=== PATIENT | female | born 1955 | race Caucasian/White ===

== ENCOUNTER 2017-09-23 15:45 | Inpatient (IN) | payer MEDICARE, MEDICAID ==
[2017-09-23 16:36] LABS: #Eosinphils 0.3 thou/uL (0.0-0.7); #Lymphocytes 2.2 thou/uL (1.20-3.40); #Monocytes 0.7 thou/uL (0.11-0.59); #Neutrophils 4.3 thou/uL (1.40-6.50); %Basophils 0.6 % (0.0-1.0); %Eosinophils 4.1 % (0.0-10.0); %Lymphocytes 28.8 % (21.0-51.0); %Monocytes 9.8 % (0.0-10.0); %Neutrophils 56.7 % (42.0-75.0); Hemoglobin 14.4 g/dL (12.0-16.0); Mean Corpuscular HGB CONC 33.7 g/dL (32.0-36.0); Mean Corpuscular Hemoglobin 30.1 pg (27.0-31.0); Mean Corpuscular Volume 89.5 fl (81.0-99.0); Mean Platelet Volume 6.4 fL (7.4-10.4); Platelet Count 399 thou/uL (130-400); RBC Distribution Width 12.1 % (11.5-14.5); Red Blood Cell (RBC) Count 4.78 mill/uL (4.20-5.40); White Blood Cell (WBC) Count 7.6 thou/uL (4.8-10.8)
[2017-09-23 17:05] LABS: Bilirubin Negative (Negative); Blood, Urine Large (Negative); Glucose, Urine (Dipstick) Negative (Negative); Leukocyte Moderate (Negative); Nitrite Positive (Negative); Protein, Urine (Dipstick) 30 mg/dL (Neg-Trace); Specific Gravity, Urine 1.015 (1.005-1.030); Urobilinogen 0.2 mg/dL (0.2-1.0)
[2017-09-23 17:06] LABS: ALT (SGPT) 10 U/L (8-55); AST (SGOT) 13 U/L (5-34); Albumin 3.9 g/dL (3.4-4.8); Alkaline Phosphatase 93 U/L (40-150); Anion Gap 12 mmol/L (10-20); BUN (Urea Nitrogen) 22 mg/dL (9.8-20.1); Bilirubin, Total 0.3 mg/dL (0.2-1.2); Calc. Creatinine Clearance 0 mL/min (70-130); Calcium 9.3 mg/dL (7.8-10.44); Carbon Dioxide 23 mmol/L (23-31); Chloride 109 mmol/L (98-107); Estimated GFR-MDRD 50; Lipase 63 U/L (8-78); Potassium 3.5 mmol/L (3.5-5.1); Protein, Total 6.9 g/dL (6.0-8.3); Sodium 140 mmol/L (136-145)
[2017-09-23 17:07] LABS: Clarity Cloudy (Clear)
[2017-09-23 17:14] LABS: Glucose 59 mg/dL (80-115)
[2017-09-23 17:15] LABS: Bacteria/HPF 4+ HPF (None Seen); Hyaline Casts/LPF NONE SEEN LPF (0-3 Hyaline); RBC/HPF GREATER THAN 50-TNTC HPF (0-3); Squamous Epithelial 0-3 HPF (0-3)
[2017-09-23] MEDS ORDERED: Morphine 10 MG/ML VIAL ONE (17:36)
[2017-09-23] MEDS ORDERED: Dextrose 50% Abboject 50 ML SYRINGE ONE (17:36)
--- NOTE | 2017-09-23 18:18 | CT ---
CT ABDOMEN AND PELVIS WITHOUT CONTRAST: 09/23/17 Multiple axial tomograms obtained through the abdomen and pelvis with IV contrast. Oral contrast was not administered. INDICATIONS: Abdominal pain. Hematuria. FINDINGS: Lung bases are clear. the liver, spleen, and pancreas unremarkable. The stomach is distended with ingested material. Duodenum unremarkable. There is a small adenoma involving the medial limb of the left adrenal gland. This measures approxima tely 2.0 cm and is stable when compared to CT of abdomen dated 03/16/16. Review of the kidneys reveals a large staghorn type calculus involving the right renal pelvis with th e staghorn calculus extending into the right lower pole calyces and collecting structures. There is i nflammatory haziness surrounding the proximal right ureter. There is no evidence of ureteral calculus . The left kidney is small, although does show enhancement indicating function. There is no left hydron ephrosis. There is radiopaque material in the dependent portion of the urinary bladder which would indicate rec ently passed stones or primary bladder calculus this appears to layer which may represent numerous ti ny stones or gravel within the urinary bladder. Small bowel loops are unremarkable. Colon is unremarkable. Appendix unremarkable. The uterus and adnexa appear unremarkable. IMPRESSION: 1. Staghorn type calculus in the right renal pelvis and extending into the right lower pole raciel ecting structures. There is inflammatory haziness surrounding the right renal pelvis and proximal rig ht ureter. 2. Tiny stones and/or gravel which are seen in the dependent portion of the urinary bladder. 3. There is suggestion of mild bladder wall thickening. This was also described on the prior exa m. The prior study from 2016 also showed a tiny calculus in the bladder. 4. There is a left adrenal adenoma which is stable. POS: [facility]
[2017-09-23] MEDS ORDERED: ISOVUE-370 76%-LOCM 1 ML ONE (18:31)
[2017-09-23] MEDS ORDERED: cefTRIAXone\\ROCEPHIN 2 GM in Sodium Chloride 0.9% 100 ML IVPB SCH (18:45)
[2017-09-23] MEDS ORDERED: Acetaminophen 325 MG TAB PO PRN ×2 (21:16→22:13)
[2017-09-23] MEDS ORDERED: Sodium Chloride 0.9% 1,000 ML IV SCH (21:16)
[2017-09-23] MEDS ORDERED: Ondansetron ODT 4 MG TAB SL PRN (21:16)
[2017-09-23] MEDS ORDERED: Ondansetron HCl/PF 4 MG/2 ML Vial IVP PRN (21:16)
[2017-09-23] MEDS ORDERED: Morphine 4 MG/ML VIAL IV PRN (21:19)
[2017-09-23] MEDS ORDERED: Bisacodyl 5 MG TAB PO PRN (22:13)
[2017-09-23 22:43] LABS: Hemoglobin 13.6 g/dL (12.0-16.0)
--- NOTE | 2017-09-23 23:06 | HP ---
PRIMARY CARE PROVIDER: Hoang Gayle M.D. CHIEF COMPLAINT: Hematuria. HISTORY OF PRESENT ILLNESS: Ms. Moreira is a pleasant 61-year-old lady who was seen at [facility] on 09/23/2017. She reports that one week ago, she developed right lower quadrant abdominal pain. She describes it a s on and off initially, but constant over the last couple of days, 10/10 at its worst, sharp, nonradi ating, no known aggravating factors, but improved with morphine in the emergency room. She also reports that she had blood in her stools over the last week, but that has resolved. She als o reports that she had blood in her urine. She also reports pressures over her urinary bladder, which was dull and constant. She reports that h er urine started clearing up of blood earlier today morning. She reports generalized weakness. She denies any fevers or chills. She denies any nausea, vomiting or diarrhea. Abdominal pain has improv ed at this time after receiving morphine. REVIEW OF SYSTEMS: All other systems reviewed and found to be negative. PAST MEDICAL HISTORY: Multiple sclerosis, hypertension, Clostridium difficile, recurrent urinary tra ct infections and nephrolithiasis. PAST SURGICAL HISTORY: Urostomy with ileal conduit and cholecystectomy. PSYCHIATRIC HISTORY: Depression. FAMILY HISTORY: Significant for diabetes and multiple sclerosis. ALLERGIES: LEVOFLOXACIN and PENICILLIN. SOCIAL HISTORY: The patient denies tobacco use, alcohol use or recreational drug use. She lives [facility]. CURRENT MEDICATIONS: Copaxone 20 mg subcutaneously daily, tramadol 50 mg every 6 hours as needed, Xa nax 0.25 mg 3 times a day as needed, probiotic 1 capsule daily, Myrbetriq 25 mg daily, cholestyramine 4.5 grams every 3 days, fluoxetine 40 mg daily, Xanax 0.25 mg at bedtime, 3,4-diaminopyridine 1 caps ule 3 times a day, and aspirin 81 mg daily. PHYSICAL EXAMINATION: GENERAL: On examination, Ms. Moreira is awake and alert, not in acute distress. VITAL SIGNS: Blood pressure is 141/84, pulse is 77, she is breathing at rate of 19 and saturating 95 % on room air. She is afebrile. EYES: No scleral icterus. No conjunctival pallor. ENT: Dry mucosal membranes, no oropharyngeal erythema or exudates. NECK: Supple, nontender, trachea is midline. RESPIRATORY: Accessory muscles of breathing are not active. Chest wall movements are symmetric bila terally. Lungs clear to auscultation, without wheeze, rhonchi or crepitations. CARDIOVASCULAR: S1 and S2 are heard, regular. Peripheral pulses palpable. No carotid bruit, no per icardial rub. ABDOMEN: Soft, mild right CVA tenderness, no guarding or rigidity, bowel sounds heard, no hepatomega ly, no splenomegaly. She has an ileal conduit, that is draining clear urine. NEUROLOGIC: She has right-sided weakness. Deep tendon reflexes are 2+. SKIN: No rashes or subcutaneous nodules. LYMPHATIC: No cervical lymphadenopathy. PSYCHIATRIC: Normal mood, normal affect, patient is oriented to person, place, and time. LABORATORY DATA AND IMAGING: Ms. Moreira's labs and investigations were reviewed. I reviewed her e lectrocardiogram, which shows normal sinus rhythm, no ST changes to suggest an acute coronary syndrom e. I also reviewed CT scan of abdomen and pelvis, which shows staghorn calculus in the right renal p nuno. She also has left adrenal adenoma, which is stable according to radiologist. She has a kathie l white count, normal hemoglobin, normal platelet count, normal sodium, normal potassium, normal crea tinine, normal liver profile, normal lipase and urinalysis that is positive for blood, nitrite and le ukocyte esterase. ASSESSMENT AND PLAN: Ms. Moreira is a pleasant 61-year-old lady who was seen at [facility] on 09/23/2017. Her problem list includes: 1. Hematuria: Most likely secondary to complicated urinary tract infection in the form of pyeloneph ritis along with staghorn calculus. 2. Urinary tract infection. She has received a dose of ceftriaxone in the emergency room, which I w ill continue for now. Having said that, she had urinary tract infections in the past. In 08/2016, s he had a urinary tract infection with Escherichia coli, which was pansensitive as well as ESBL Klebsi gagan pneumonia, which was zavala resistant including to meropenem. We will await urine cultures and con sult Infectious Diseases if necessary. 3. Staghorn calculus: Urology Service is being consulted by emergency room physician for help with further management. 4. Hematochezia: The patient reports blood in the stool, which has resolved now. We will check sto ol for occult blood. We will check serial H&H. If hemoglobin drops, we will consult Gastroenterolog y Service. 5. Multiple sclerosis: Continue home medications. Many thanks for allowing me to participate in your patient's care. Please feel free to contact me wi th any questions or concerns. LEVEL OF RISK: High. LEVEL OF COMPLEXITY: High.
[2017-09-23 23:21] VITALS: BMI 24.9
[2017-09-24] MEDS ORDERED: traMADol HCl 50 MG TAB PO PRN (01:26)
[2017-09-24] MEDS ORDERED: ALPRAZolam 0.25 MG TAB PO SCH (01:45)
[2017-09-24] MEDS: Sodium Chloride 0.9% 1,000 ML IV SCH ×2 (01:50→08:14)
[2017-09-24 05:34] LABS: #Basophils 0.1 thou/uL (0.0-0.2); #Eosinphils 0.4 thou/uL (0.0-0.7); #Lymphocytes 2.4 thou/uL (1.20-3.40); #Monocytes 0.9 thou/uL (0.11-0.59); #Neutrophils 5.4 thou/uL (1.40-6.50); %Basophils 0.6 % (0.0-1.0); %Eosinophils 4.5 % (0.0-10.0); %Lymphocytes 25.7 % (21.0-51.0); %Monocytes 10.2 % (0.0-10.0); %Neutrophils 58.9 % (42.0-75.0); Hemoglobin 12.3 g/dL (12.0-16.0); Mean Corpuscular HGB CONC 34.6 g/dL (32.0-36.0); Mean Corpuscular Hemoglobin 31.2 pg (27.0-31.0); Mean Corpuscular Volume 90.1 fl (81.0-99.0); Mean Platelet Volume 6.8 fL (7.4-10.4); Platelet Count 315 thou/uL (130-400); RBC Distribution Width 12.1 % (11.5-14.5); Red Blood Cell (RBC) Count 3.96 mill/uL (4.20-5.40); White Blood Cell (WBC) Count 9.2 thou/uL (4.8-10.8)
[2017-09-24 05:42] LABS: Anion Gap 10 mmol/L (10-20); BUN (Urea Nitrogen) 18 mg/dL (9.8-20.1); Calc. Creatinine Clearance 67 mL/min (70-130); Calcium 8.2 mg/dL (7.8-10.44); Carbon Dioxide 20 mmol/L (23-31); Chloride 114 mmol/L (98-107); Estimated GFR-MDRD 60; Glucose 95 mg/dL (80-115); Potassium 3.3 mmol/L (3.5-5.1); Sodium 141 mmol/L (136-145)
[2017-09-24] MEDS: FLUoxetine HCl 20 MG CAP PO SCH (07:53)
[2017-09-24] MEDS: Aspirin 81 mg Enteric Coated Tablet PO SCH (07:55)
[2017-09-24] MEDS: Saccharomyces boulardii 250 MG CAP PO SCH (07:55)
[2017-09-24] MEDS: Cetirizine HCl 10 MG TAB PO SCH (08:14)
[2017-09-24] MEDS ORDERED: Enoxaparin Sodium 40 MG/0.4 ML SYRINGE SC SCH (09:00)
[2017-09-24] MEDS ORDERED: Cholestyramine/Aspartame 4 gm Packet PO SCH (09:00)
--- NOTE | 2017-09-24 11:01 | PDOC.PN ---
- Subjective Encounter Start Date: 09/24/17 Encounter Start Time: 10:59 Subjective: no fever, hematura cleared - Objective MAR Reviewed: Yes Vital Signs & Weight: Vital Signs (12 hours) Temp Pulse Resp BP Pulse Ox 09/24/17 07:23 98.2 F 90 18 09/24/17 06:58 98.2 F 90 18 120/78 95 09/24/17 04:00 97.9 F 86 20 116/70 95 09/24/17 00:00 99.1 F 81 20 111/69 94 L Weight Weight 149 lb 14.629 oz Result Diagrams: 09/24/17 04:42 09/24/17 04:42 Phys Exam - Physical Examination Neck: no JVD Respiratory: clear to auscultation bilateral Cardiovascular: RRR, no significant murmur Gastrointestinal: soft, positive bowel sounds Musculoskeletal: no edema R hemiplegia Dx/Plan (1) Hematuria, gross Status: Acute (2) UTI (urinary tract infection) Status: Acute Comment: with urostomy+ (3) HTN (hypertension) Code(s): I10 - ESSENTIAL (PRIMARY) HYPERTENSION Status: Chronic Qualifiers: Hypertension type: essential hypertension Qualified Code(s): I10 - Essential (primary) hypertension (4) Hemiplegia Code(s): G81.90 - HEMIPLEGIA, UNSPECIFIED AFFECTING UNSPECIFIED SIDE Status: Chronic Qualifiers: Hemiplegia type: flaccid Cerebrovascular disease type: other Hemiplegia laterality: right dominant side Comment: multiple scherosis (5) History of urostomy Code(s): Z98.89 - OTHER SPECIFIED POSTPROCEDURAL STATES * DO NOT USE * Status : Chronic (6) Multiple sclerosis Code(s): G35 - MULTIPLE SCLEROSIS Status: Chronic (7) Nephrolithiasis Status: Chronic - Plan C&S pending -: cont iv antibx -: need 2 overnites for culture ID and sensitivities in complicated UTI * .
--- NOTE | 2017-09-24 13:31 | RAD ---
KUB: Date: 09/24/17 HISTORY: Right renal calculus. FINDINGS/IMPRESSION: There is a right-sided staghorn calculus. The bowel gas pattern is unremarkable. POS: [facility]
[2017-09-24] MEDS: AMINOPYRIDINE PO SCH (13:40)
--- NOTE | 2017-09-24 17:17 | CON ---
DATE OF CONSULTATION: 09/24/2017 HISTORY OF PRESENT ILLNESS: A 61-year-old white female who I was asked to see today by the [facility] team. I have seen her years ago. She has a long history of MS and she developed a neurogenic feng dder related to it and she developed a high pressure neurogenic bladder and renal insufficiency. She was seen by a reconstructive urologist in [place] probably 5-7 years ago and had an ileal vesicostom y procedure done in order to allow some continence of urine and also to lower her bladder pressures t o protect her upper tracts. She was seeing the urologist there until I guess they retired and moved and she has not seen urologist recently. She knows she has had a stone in her right kidney and I hav e looked back through her records of those in 2016, she did have a small stone in the right renal pel vis. Now, she has a large partial staghorn that goes from the renal pelvis into the lower pole. She has not been having pain in her flank related to this and it does not appear that is causing any obs truction. She has had frequent urinary tract infections/urinary colonization. She says she normally is not symptomatic from these in terms of fevers, chills or discomfort, but she will have some vagin al drainage and she will get treated for these and unfortunately, she started develop problems with v abraham highly resistant urinary tract bacteria and frequent yeast infections. She has seen Dr. Omkar vaughan this in the past. I believe he has been reconsulted at this time. She has come into the hospital this time because she was having some blood that she saw her urine, blood that she saw in her stools and also some bloody discharge from her vagina. Her white count was normal. She has been afebrile w ith stable vital signs while she has been here. Her hemoglobin is 14.4, when she got in 12.3 now. H er creatinine is 1.1 when she came, 0.9 now. Urinalysis which was probably taken from her bag shows greater than 50 red cells, greater than 50 white cells and 4+ bacteria. Microbiology has been set up and is pending. She did have a CAT scan done which as mentioned shows the right partial staghorn st one. She has some atrophy of the left kidney. This is not new. It was seen on her CAT scan a coupl e of years ago. She also has some small calculi in the dependent portion of her bladder. PAST MEDICAL SURGICAL HISTORY: Includes ileal vesicostomy and cholecystectomy. Her medical history includes her multiple sclerosis in which she is now on a wheelchair for that and she has mentioned in the past, renal insufficiency, although her creatinine currently is normal. She does have some hist ory of anxiety and depressive disorders. ALLERGIES: She has allergies to PENICILLIN and to QUINOLONES. ROUTINE MEDICATIONS: All listed, but also have included Myrbetriq. PHYSICAL EXAMINATION: ABDOMEN: She does not have flank tenderness. Her abdomen is soft, nontender. Vesicostomy site is d ressed with a drainage bag and looking through it, does not look abnormal. Did not remove the bag at this time, however. GENITOURINARY: Vaginal exam, there is a little bit of vaginal drainage, which is some slight discolo ration, it is nothing that appears to be actively bleeding and I do feel obvious mass vaginally. IMPRESSION: 1. Right partial staghorn stone. 2. Left renal atrophy. 3. 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 4. Unfortunately, the development of resistant urinary tract pathogens related to frequent use of an tibiotics. 5. Recurrent yeast infections related to use of antibiotics. I talked with her about the size of th e stone and the fact that she probably does need to have this treated. I think it is probably too bi g for ureteroscopy or extracorporeal shockwave lithotripsy is probably something that would be requir ed for and have to review this with Radiology to see if they can easily get a nephrostomy tube in her . We will get a KUB on her today and maybe we can get a little better idea how big the stone is. We will follow along with you. I think that cutting back on a treatment for asymptomatic infections wo uld be tamayo in a patient with ileal vesicostomy as they will always be colonized with bacteria and he r urinalysis will always appear abnormal. I will follow along with you.
[2017-09-24] MEDS: ALPRAZolam 0.25 MG TAB PO PRN (17:59)
[2017-09-24] MEDS: cefTRIAXone\\ROCEPHIN 1 GM in Sodium Chloride 0.9% 100 ML IVPB SCH (21:59)
[2017-09-25] MEDS: Sodium Chloride 0.9% 1,000 ML IV SCH ×2 (01:44→20:10)
[2017-09-25] MEDS: ALPRAZolam 0.25 MG TAB PO PRN ×2 (01:45→23:10)
[2017-09-25] MEDS: AMINOPYRIDINE PO SCH ×2 (10:01→16:40)
[2017-09-25] MEDS: Saccharomyces boulardii 250 MG CAP PO SCH (10:02)
[2017-09-25] MEDS: Aspirin 81 mg Enteric Coated Tablet PO SCH (10:02)
[2017-09-25] MEDS: FLUoxetine HCl 20 MG CAP PO SCH (10:02)
[2017-09-25] MEDS: Cetirizine HCl 10 MG TAB PO SCH (10:03)
[2017-09-25] MEDS: GLATIRAMER ACETATE 20 MG SC SCH (10:09)
--- NOTE | 2017-09-25 10:46 | PDOC.PN ---
- Subjective Encounter Start Date: 09/25/17 Encounter Start Time: 09:15 -: old records requested/rev Patient seen and examined. No new complaints. No overnight events - Objective MAR Reviewed: Yes Vital Signs & Weight: Vital Signs (12 hours) Temp Pulse Resp BP Pulse Ox 09/25/17 07:14 98.1 F 86 18 135/84 95 09/25/17 04:29 98.7 F 84 20 96 I&O: 09/24/17 09/25/17 09/26/17 06:59 06:59 06:59 Intake Total 2340 Output Total 1200 Balance 1140 Result Diagrams: 09/24/17 04:42 09/24/17 04:42 Phys Exam - Physical Examination Constitutional: NAD HEENT: PERRLA, moist MMs, sclera anicteric Neck: no JVD, supple Respiratory: no wheezing, no rales, no rhonchi Cardiovascular: RRR, no significant murmur, no rub Gastrointestinal: soft, non-tender, no distention, positive bowel sounds urostomy Musculoskeletal: no edema, pulses present right side hemiplegia Psychiatric: normal affect, A&O x 3 Skin: no rash, normal turgor Dx/Plan (1) Hematuria, gross Status: Acute (2) Sepsis Code(s): A41.9 - SEPSIS, UNSPECIFIED ORGANISM Status: Acute Qualifiers: Sepsis type: sepsis due to unspecified organism Qualified Code(s): A41.9 - Sepsis, unspecified organism (3) Staghorn renal calculus Code(s): N20.0 - CALCULUS OF KIDNEY Status: Acute (4) UTI (urinary tract infection) Status: Acute Comment: with urostomy+ (5) HTN (hypertension) Code(s): I10 - ESSENTIAL (PRIMARY) HYPERTENSION Status: Chronic Qualifiers: Hypertension type: essential hypertension Qualified Code(s): I10 - Essential (primary) hypertension (6) Hemiplegia Code(s): G81.90 - HEMIPLEGIA, UNSPECIFIED AFFECTING UNSPECIFIED SIDE Status: Chronic Qualifiers: Hemiplegia type: flaccid Cerebrovascular disease type: other Hemiplegia laterality: right dominant side Comment: multiple scherosis (7) History of urostomy Code(s): Z98.89 - OTHER SPECIFIED POSTPROCEDURAL STATES * DO NOT USE * Status : Chronic (8) Multiple sclerosis Code(s): G35 - MULTIPLE SCLEROSIS Status: Chronic (9) Nephrolithiasis Status: Chronic - Plan cont current plan of care, continue antibiotics * continue rocephin * urology following * medication reviewed as below * symptomatic treatment. Review of Systems - Review of Systems ENT: negative: Ear Pain, Ear Discharge, Nose Pain, Nose Discharge, Nose Congestion, Mouth Pain, Mouth Swelling, Throat Pain, Throat Swelling, Other Respiratory: negative: Cough, Dry, Shortness of Breath, Hemoptysis, SOB with Excertion, Pleuritic Pain, Sputum, Wheezing Cardiovascular: negative: chest pain, palpitations, orthopnea, paroxysmal nocturnal dyspnea, edema, light headedness, other Gastrointestinal: negative: Nausea, Vomiting, Abdominal Pain, Diarrhea, Constipation, Melena, Hematochezia, Other Genitourinary: negative: Dysuria, Frequency, Incontinence, Hematuria, Retention , Other Musculoskeletal: negative: Neck Pain, Shoulder Pain, Arm Pain, Back Pain, Hand Pain, Leg Pain, Foot Pain, Other Skin: negative: Rash, Lesions, Francisco, Bruising, Other - Medications/Allergies Allergies/Adverse Reactions: Allergies Allergy/AdvReac Type Severity Reaction Status Date / Time levofloxacin [From Levaquin] Allergy Unknown Verified 08/28/15 22:07 Penicillins Allergy Verified 08/28/15 22:07 Medications: Current Medications Acetaminophen (Tylenol) 650 mg PO Q4H PRN PRN Reason: Headache/Fever or Pain Alprazolam (Xanax) 0.25 mg PO TID PRN PRN Reason: Anxiety Last Admin: 09/25/17 01:45 Dose: 0.25 mg Aspirin (Ecotrin) 81 mg PO DAILY [facility] Last Admin: 09/25/17 10:02 Dose: Not Given Bisacodyl (Dulcolax) 10 mg PO DAILYPRN PRN PRN Reason: Constipation Cetirizine HCl (Zyrtec) 10 mg PO DAILY [facility] Last Admin: 09/25/17 10:03 Dose: Not Given Cholestyramine Resin (Questran Light) 2 gm PO Q3DAYS [facility] Last Admin: 09/24/17 07:54 Dose: Not Given Fluoxetine HCl (Prozac) 40 mg PO DAILY [facility] Last Admin: 09/25/17 10:02 Dose: 40 mg Ceftriaxone Sodium 1 gm/ (Sodium Chloride) 100 mls @ 200 mls/hr IVPB Q24HR [facility] Last Admin: 09/24/17 21:59 Dose: 100 mls Sodium Chloride (Normal Saline 0.9%) 1,000 mls @ 70 mls/hr IV .[id number] [facility] Last Admin: 09/25/17 01:44 Dose: 1,000 mls Mirabegron (Myrbetriq Er) 25 mg PO DAILY [facility] Last Admin: 09/25/17 10:03 Dose: Not Given (4-Aminopyridine 1 (Cap) 10 Mg) 1 each PO 0900,1400 [facility] Last Admin: 09/25/17 10:01 Dose: 1 each (Glatiramer Acetate [Copaxone] 20 Mg) Hm Med 0 each SC DAILY [facility] Last Admin: 09/25/17 10:09 Dose: 1 each Saccharomyces Boulardii (Florastor) 250 mg PO DAILY [facility] Last Admin: 09/25/17 10:02 Dose: 250 mg Sodium Chloride (Flush - Normal Saline) 10 ml IVF Q12HR [facility] Last Admin: 09/25/17 10:05 Dose: Not Given Sodium Chloride (Flush - Normal Saline) 10 ml IVF PRN PRN PRN Reason: Saline Flush Tramadol HCl (Ultram) 50 mg PO Q6HR PRN PRN Reason: Pain Last Admin: 09/24/17 17:59 Dose: 50 mg
[2017-09-25 11:44] LABS: INR-International Normal Ratio 1.1; Prothrombin Time 14.1 SEC (12.0-14.7)
[2017-09-25] MEDS: cefTRIAXone\\ROCEPHIN 1 GM in Sodium Chloride 0.9% 100 ML IVPB SCH (20:09)
[2017-09-26] MEDS: AMINOPYRIDINE PO SCH (08:02)
[2017-09-26] MEDS: FLUoxetine HCl 20 MG CAP PO SCH (08:03)
[2017-09-26] MEDS: Saccharomyces boulardii 250 MG CAP PO SCH (08:03)
[2017-09-26] MEDS: Cetirizine HCl 10 MG TAB PO SCH (08:04)
[2017-09-26] MEDS: Sodium Chloride 0.9% 1,000 ML IV SCH (11:19)
[2017-09-26] MEDS: GLATIRAMER ACETATE 20 MG SC SCH (11:21)
[2017-09-26 11:28] VITALS: BP 124/78; TEMP 97.9
--- NOTE | 2017-09-26 12:03 | PDOC.PN ---
- Subjective Encounter Start Date: 09/26/17 Encounter Start Time: 12:02 Ms. Moreira was seen today in follow-up of nephrolithiasis. she does not have any abdominal pain or flank pain today. - Objective MAR Reviewed: Yes Vital Signs & Weight: Vital Signs (12 hours) Temp Pulse Resp BP BP Pulse Ox 09/26/17 11:00 97.9 F 83 16 124/78 96 09/26/17 08:00 98.2 F 82 18 09/26/17 07:22 98.2 F 82 18 125/73 95 09/26/17 04:00 98.5 F 84 18 131/73 96 I&O: 09/25/17 09/26/17 09/27/17 06:59 06:59 06:59 Intake Total 2340 1430 Output Total 1200 4350 Balance 1140 -2920 Result Diagrams: 09/24/17 04:42 09/24/17 04:42 Phys Exam - Physical Examination HEENT: PERRLA Respiratory: no wheezing, no rales, no rhonchi, clear to auscultation bilateral Cardiovascular: RRR, no significant murmur, no rub Gastrointestinal: soft, non-tender, no distention, positive bowel sounds Musculoskeletal: no edema Dx/Plan (1) Asymptomatic bacteriuria Code(s): R82.71 - BACTERIURIA Status: Acute (2) Hematuria, gross Status: Acute (3) Staghorn renal calculus Code(s): N20.0 - CALCULUS OF KIDNEY Status: Acute (4) HTN (hypertension) Code(s): I10 - ESSENTIAL (PRIMARY) HYPERTENSION Status: Chronic Qualifiers: Hypertension type: essential hypertension Qualified Code(s): I10 - Essential (primary) hypertension (5) Multiple sclerosis Code(s): G35 - MULTIPLE SCLEROSIS Status: Chronic - Plan * Staghorn Calculus- Urology input appreciated * She is stable for discharge home today and outpatient follow-up for ureteral STENT.
--- NOTE | 2017-09-26 12:32 | DIS ---
DATE OF ADMISSION: 09/23/2017 DATE OF DISCHARGE: 09/26/2017 PRIMARY CARE PHYSICIAN: Hoang Gayle M.D. DISCHARGE DISPOSITION: Home. PRIMARY DISCHARGE DIAGNOSES: 1. Hematuria secondary to staghorn nephrolithiasis. 2. Hypertension. 3. History of multiple sclerosis. 4. History of recurrent urinary tract infections due to urinary retention from neurogenic bladder fr om multiple sclerosis. DISCHARGE MEDICATIONS: Include tramadol 50 mg q.6 as needed, Florastor 250 mg daily, Myrbetriq 25 mg extended release daily, Copaxone 20 mg subcu daily, Prozac 40 mg daily, Questran 1 packet every 3 da ys, Zyrtec 10 mg daily, aspirin 81 mg a day, alprazolam 0.25 mg t.i.d. as needed and aminopyridine 1 tablet twice a day. PROCEDURES DONE DURING ADMISSION: The patient had a CT scan of the abdomen and pelvis in which there was a staghorn type calculus in the right renal pelvis extending into the right lower pole of the co llecting structures. There was tiny stones and/or gravel seen in the dependent portion of the urinar y bladder. There was a left adrenal adenoma, which was stable. The patient also had an x-ray of the abdomen, which showed a right-sided staghorn calculus. CODE STATUS: Full Code. ALLERGIES: LEVOFLOXACIN and PENICILLINS. CONSULTANTS DURING HOSPITALIZATION: Include Dr. Napoles with Urology. HOSPITAL COURSE: Ms. Moreira is a pleasant 61-year-old female who was admitted to the hospital afte r experiencing hematuria and some flank pain. She was admitted and found to have a staghorn calculus in the right renal pelvis. She was seen by Urology. The treatment of which was discussed. It did not appear that the stone was causing any obstruction and in fact her creatinine actually improved wi th some mild hydration from 1.1 to 0.94 during the hospital stay; however, it was recommended that bob honeycutt undergo a ureteral stent. However, because she had been on aspirin, this would need to be delayed and she will be discharged home and then brought back in the outpatient setting to have the ureteral stent placed. She was also found to have a urinary tract infection, which was thought to be more asy mptomatic bacteriuria and chronic colonization then due to a true invasive infection. For this reaso n, antibiotics will be discontinued. She has no fever, no elevated white count and at the time of di scharge, no symptoms attributable to urinary tract infection. She will therefore be discharged home and to have close outpatient followup.
== END 2017-09-26 14:55 | disposition home or self-care (01) | DRG 694 ==
LOC: ERS 15:45 → T4-B 20:49 → INTOOBSV 20:49 → OBSVTOIN 09-24 10:51
PROVIDERS: ADMIT Family Medicine; ATTEND Family Medicine
DX: N20.0 Calculus of kidney (principal); K92.1 Melena; G81.91 Hemiplegia, unspecified affecting right dominant side; R31.0 Gross hematuria; D35.00 Benign neoplasm of unspecified adrenal gland; I10 Essential (primary) hypertension; N26.1 Atrophy of kidney (terminal); G35 Multiple sclerosis; F32.9 Major depressive disorder, single episode, unspecified; Z88.0 Allergy status to penicillin; Z88.1 Allergy status to other antibiotic agents; Z90.49 Acquired absence of other specified parts of digestive tract
CPT/HCPCS: 36415; 36416; 74018; 74177; 80048; 80053; 81003; 81015; 82274; 83690; 85025; 85610; 85730; 87077; 87086; 87186; 93005; 94760; 96361; 96365; 96375; A4216; J0696; J2270; J7050

== ENCOUNTER 2017-10-03 19:10 | Inpatient (IN) | payer MEDICARE, MEDICAID ==
[2017-10-03 20:01] LABS: Hemoglobin 14.3 g/dL (12.0-16.0); Mean Corpuscular HGB CONC 33.6 g/dL (32.0-36.0); Mean Corpuscular Hemoglobin 30.4 pg (27.0-31.0); Mean Corpuscular Volume 90.4 fl (81.0-99.0); Mean Platelet Volume 6.8 fL (7.4-10.4); Platelet Count 320 thou/uL (130-400); RBC Distribution Width 12.4 % (11.5-14.5); Red Blood Cell (RBC) Count 4.72 mill/uL (4.20-5.40); White Blood Cell (WBC) Count 25.1 thou/uL (4.8-10.8)
[2017-10-03 20:12] LABS: Amphetamine Not Detected (NotDetected); Barbiturates Screen Not Detected (NotDetected); Benzodiazepine Screen Detected (NotDetected); Cocaine Metabolite Screen Not Detected (NotDetected); Medtox Control Line Valid? VALID (VALID); Medtox Reader # READER 4; Methadone Not Detected (NotDetected); Methamphetamine Not Detected (NotDetected); Opiate Screen Not Detected (NotDetected); Oxycodone Screen Not Detected (NotDetected); Phencyclidine (PCP) Not Detected (NotDetected); THC/Cannabinoid Screen Not Detected (NotDetected); Tricyclic Screen Not Detected (NotDetected)
[2017-10-03 20:19] LABS: ALT (SGPT) 38 U/L (8-55); AST (SGOT) 43 U/L (5-34); Acetaminophen Less than 6.0 mcg/mL (10.0-30.0); Albumin 3.8 g/dL (3.4-4.8); Alcohol Less than 10 mg/dL (Less than 10); Alkaline Phosphatase 87 U/L (40-150); Anion Gap 15 mmol/L (10-20); BUN (Urea Nitrogen) 22 mg/dL (9.8-20.1); Bilirubin, Total 0.6 mg/dL (0.2-1.2); Calc. Creatinine Clearance 0 mL/min (70-130); Carbon Dioxide 21 mmol/L (23-31); Chloride 107 mmol/L (98-107); Estimated GFR-MDRD 47; Globulin 2.8 g/dL (2.4-3.5); Glucose 137 mg/dL (80-115); Potassium 3.3 mmol/L (3.5-5.1); Protein, Total 6.6 g/dL (6.0-8.3); Salicylate Less than 8.0 mg/dL (15.0-30.0); Sodium 140 mmol/L (136-145)
[2017-10-03 20:24] LABS: CKMB 0.4 ng/mL (0-6.6); Troponin I Less than 0.010 ng/mL (< 0.028)
[2017-10-03 20:32] LABS: Band 23 % (5-11); Lymphocytes 4 % (21-51); MDiff Complete? YES; Monocytes 1 % (0-10); Neutrophil 72 % (42-75); PLT Morphology Comment Appears Adequate
[2017-10-03] MEDS ORDERED: Gentamicin Sulfate 80 MG in Premix Bag 1 BAG IVPB SCH (21:45)
[2017-10-03] MEDS ORDERED: Guaifenesin DM 100-10/5 ML UDCUP PO PRN (21:53)
[2017-10-03] MEDS ORDERED: Acetaminophen 325 MG TAB PO PRN (21:53)
[2017-10-03] MEDS ORDERED: traMADol HCl 50 MG TAB PO PRN (21:53)
[2017-10-03] MEDS ORDERED: Mag-Al 1200 mg/1200 mg/30 ML UDCUP PO PRN (21:53)
[2017-10-04] MEDS: Cefepime 2 GM in Sodium Chloride 0.9% 100 ML IVPB SCH ×2 (00:01→12:01)
[2017-10-04] MEDS: Sodium Chloride 0.9% 1,000 ML IV SCH ×3 (00:02→19:07)
[2017-10-04] MEDS: ALPRAZolam 0.25 MG TAB PO PRN ×3 (00:02→22:00)
[2017-10-04 00:19] VITALS: BMI 27.8
[2017-10-04 01:53] LABS: Lactic Acid 0.9 mmol/L (0.5-2.2)
[2017-10-04 04:45] LABS: #Lymphocytes 1.7 thou/uL (1.20-3.40); #Monocytes 1.2 thou/uL (0.11-0.59); #Neutrophils 11.5 thou/uL (1.40-6.50); %Basophils 0.1 % (0.0-1.0); %Eosinophils 0.3 % (0.0-10.0); %Lymphocytes 11.8 % (21.0-51.0); %Monocytes 8.4 % (0.0-10.0); %Neutrophils 79.4 % (42.0-75.0); Hemoglobin 11.5 g/dL (12.0-16.0); Mean Corpuscular Hemoglobin 30.4 pg (27.0-31.0); Mean Corpuscular Volume 89.5 fl (81.0-99.0); Mean Platelet Volume 6.8 fL (7.4-10.4); Platelet Count 241 thou/uL (130-400); RBC Distribution Width 12.3 % (11.5-14.5); Red Blood Cell (RBC) Count 3.79 mill/uL (4.20-5.40); White Blood Cell (WBC) Count 14.5 thou/uL (4.8-10.8)
[2017-10-04 04:56] LABS: Anion Gap 10 mmol/L (10-20); BUN (Urea Nitrogen) 24 mg/dL (9.8-20.1); Calc. Creatinine Clearance 67 mL/min (70-130); Calcium 8.1 mg/dL (7.8-10.44); Carbon Dioxide 23 mmol/L (23-31); Chloride 109 mmol/L (98-107); Estimated GFR-MDRD 58; Glucose 87 mg/dL (80-115); Potassium 3.2 mmol/L (3.5-5.1); Sodium 139 mmol/L (136-145)
--- NOTE | 2017-10-04 05:33 | HP ---
REASON FOR ADMISSION: Sepsis, urinary tract infection, history of staghorn calculus on the right. HISTORY OF PRESENTING ILLNESS: Please note, I have seen and examined patient on 10/03/2017. The patient had come for placement of percutaneous nephrostomy tube by Interventional Radiology yesterday. This could not be done due to anatomic positioning per Interventional Radiology report. Then patient went home and started sweating. She felt very hot. She normally moves her left upper extremity freely and wiggles her left toe due to multiple sclerosis, but she was unable to do these and she got worried. The patient finally managed to call EMS and was brought here. The patient also mentions that she usually has blood-tinged urine, but today it was very high colored. On arrival in ER, the patient was found to have had white count of 25 with a 23% bands. PAST MEDICAL AND SURGICAL HISTORY: History of multiple sclerosis with severe disability and she is essentially able to move only left upper extremity freely. Anxiety disorder, chronic right staghorn calculus with recurrent UTIs, cholecystectomy, ileostomy, tonsillectomy. The patient has history of multiple sclerosis from last 20 years and follows up with Dr. Raiza Escobedo for the same. CURRENT MEDICATIONS: The patient is on Copaxone 20 mg subcu daily, Ultram p.r.n. for pain, alprazolam 0.25 mg 3 times daily p.r.n. for anxiety, probiotic daily, Myrbetriq 25 mg daily, fluoxetine 40 mg daily, 4-diaminopyrimidin 1 capsule 3 times daily. Has been off aspirin for the procedure yesterday. ALLERGIES: LEVAQUIN and PENICILLIN. PERSONAL HISTORY: Does not abuse alcohol or drugs. No history of smoking. She lives by herself. Has a provider who comes 2 times a day. The provider comes in the morning and helps her into a electric wheelchair and she comes back in the evening to put her back into bed. The patient is able to manage herself with using her left upper extremity freely for dining and using remote for the TV and to call people. FAMILY HISTORY: Has a sister who is completely paralyzed with multiple sclerosis and lives in [place]. Mother at the age of 89 years of old age. Father when she was 12 years old, does not know the exact cause, he also had diabetes. Code status is DNR. This was discussed with patient. Power of consumer attorney is her caregiver and a close friend, Ms. Anderson. The patient has no children. REVIEW OF SYSTEMS: The following complete review of systems was negative, unless otherwise mentioned in the HPI or below: Constitutional: Weight loss or gain, ability to conduct usual activities. Skin: Rash, itching. Eyes: Double vision, pain. ENT/Mouth: Nose bleeding, neck stiffness, pain, tenderness. Cardiovascular: Palpitations, dyspnea on exertion, orthopnea. Respiratory: Shortness of breath, wheezing, cough, hemoptysis, fever or night sweats. Gastrointestinal: Poor appetite, abdominal pain, heartburn, nausea, vomiting, constipation, or diarrhea. Genitourinary: Urgency, frequency, dysuria, nocturia. Musculoskeletal: Pain, swelling. Neurologic/Psychiatric: Anxiety, depression. Allergy/Immunologic: Skin rash, bleeding tendency. PHYSICAL EXAMINATION: GENERAL: The patient is a 61-year-old female, who is currently not in any acute distress. VITAL SIGNS: Blood pressure 120/74, pulse 100 per minute, respiratory rate 22 per minute, temperature 98.4 degrees Fahrenheit, saturating 94% on room air. NECK: Supple, no elevated JVD. HEENT: Eyes: Extraocular muscles intact. Pupils are reacting to light. Oral cavity: Mucous membranes are dry. No exudates or congestion. CARDIOVASCULAR SYSTEM: S1, S2 heard. Regular rhythm. RESPIRATORY SYSTEM: Air entry 1+ bilateral. No rales or rhonchi. ABDOMEN: Soft, bowel sounds heard. The patient has an ileostomy bag. No rigidity or guarding. EXTREMITIES: Mild peripheral edema. No calf tenderness. VASCULAR SYSTEM: Peripheral pulses 1+ bilateral. No ischemic ulcerations or gangrene. CENTRAL NERVOUS SYSTEM: The patient is able to move only left upper extremity freely. All other three extremities are paralyzed due to multiple sclerosis. She also has foot drop on both sides. PSYCHIATRIC SYSTEM: The patient's mood is euthymic. No hallucinations or delusions. LABORATORY AND X-RAY FINDINGS: White count of 25, H&H 14 and 42, platelet count 320 with 72% neutrophils and 23% bands. Potassium 3.3, serum bicarbonate 21, BUN 22, creatinine 1.1, glucose 137, lactic acid 3.4, AST 43. Cardiac enzymes x1 is negative. Albumin is 3.8. EKG done shows sinus tachycardia at 103 beats per minute. There is questionable Q-wave seen in V2, V3 and poor R- wave progression. CLINICAL IMPRESSION AND PLAN: The patient will be admitted to medical floor for sepsis with urinary tract infection. She also has staghorn calculus on the right. The initial plan per patient was to have a nephrostomy tube placed by Interventional Radiology and further procedures on next Monday by Dr. Napoles for the staghorn calculus. She will be on normal saline at 100 mL per hour. Based on prior cultures and sensitivity, the patient will be placed on cefepime and Bactrim. A repeat blood and urine cultures have been sent from ER. We will continue her Prozac, Myrbetriq, Florastor and Ultram as before. We will also continue her MS medication including Copaxone and diaminopyrimidin. Dr. Sosa, her urologist, will also be consulted during her stay here. We will also consult Dr. Espitia for Infectious Disease. The patient's code status is DNR. This was discussed with patient. CHANDRAKANT
[2017-10-04] MEDS: AMINOPYRIDINE PO SCH ×2 (08:38→17:00)
[2017-10-04] MEDS: Potassium Chloride 20 MEQ TAB PO SCH ×2 (08:39→17:00)
[2017-10-04] MEDS: FLUoxetine HCl 20 MG CAP PO SCH (08:40)
[2017-10-04] MEDS: Saccharomyces boulardii 250 MG CAP PO SCH (08:40)
[2017-10-04] MEDS: Famotidine 20 MG TAB PO SCH ×4 (08:43→21:59)
[2017-10-04] MEDS: Docusate 100 MG CAP PO SCH ×2 (08:45→20:22)
[2017-10-04] MEDS ORDERED: Sulfameth/Trimethoprim DS 800-160mg TAB PO SCH (09:00)
--- NOTE | 2017-10-04 10:48 | ULT ---
BILATERAL LOWER EXTREMITY VENOUS DOPPLER ULTRASOUND: HISTORY: Right leg edema. TECHNIQUE: Hernandez-scale ultrasound with color-flow and spectral Doppler imaging of the deep venous systems of the lower extremities is performed bilaterally. FINDINGS: There is good flow, compression, and augmentation noted in the common femoral, femoral, deep femoral, popliteal, posterior tibial, and greater saphenous veins on either side. IMPRESSION: No evidence of deep venous thrombosis in either lower extremity. POS: LAUREL
--- NOTE | 2017-10-04 12:54 | PDOC.PN ---
- Subjective Encounter Start Date: 10/04/17 Encounter Start Time: 12:57 Patient seen and examined following admission for sepsis likely 2/2 UTI. Also has a staghorn calculus. Has no complaints. - Objective Resuscitation Status: Resuscitation Status DNR:Do Not Resuscitate MAR Reviewed: Yes Vital Signs & Weight: Vital Signs (12 hours) Temp Pulse Resp BP Pulse Ox 10/04/17 11:16 98.9 F 80 18 100/67 94 L 10/04/17 08:00 98.5 F 88 18 98 10/04/17 07:28 98.5 F 88 18 87/53 L 98 10/04/17 05:21 98.1 F 88 18 86/47 L 96 Weight Weight 157 lb 6.4 oz I&O: 10/03/17 10/04/17 10/05/17 06:59 06:59 06:59 Intake Total 1230 Output Total 200 Balance 1030 Result Diagrams: 10/04/17 04:09 10/04/17 04:09 Phys Exam - Physical Examination Constitutional: NAD HEENT: moist MMs, sclera anicteric, oral pharynx no lesions Neck: supple, full ROM Respiratory: no wheezing, no rales, no rhonchi, clear to auscultation bilateral Cardiovascular: RRR, no significant murmur, no rub Gastrointestinal: soft, non-tender, no distention, positive bowel sounds Musculoskeletal: no edema, pulses present Psychiatric: normal affect, A&O x 3 Skin: no rash, normal turgor Dx/Plan (1) Sepsis Code(s): A41.9 - SEPSIS, UNSPECIFIED ORGANISM Status: Acute Qualifiers: Sepsis type: sepsis due to unspecified organism Qualified Code(s): A41.9 - Sepsis, unspecified organism (2) Hypokalemia Code(s): E87.6 - HYPOKALEMIA Status: Acute (3) Staghorn renal calculus Code(s): N20.0 - CALCULUS OF KIDNEY Status: Chronic (4) HTN (hypertension) Code(s): I10 - ESSENTIAL (PRIMARY) HYPERTENSION Status: Chronic Qualifiers: Hypertension type: essential hypertension Qualified Code(s): I10 - Essential (primary) hypertension (5) Hemiplegia Code(s): G81.90 - HEMIPLEGIA, UNSPECIFIED AFFECTING UNSPECIFIED SIDE Status: Chronic Qualifiers: Hemiplegia type: flaccid Cerebrovascular disease type: other Hemiplegia laterality: right dominant side Comment: 2/2 multiple sclerosis (6) History of urostomy Code(s): Z98.89 - OTHER SPECIFIED POSTPROCEDURAL STATES * DO NOT USE * Status : Chronic (7) Multiple sclerosis Code(s): G35 - MULTIPLE SCLEROSIS Status: Chronic - Plan cont current plan of care, continue antibiotics, out of bed/ambulate Continue antibiotics Continue IVF f/u cultures Urology and ID consulted. Review of Systems - Medications/Allergies Allergies/Adverse Reactions: Allergies Allergy/AdvReac Type Severity Reaction Status Date / Time levofloxacin [From Levaquin] Allergy Unknown Verified 10/04/17 00:05 Penicillins Allergy Verified 10/04/17 00:05 Medications: Current Medications Acetaminophen (Tylenol) 650 mg PO Q4H PRN PRN Reason: Headache/Fever or Pain Al Hydroxide/Mg Hydroxide (Maalox) 30 ml PO Q6H PRN PRN Reason: Heartburn or Indigestion Alprazolam (Xanax) 0.25 mg PO TID PRN PRN Reason: Anxiety Last Admin: 10/04/17 00:02 Dose: 0.25 mg Docusate Sodium (Colace) 100 mg PO BID [facility] Last Admin: 10/04/17 08:45 Dose: Not Given Famotidine (Pepcid) 20 mg PO BID [facility] Last Admin: 10/04/17 08:43 Dose: 20 mg Fluoxetine HCl (Prozac) 40 mg PO DAILY [facility] Last Admin: 10/04/17 08:40 Dose: 40 mg Guaifenesin/Dextromethorphan (Robitussin Dm) 15 ml PO Q4H PRN PRN Reason: Cough Cefepime HCl 2 gm/ Sodium (Chloride) 100 mls @ 200 mls/hr IVPB 1100,2300 [facility] Last Admin: 10/04/17 12:01 Dose: 100 mls Sodium Chloride (Normal Saline 0.9%) 1,000 mls @ 100 mls/hr IV .Q10H [facility] Last Admin: 10/04/17 08:45 Dose: 1,000 mls Mirabegron (Myrbetriq Er) 25 mg PO DAILY [facility] Last Admin: 10/04/17 08:44 Dose: 25 mg 4-Aminopyridine 0 each PO BID-AC [facility] Last Admin: 10/04/17 08:38 Dose: 1 each Glatiramer Acetate [ (Copaxone] 20 Mg) 0 each SC DAILY [facility] Last Admin: 10/04/17 08:43 Dose: 1 each Potassium Chloride (K-Dur) 40 meq PO BID-WM [facility] Stop: 10/05/17 08:01 Last Admin: 10/04/17 08:39 Dose: 40 meq Saccharomyces Boulardii (Florastor) 250 mg PO DAILY [facility] Last Admin: 10/04/17 08:40 Dose: 250 mg Sodium Chloride (Flush - Normal Saline) 10 ml IVF Q12HR [facility] Last Admin: 10/04/17 08:46 Dose: 10 ml Sodium Chloride (Flush - Normal Saline) 10 ml IVF PRN PRN PRN Reason: Saline Flush Tramadol HCl (Ultram) 50 mg PO Q6H PRN PRN Reason: Pain 4-6 Trimethoprim/Sulfamethoxazole (Bactrim Ds) 1 tab PO BID [facility] Last Admin: 10/04/17 08:39 Dose: 1 tab
--- NOTE | 2017-10-04 15:01 | CON ---
DATE OF CONSULTATION: 10/04/2017 HISTORY OF PRESENT ILLNESS: This is a 61-year-old white female seen today at the [facility]. She has a fairly large right partial staghorn stone in the lower pole of the renal pelvis. I saw her a week or so ago when she was admitted and had a CAT scan that showed this. We had her se t up for a right nephrostomy tube which was to have been done yesterday. She came in for that proced ure and Dr. Garcia, the interventional radiologist, was unable to access the kidney through the part o f the collecting system which would give us easy access to the stone, so the plan after talking to olga morgan was for her to go home, come back on Monday of this next week and under an anesthetic, we will do a cystoscopic exam, place a right open-ended catheter upper ureter so that we can inject some contrast and distend the renal collecting system and hopefully allow him to get a good access in for percutan eous nephrostomy tube placement prior to having percutaneous laser nephrolithotripsy or ultrasonic ne phrolithotripsy. Yesterday after she went home, she felt feverish and chilled and was not feeling he rself at all and was concerned about an infection. She had received cefepime IV piggyback prior to t he procedure. She called an ambulance. She has MS and had no way to get herself and an ambulance br ought her to the emergency center. At the emergency center, she was found to have an elevated white blood cell count of 25,000. Her vital signs in the ER, vital signs, blood pressure 120/75, pulse is around 100, respiratory rate 22, 98.4 and high temperature in the recovery room is 99.1. Since being admitted to the hospital, she has been afebrile with a pulse in the 80s, decent O2 saturation. Bloo d pressure is little bit low, but this may be where she lives. She is basically at bed rest most of the time from her MS or in a wheelchair from her MS. She had cultures of blood done. She was starte d on cefepime and oral Bactrim. She contacted Dr. Francis, who was inspector final assembly conveyor line and covering for me l ast night. She had the patient admitted through the hospitalist service. She is still on cefepime a nd Bactrim. I did make her n.p.o. this morning when Dr. Francis called me about her and the [facility] ght was that she may need a stent, but she is feeling much better, does not have a fever. Her white count has already come down to 14.5. Her creatinine is normal. PAST MEDICAL HISTORY: Her medical history is somewhat complicated. She has had longstanding MS and is nonambulatory because of this. 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 She has been maintained with this. She does not see urologist back in [place] at this ti me. She has been having the urinary tract infections fairly frequently. Her medical history also in volves cholecystectomy and tonsillectomy. ALLERGIES: She has allergies to LEVAQUIN and PENICILLIN. MEDICATIONS: She has a long list of medicines which are well recorded, but she is also on Myrbetriq. I talked with Nedra today indicating that it does not appear that she needs a stent, so allow her to eat and take her regular medicines. I would expect that in the next day to 2 days, she should be able to go home. We will see if any cul tures grow anything and this may actually be helpful in terms of whether she requires a different typ e of antibiotic prior to the nephrostomy tube placement next week. She did ask what would be the ris ks of just not treating the stone. I told her that I think she would continue to have infections and that it is possible in the long run that the stone could cause damage or destruction of this kidney or could result in a significant life-threatening infection. At some point, this is a possibility. They have put a consult in for Dr. Espitia and I asked her to talk with Dr. Espitia about what his though ts were not treating the stone and whether she thought that was a consideration or not, so she will d iscuss that with him and I will follow with you while she is in the hospital.
--- NOTE | 2017-10-04 20:24 | CON ---
DATE OF CONSULTATION: 10/04/2017 REASON FOR CONSULTATION: Nephrolithiasis with pyelonephritis. HISTORY OF PRESENT ILLNESS: A 61-year-old known to me from prior visit who has a history of multiple sclerosis with a right hemiparesis and an ileal conduit following complications related to neurogenic bladder. She has had issues with kidney stones in the past associated with invasive UTI. She was seen by Dr. Napoles on 09/24/2017 and was noted to have a large partial staghorn calculus from the renal pelvis into the lower pole of the kidney. He then developed some microscopic hematuria, but no fever. Dr. Napoles then recommended first a diversion of the urinary flow, possibly through a nephrostomy tube. Radiologist was not successful in the attempt. The plan was to discharge the patient and then have her return for an elective cystoscopy to insert a catheter in the right ureter and distend the renal collecting system and then facilitate the placement of a percutaneous catheter by radiologist. Unfortunately, the patient developed symptomatic UTI with fever, tachycardia, and leukocytosis, and she was admitted for management. Apparently, Dr. Napoles has considered intervention and she is thinking about this possibility. Currently, she denies any headaches. She has the same neurological deficits with mostly right hemiparesis or hemiplegia. No headaches. No change in visual symptoms, sore throat, odynophagia, dysphagia. No cough, sputum production, or dyspnea. No abdominal pain. PAST MEDICAL HISTORY: Multiple sclerosis with neurogenic bladder; right hemiparesis; history of Clostridium difficile colitis; ileal conduit; cholecystectomy; nephrolithiasis, recurrent with obstruction. ALLERGIES: LEVAQUIN, it is mostly a reaction that she had in the lower extremities, but this is a presumption and it was not necessarily a hypersensitivity reaction. In my notes from 2016, I stated that the LEVAQUIN allergy was not a true hypersensitivity reaction and she has been able to tolerate quinolones before. FAMILY HISTORY: Diabetes and multiple sclerosis. CURRENT MEDICATIONS: Tylenol, Maalox, Xanax, cefepime, Colace, Lovenox, Pepcid , Prozac, Myrbetriq, glatiramer, potassium, Florastor, tramadol, Bactrim. PHYSICAL EXAMINATION: VITAL SIGNS: T-max 98.8, blood pressure 100/67, pulse 80, respirations 18, O2 sat (05:42). SKIN: The patient has the right ileal conduit in the abdomen. Peripheral IV access. No lymphadenopathy. HEENT: Ocular movements conjugate. NECK: Supple. LUNGS: Symmetric air entry. ABDOMEN: Soft without tenderness or distention. Pulses 1+ in dorsalis pedis. No joint inflammatory activity. Right hemiplegia. She is able to move the left side fairly well. NEUROLOGIC: Cognitive function appears to be intact. LABORATORY DATA: The white cell count is down from 25,000 to 14,000, hemoglobin 11, platelets 241, 79% neutrophils, 23% bands on admission. Sodium 140, creatinine 1.16 and 0.98. Troponin normal. Lactic acid 3.4 and 0.9. AST 43, ALT 38. Microbiology with pending urine culture. There is a culture from few days ago, which showed Citrobacter, Klebsiella, Proteus, and Enterococcus; all the 3 gram-negatives with a very broad susceptibility profile including the quinolones. Resistance was to Zosyn and to cefoxitin, ceftazidime, and ceftriaxone. There is an abdomen and pelvis CT from 09/23/2017 with large staghorn-type calculus in right renal pelvis extending to the right lower pole, inflammatory haziness around the proximal right ureter, some radiopaque material in the urinary bladder noticeable. ASSESSMENT: Multiple sclerosis with recurring nephrolithiasis, this time with a staghorn calculus and clinical findings consistent with invasive urinary tract infection. The patient was not able to have the percutaneous nephrostomy placed by Radiology and looks like Dr. Napoles is going to attempt cystoscopy with insufflation of the right pelvis to try to make it more accessible to the radiological intervention. At this point, we will switch her to levofloxacin since I do not think she truly had an allergic reaction to quinolones. Eventual transition to oral antimicrobial therapy for discharge planning. MTDD
[2017-10-05] MEDS: Sodium Chloride 0.9% 1,000 ML IV SCH (04:02)
[2017-10-05 05:15] LABS: #Eosinphils 0.2 thou/uL (0.0-0.7); #Lymphocytes 1.5 thou/uL (1.20-3.40); #Monocytes 0.8 thou/uL (0.11-0.59); #Neutrophils 6.1 thou/uL (1.40-6.50); %Basophils 0.4 % (0.0-1.0); %Eosinophils 1.9 % (0.0-10.0); %Lymphocytes 17.8 % (21.0-51.0); %Monocytes 9.6 % (0.0-10.0); %Neutrophils 70.3 % (42.0-75.0); Hemoglobin 11.8 g/dL (12.0-16.0); Mean Corpuscular HGB CONC 33.4 g/dL (32.0-36.0); Mean Corpuscular Volume 89.8 fl (81.0-99.0); Mean Platelet Volume 7.2 fL (7.4-10.4); Platelet Count 231 thou/uL (130-400); RBC Distribution Width 12.1 % (11.5-14.5); Red Blood Cell (RBC) Count 3.95 mill/uL (4.20-5.40); White Blood Cell (WBC) Count 8.6 thou/uL (4.8-10.8)
[2017-10-05 05:27] LABS: Anion Gap 10 mmol/L (10-20); BUN (Urea Nitrogen) 14 mg/dL (9.8-20.1); Calc. Creatinine Clearance 78 mL/min (70-130); Calcium 8.3 mg/dL (7.8-10.44); Carbon Dioxide 23 mmol/L (23-31); Chloride 109 mmol/L (98-107); Estimated GFR-MDRD 69; Glucose 78 mg/dL (80-115); Potassium 4.1 mmol/L (3.5-5.1); Sodium 138 mmol/L (136-145)
[2017-10-05] MEDS: Saccharomyces boulardii 250 MG CAP PO SCH (09:36)
[2017-10-05] MEDS: Potassium Chloride 20 MEQ TAB PO SCH (09:36)
[2017-10-05] MEDS: FLUoxetine HCl 20 MG CAP PO SCH (09:36)
[2017-10-05] MEDS: AMINOPYRIDINE PO SCH ×2 (09:37→14:17)
[2017-10-05] MEDS: Docusate 100 MG CAP PO SCH (09:39)
[2017-10-05] MEDS: Famotidine 20 MG TAB PO SCH (09:40)
[2017-10-05] MEDS: Enoxaparin Sodium 40 MG/0.4 ML SYRINGE SC SCH ×2 (09:40→09:50)
[2017-10-05 11:02] VITALS: BP 126/80; TEMP 98.7
--- NOTE | 2017-10-05 11:48 | PDOC.PN ---
- Subjective Encounter Start Date: 10/05/17 Encounter Start Time: 11:49 Patient seen and examined. Admitted for Sepsis 2/2 Staghorn Calculus. No complaints today. Feels much better. No acute events overnight. - Objective Resuscitation Status: Resuscitation Status DNR:Do Not Resuscitate Vital Signs & Weight: Vital Signs (12 hours) Temp Pulse Resp BP Pulse Ox 10/05/17 10:56 98.7 F 84 20 126/80 94 L 10/05/17 08:00 98.3 F 95 14 91 L 10/05/17 07:29 98.3 F 95 14 135/76 91 L Weight Weight 157 lb 6.4 oz I&O: 10/04/17 10/05/17 10/06/17 06:59 06:59 06:59 Intake Total 1230 1196 Output Total 200 2125 Balance 1030 -929 Result Diagrams: 10/05/17 04:07 10/05/17 04:07 Phys Exam - Physical Examination Constitutional: NAD HEENT: moist MMs, sclera anicteric Neck: supple, full ROM Respiratory: no wheezing, no rales, no rhonchi, clear to auscultation bilateral Cardiovascular: RRR, no significant murmur, no rub Gastrointestinal: soft Musculoskeletal: no edema, pulses present Neurological: non-focal Psychiatric: normal affect, A&O x 3 Skin: no rash, normal turgor Dx/Plan (1) HTN (hypertension) Code(s): I10 - ESSENTIAL (PRIMARY) HYPERTENSION Status: Chronic Qualifiers: Hypertension type: essential hypertension Qualified Code(s): I10 - Essential (primary) hypertension (2) Sepsis Code(s): A41.9 - SEPSIS, UNSPECIFIED ORGANISM Status: Resolved Qualifiers: Sepsis type: sepsis due to unspecified organism Qualified Code(s): A41.9 - Sepsis, unspecified organism (3) Hypokalemia Code(s): E87.6 - HYPOKALEMIA Status: Resolved (4) Staghorn renal calculus Code(s): N20.0 - CALCULUS OF KIDNEY Status: Chronic (5) Hemiplegia Code(s): G81.90 - HEMIPLEGIA, UNSPECIFIED AFFECTING UNSPECIFIED SIDE Status: Chronic Qualifiers: Hemiplegia type: flaccid Cerebrovascular disease type: other Hemiplegia laterality: right dominant side Comment: 2/2 multiple sclerosis (6) Multiple sclerosis Code(s): G35 - MULTIPLE SCLEROSIS Status: Chronic - Plan cont current plan of care, continue antibiotics, DVT proph w/lovenox Doing better on antibiotics- continue Cipro Likely discharge tomorrow Will follow up with Urology on Monday for cystoscopy with insufflation R pelvis. Review of Systems - Medications/Allergies Allergies/Adverse Reactions: Allergies Allergy/AdvReac Type Severity Reaction Status Date / Time levofloxacin [From Levaquin] Allergy Unknown Verified 10/04/17 00:05 Penicillins Allergy Verified 10/04/17 00:05 Medications: Current Medications Acetaminophen (Tylenol) 650 mg PO Q4H PRN PRN Reason: Headache/Fever or Pain Al Hydroxide/Mg Hydroxide (Maalox) 30 ml PO Q6H PRN PRN Reason: Heartburn or Indigestion Alprazolam (Xanax) 0.25 mg PO TID PRN PRN Reason: Anxiety Last Admin: 10/04/17 22:00 Dose: 0.25 mg Docusate Sodium (Colace) 100 mg PO BID [facility] Last Admin: 10/05/17 09:39 Dose: Not Given Enoxaparin Sodium (Lovenox) 40 mg SC 0900 [facility] Last Admin: 10/05/17 09:50 Dose: Not Given Famotidine (Pepcid) 20 mg PO BID [facility] Last Admin: 10/05/17 09:40 Dose: 20 mg Fluoxetine HCl (Prozac) 40 mg PO DAILY [facility] Last Admin: 10/05/17 09:36 Dose: 40 mg Guaifenesin/Dextromethorphan (Robitussin Dm) 15 ml PO Q4H PRN PRN Reason: Cough Sodium Chloride (Normal Saline 0.9%) 1,000 mls @ 100 mls/hr IV .Q10H [facility] Last Admin: 10/05/17 04:02 Dose: 1,000 mls Ciprofloxacin/Dextrose 400 mg/ (Device) 200 mls @ 200 mls/hr IVPB 08,1999 [facility] Last Admin: 10/05/17 09:39 Dose: 200 mls Mirabegron (Myrbetriq Er) 25 mg PO DAILY [facility] Last Admin: 10/05/17 09:35 Dose: 25 mg 4-Aminopyridine 0 each PO BID-AC [facility] Last Admin: 10/05/17 09:37 Dose: 1 each Glatiramer Acetate [ (Copaxone] 20 Mg) 0 each SC DAILY [facility] Last Admin: 10/05/17 09:41 Dose: 1 each Saccharomyces Boulardii (Florastor) 250 mg PO DAILY [facility] Last Admin: 10/05/17 09:36 Dose: 250 mg Sodium Chloride (Flush - Normal Saline) 10 ml IVF Q12HR [facility] Last Admin: 10/05/17 09:42 Dose: 10 ml Sodium Chloride (Flush - Normal Saline) 10 ml IVF PRN PRN PRN Reason: Saline Flush Tramadol HCl (Ultram) 50 mg PO Q6H PRN PRN Reason: Pain 4-6 Last Admin: 10/04/17 22:00 Dose: 50 mg
--- NOTE | 2017-10-05 13:18 | PRG ---
DATE OF SERVICE: 10/04/2017 SUBJECTIVE: Ms. Moreira is feeling better. She is still concerned about having any procedures done because of fear of exacerbation of her multiple sclerosis. PHYSICAL EXAMINATION: VITAL SIGNS: Normal. T-max 99.1. GENERAL: No change in neurological status, awake, alert, oriented. LUNGS: Clear. HEART: S1, S2, regular rate. ABDOMEN: Soft. LABORATORY DATA: White cell count 14.5, hemoglobin 11, platelets 241, 79% neutrophils. Creatinine 0 .98. The urine culture from 09/23/2017 with 4 different organisms retrieved as noted previously. Th e current urine culture thus far negative. Two sets of blood cultures thus far negative. DISCUSSION: Multiple sclerosis with recurrent nephrolithiasis staghorn calculus another invasive UTI . At this time, with 4 different organisms with seemingly good response to therapy. Our plan is swi tch her to a quinolone likely ciprofloxacin since I do not believe she true had a hypersensitive reac tion in the past. This will facilitate discharge planning. I think Dr. Napoles is going to try proce dure to allow the placement of percutaneous drainage by Radiology. I have explained to patient that the infections have been associated with exacerbation of multiple sclerosis, but not surgical procedu res and I would encourage her to proceed with the planned intervention.
--- NOTE | 2017-10-05 16:40 | DIS ---
DATE OF ADMISSION: 10/03/2017 DATE OF DISCHARGE: 10/05/2017 DISCHARGE DIAGNOSES: Urinary tract infection, staghorn calculus of the kidney, hypertension, hypokal emia, hemiplegia, and multiple sclerosis. HISTORY OF PRESENT ILLNESS/HOSPITAL COURSE: Ms. Nedra Moreira is a 61-year-old female with a past medical history of multiple sclerosis with severe disability and recurrent UTIs with chronic right st aghorn calculus, ileostomy, tonsillectomy, who has had multiple sclerosis for 20 years and follows up with for this condition. She presented to the hospital for urinary tract infection and se psis. She had been seen earlier for placement of percutaneous nephrostomy tube by IR today before pr esentation, but this could not be done due to anatomic positioning per IR report. When the patient w ent home, she said she felt diaphoretic and febrile and fatigued. Eventually, she called EMS and was brought to the emergency room. At the ER, she was found to have hematuria with leukocytosis of 25,0 00 and 23% bands. She was also tachycardic and tachypneic. Physical examination was, otherwise, unremarkable. Diagnosis of sepsis with urinary tract infection was made. Imaging showed her staghorn calculus on the right. She was reviewed by Infectious Disease , Dr. Espitia, and Urology. She was started on antibiotics and she responded to treatment. She is tra nsitioned to p.o. ciprofloxacin and is to follow up with urologist on Monday for cystoscopy with insu fflation of the right pelvis. She was afebrile and seemed back to her baseline at the time of discha rge. DISCHARGE MEDICATIONS: She will resume on her home medications, only addition was ciprofloxacin to b e taken twice a day. For full discharge medication list, refer to discharge packet. PHYSICAL EXAMINATION: VITAL SIGNS: Temperature 98.7, pulse rate 84, respiratory rate 20, oxygen sat uration 94% on room air, blood pressure 126/80. For full physical examination, refer to today's prog ress note. CONSULTATIONS: Infectious Disease and Urology. CONDITION AT DISCHARGE: Stable and improved. PROCEDURES: None. DIET: Heart healthy. CARE GOALS: Follow up with Urology on Monday for procedure. ACTIVITY: To resume as tolerated. Discharge time 65 minutes including chart review and documentation.
== END 2017-10-05 15:52 | disposition home or self-care (01) | DRG 872 ==
LOC: ERS 19:10 → T4-B 21:11
PROVIDERS: ADMIT Internal Medicine; ATTEND Internal Medicine
DX: A41.9 Sepsis, unspecified organism (principal); N12 Tubulo-interstitial nephritis, not specified as acute or chronic; G81.91 Hemiplegia, unspecified affecting right dominant side; G35 Multiple sclerosis; F41.9 Anxiety disorder, unspecified; Z79.899 Other long term (current) drug therapy; Z79.891 Long term (current) use of opiate analgesic; F32.9 Major depressive disorder, single episode, unspecified; E87.6 Hypokalemia; I10 Essential (primary) hypertension; N20.0 Calculus of kidney; Z88.1 Allergy status to other antibiotic agents; Z88.0 Allergy status to penicillin
CPT/HCPCS: 36415; 50430; 50434; 80048; 80053; 80306; 80307; 82553; 83605; 84484; 85025; 87040; 87077; 87086; 87186; 93005; 93970; 96360; 96361; A4216; J0692; J0744; J1580; J1650; J1956; J2250; J3010; J7050; Q0162

== ENCOUNTER → 2017-10-03 | Day surgery (SDC) | payer MEDICARE, MEDICAID ==
[2017-10-02 14:18] VITALS: BMI 26.5
[~2017-10-03] MED LIST: Cefepime 2 GM/10 ML 2 GM in Sodium Chloride 0.9% 100 ML IVPB SCH; Fentanyl 100 MCG/2 ML VIAL ONE; Iopamidol 300 61% 30 ML VIAL ONE; Midazolam HCl 2 mg/2 ml Vial ONE; Ondansetron ODT 4 MG TAB ONE
[2017-10-03 09:45] VITALS: TEMP 98.4
--- NOTE | 2017-10-03 14:55 | SPC ---
ANTEGRADE RIGHT PYELOGRAM AND ATTEMPTED RIGHT NEPHROSTOMY TUBE PLACEMENT: 10/03/2017 HISTORY: Staghorn right renal calculus. Placement of a nephrostomy tube/nephroureteral catheter on the right was requested prior to PCNL, in the operating room, in approximately six days. TOTAL FLUOROSCOPY TIME: 7.7 minutes TOTAL DOSE: 22,889 mGy per cm2 TECHNIQUE: The procedure, including the risks and the complications, was explained to the patient, and informed consent was obtained. IV antibiotics were administered, as requested by Dr. Napoles. The patient was placed on the angiography table in the prone position. An area overlying the staghor n right renal calculus was marked, and the area was meticulously prepped and draped in the usual ster ile fashion. Conscious sedation was performed with the intravenous administration of fentanyl and Ve rsed. The skin and subcutaneous tissues were infiltrated with buffered 1% Lidocaine for local anesthesia at the intended puncture site. Utilizing fluoroscopic guidance, a 22 gauge Chiba needle was advanced t o the level of the renal calculus. Contrast was injected. Contrast readily flows down the right ure ter and partially distends the renal calyces without evidence of hydronephrosis. A few mildly promin ent inferior pole calyces are present. Due to the overlying right 12th rib, the more inferior posterior calyces were unable to be adequately accessed for percutaneous nephrolithotomy. Additional posterior calyces were unable to be adequatel y opacified to obtain access. Findings were discussed with Dr. Napoles at this time. Given anatomica l considerations and difficulty in accessing a posterior calyx for an adequate access site, the proce dure was terminated, and the patient will return in approximately six days for placement of a retrogr rima right ureteral catheter, in an attempt to distend the posterior calyces of the right renal collec ting system, to obtain more optimum access for PCNL. The patient was transported to the radiology nurses' holding. The patient did have a few episodes of nausea, which did eventually resolve after the administration of Zofran. The patient's vital signs remained stable post procedure. The patient also remained afebrile with a small amount of blood ting ed urine. After monitoring the patient, the patient was discharged in stable condition, to follow up in six days. IMPRESSION: 1. Staghorn right renal calculus without significant hydronephrosis. 2. Inability to obtain adequate access prior to percutaneous nephrolithotomy due to anatomical issue s and inability to adequately distend the posterior calyces. POS: LAUREL
--- NOTE | 2017-10-04 09:50 | SPC ---
ANTEGRADE RIGHT PYELOGRAM AND ATTEMPTED RIGHT NEPHROSTOMY TUBE PLACEMENT: 10/03/2017 HISTORY: Staghorn right renal calculus. Placement of a nephrostomy tube/nephroureteral catheter on the right was requested prior to PCNL, in the operating room, in approximately six days. TOTAL FLUOROSCOPY TIME: 7.7 minutes TOTAL DOSE: 22,889 mGy per cm2 TECHNIQUE: The procedure, including the risks and the complications, was explained to the patient, and informed consent was obtained. IV antibiotics were administered, as requested by Dr. Napoles. The patient was placed on the angiography table in the prone position. An area overlying the staghor n right renal calculus was marked, and the area was meticulously prepped and draped in the usual ster ile fashion. Conscious sedation was performed with the intravenous administration of fentanyl and Ve rsed. The skin and subcutaneous tissues were infiltrated with buffered 1% Lidocaine for local anesthesia at the intended puncture site. Utilizing fluoroscopic guidance, a 22 gauge Chiba needle was advanced t o the level of the renal calculus. Contrast was injected. Contrast readily flows down the right ure ter and partially distends the renal calyces without evidence of hydronephrosis. A few mildly promin ent inferior pole calyces are present. Due to an overlying right 12th rib, the more inferior posterior calyces were unable to be adequately accessed for percutaneous nephrolithotomy. Additional posterior calyces were unable to be adequately opacified to obtain access. Findings were discussed with Dr. Napoles at this time. Given anatomical considerations and difficulty in accessing a posterior calyx for an adequate access site, the proced ure was terminated, and the patient will return in approximately six days for placement of a retrogra de right ureteral catheter, in an attempt to distend the posterior calyces of the right renal collect ing system, to obtain more optimum access for PCNL. The patient was transported to the radiology nurses' holding. The patient did have a few episodes of nausea, which did eventually resolve after the administration of Zofran. The patient's vital signs remained stable post procedure. The patient also remained afebrile with a small amount of blood ting ed urine. After monitoring the patient, the patient was discharged in stable condition, to follow up in six days. IMPRESSION: 1. Staghorn right renal calculus without significant hydronephrosis. 2. Inability to obtain adequate access prior to percutaneous nephrolithotomy due to anatomical issue s and inability to adequately distend the posterior calyces.
== END ==
LOC: SPEC 06:34
PROVIDERS: ATTEND Urology
PROC: 0TC03ZZ Extirpation of Matter from Right Kidney, Percutaneous Approach (ICD-10-PCS; principal; 2017-10-03)
DX: N20.0 Calculus of kidney (principal); Z79.82 Long term (current) use of aspirin; Z79.899 Other long term (current) drug therapy; Z88.0 Allergy status to penicillin; Z88.1 Allergy status to other antibiotic agents
CPT/HCPCS: 50430; 50434; J0692; J2250; J3010; J7050; Q0162

== ENCOUNTER 2017-10-09 07:10 | Day surgery (SDC) | payer MEDICARE, MEDICAID ==
[2017-10-06 10:00] VITALS: BMI 26.5
[2017-10-09] MEDS ORDERED: Fentanyl 100 MCG/2 ML VIAL ONE (07:17)
[2017-10-09] MEDS ORDERED: Midazolam HCl 2 mg/2 ml Vial ONE ×2 (07:17→07:49)
[2017-10-09] MEDS ORDERED: Iothalamate Meglumine 60% 50 ML VIAL FS ONE (07:17)
[2017-10-09] MEDS ORDERED: Vancomycin HCl 1 GM in Premix Bag 1 BAG IVPB SCH (07:30)
[2017-10-09] MEDS ORDERED: Iopamidol 370 76% 100 ML VIAL ONE (09:42)
[2017-10-09] MEDS ORDERED: Iopamidol 370 76% 50 ML VIAL FS ONE (09:57)
[2017-10-09] MEDS ORDERED: Iopamidol 0 ML ONE ×2 (10:04)
[2017-10-09] MEDS ORDERED: Ondansetron HCl/PF 4 MG/2 ML Vial ONE (10:42)
[2017-10-09] MEDS ORDERED: Glycopyrrolate 0.2 MG/ML 5 ML SYRINGE ONE (10:42)
[2017-10-09] MEDS ORDERED: Metoclopramide HCl 10 MG/2 ML VIAL ONE (10:42)
[2017-10-09] MEDS ORDERED: Dexamethasone 20 MG/5 ML VIAL ONE (10:42)
[2017-10-09] MEDS ORDERED: Lidocaine 1% PF 5 ML VIAL ONE (10:42)
[2017-10-09] MEDS ORDERED: PHENYLEPHRINE-NS 100 MCG/ML 10 ML SYRINGE ONE (10:42)
[2017-10-09] MEDS ORDERED: PROPOFOL 200 MG/20 ML VIAL ONE (10:42)
--- NOTE | 2017-10-09 12:45 | RAD ---
ANTEGRADE PYELOGRAM AND RIGHT NEPHROURETERAL CATHETER PLACEMENT: Date: 10-09-17 History: Staghorn right renal calculus. Technique: Procedure including risks and complications were explained to the patient and informed consent was ob tained. Prior to this examination, retrograde right ureteral catheter was placed by Dr. Napoles to dis tend the renal collecting system. Patient was then transferred to the operating room for placement of a nephroureteral catheter. Anesthesia was performed by the anesthesiology department. Patient was pl aced in the prone position. Utilizing fluoroscopic guidance, an inferior pole right renal singh was accessed and contrast injecti on confirms placement within the collecting system. However, a guidewire was unable to be manipulated distal to the calculus within the posterior singh inferior pole of the right kidney after two separa te attempts. Dr. Wang then attempted and accessed the midportion renal collecting system and contrast injection co nfirmed placement in the collecting system. The needle was then exchanged over the guidewire for a 6 Welsh Accustick sheath with inner dilator. Contrast injection confirmed placement in the collecting system. The Accustick sheath was exchanged over a .038 J guidewire for a nephroureteral catheter. Dr. Wang positioned the nephroureteral catheter within the distal right ureter. Contrast injection again conf irms placement in the ureter. The catheter was capped and sutured in place utilizing 2.0 Ethilon suture material. Dry sterile dress ing was placed. The patient tolerated the procedure without immediate complication. IMPRESSION: 1. Technically successful right nephroureteral catheter placement by Dr. Wang. 2. Large Staghorn right renal calculus with mild dilatation of the superior pole calices. POS: LAUREL
== END 2017-10-09 13:56 | disposition home or self-care (01) ==
LOC: SDC 07:10 → EDSTATUS 09:55 → SDC 13:56
PROVIDERS: ATTEND Urology
PROC: 0T9030Z Drainage of Right Kidney with Drainage Device, Percutaneous Approach (ICD-10-PCS; principal; 2017-10-09)
PROC: BT1D1ZZ Fluoroscopy of Right Kidney, Ureter and Bladder using Low Osmolar Contrast (ICD-10-PCS; 2017-10-09)
DX: N20.0 Calculus of kidney (principal); G35 Multiple sclerosis; Z87.440 Personal history of urinary (tract) infections; Z79.899 Other long term (current) drug therapy; Z88.0 Allergy status to penicillin; Z88.1 Allergy status to other antibiotic agents
CPT/HCPCS: 50430; 50432; 76001; C1758; J0744; J1100; J2001; J2250; J2405; J2704; J2765; J3010; J3370; Q9961

== ENCOUNTER 2017-10-16 08:44 | Inpatient (IN) | payer MEDICARE, MEDICAID ==
[2017-10-18] MEDS ORDERED: Iopamidol 300 61% 100 ML VIAL FS ONE (10:05)
[2017-10-18] MEDS ORDERED: Fentanyl 250 MCG/5 ML VIAL ONE (12:48)
[2017-10-18] MEDS ORDERED: Midazolam HCl 2 mg/2 ml Vial ONE (12:53)
[2017-10-18] MEDS ORDERED: Cefepime 2 GM/10 ML 2 GM in Sodium Chloride 0.9% 100 ML IVPB SCH (13:00)
[2017-10-18] MEDS ORDERED: Vancomycin HCl 1 GM in Premix Bag 1 BAG IVPB SCH (13:00)
[2017-10-18 13:28] LABS: INR-International Normal Ratio 1.1; PTT 30.3 SEC (22.9-36.1); Prothrombin Time 14.5 SEC (12.0-14.7)
[2017-10-18] MEDS ORDERED: Ondansetron HCl/PF 4 MG/2 ML Vial ONE (13:57)
[2017-10-18] MEDS ORDERED: PROPOFOL 200 MG/20 ML VIAL ONE (13:57)
[2017-10-18] MEDS ORDERED: Glycopyrrolate 0.2 MG/ML 5 ML SYRINGE ONE (13:57)
[2017-10-18] MEDS ORDERED: Lidocaine 1% PF 5 ML VIAL ONE (13:57)
[2017-10-18] MEDS ORDERED: ePHEDrine/0.9% NaCl/PF SYRINGE 50 mg/10 ml ONE (13:57)
[2017-10-18] MEDS ORDERED: Iothalamate Meglumine 60% 50 ML VIAL FS ONE (14:21)
[2017-10-18] MEDS ORDERED: Promethazine HCl 25 MG/ML VIAL IM PRN (15:16)
[2017-10-18] MEDS ORDERED: Ondansetron HCl/PF 4 MG/2 ML Vial IVP PRN ×2 (15:16→22:27)
[2017-10-18] MEDS ORDERED: Promethazine HCl 25 MG/ML VIAL SLOW IVP PRN (15:16)
[2017-10-18] MEDS ORDERED: HYDROcodone/Acetaminophen 5/325 mg Tablet PO PRN (16:02)
[2017-10-18] MEDS ORDERED: traMADol HCl 50 MG TAB PO PRN (16:12)
--- NOTE | 2017-10-18 16:27 | RAD ---
UPRIGHT FRONTAL CHEST: Date: 10-18-17 Comparison: 08-01-16 History: Evaluate chest following nephrostomy tube placement. FINDINGS: No pneumothorax, pleural fluid, focal consolidation or alveolar edema. Heart and mediastinal contours demonstrate mild prominence of the cardiac silhouette. No acute findings are noted. IMPRESSION: No acute findings. POS: LAUREL
[2017-10-18 16:47] LABS: Hemoglobin 12.4 g/dL (12.0-16.0)
[2017-10-18] MEDS ORDERED: CHOLESTYRAMINE PO PRN (17:00)
[2017-10-18] MEDS ORDERED: [UNRECOGNIZED DRUG - OTHER] PO PRN (17:00)
[2017-10-18 17:03] LABS: Anion Gap 12 mmol/L (10-20); BUN (Urea Nitrogen) 12 mg/dL (9.8-20.1); Calc. Creatinine Clearance 70 mL/min (70-130); Calcium 8.9 mg/dL (7.8-10.44); Carbon Dioxide 23 mmol/L (23-31); Chloride 108 mmol/L (98-107); Estimated GFR-MDRD 63; Glucose 89 mg/dL (80-115); Sodium 139 mmol/L (136-145)
[2017-10-18] MEDS ORDERED: Fentanyl 100 MCG/2 ML VIAL ONE (17:03)
[2017-10-18 17:40] VITALS: BMI 27.4
[2017-10-18] MEDS ORDERED: Cefepime 1 GM in Sodium Chloride 0.9% 100 ML IVPB SCH (18:00)
[2017-10-18] MEDS: D5 1/2 NS w/20 mEq KCL 1,000 ML IV SCH (22:25)
[2017-10-18] MEDS ORDERED: Mag-Al 1200 mg/1200 mg/30 ML UDCUP PO PRN (22:27)
[2017-10-18] MEDS ORDERED: Calcium Carbonate 500 MG ChewTAB PO PRN (22:27)
[2017-10-18] MEDS ORDERED: Senokot 8.6 MG TAB PO PRN (22:27)
[2017-10-18] MEDS ORDERED: Diabetic Tussin 200 MG/10 ML UDCUP PO PRN (22:27)
[2017-10-18] MEDS ORDERED: cloNIDine 0.1 MG TAB PO PRN (22:27)
[2017-10-18] MEDS ORDERED: hydrOXYzine Pamoate 25 mg Capsule PO PRN (22:27)
[2017-10-18] MEDS ORDERED: Benzonatate 100 MG CAP PO PRN (22:27)
[2017-10-18] MEDS ORDERED: Bisacodyl 5 MG TAB PO PRN (22:27)
[2017-10-18] MEDS ORDERED: hydrALAZINE 20 MG/ML VIAL SLOW IVP PRN (22:27)
[2017-10-18] MEDS ORDERED: Famotidine 20 MG TAB PO PRN (22:27)
[2017-10-18] MEDS ORDERED: Nitroglycerin 0.4 MG TAB (25 Tab Bottle) SL PRN (22:27)
[2017-10-18] MEDS: Vancomycin HCl 1 GM in Premix Bag 1 BAG IVPB SCH (23:18)
[2017-10-18] MEDS: ALPRAZolam 0.25 MG TAB PO PRN (23:18)
[2017-10-18] MEDS: Acetaminophen 500 MG TAB PO PRN (23:18)
--- NOTE | 2017-10-19 01:26 | OP ---
DATE OF PROCEDURE: 10/18/2017 PREOPERATIVE DIAGNOSIS: Large right renal stone. POSTOPERATIVE DIAGNOSIS: Large right renal stone. PROCEDURE PERFORMED: Right percutaneous ultrasonic and pneumatic nephrolithotripsy. SURGEON: Taqueria Napoles M.D. ANESTHETIC: General. ESTIMATED BLOOD LOSS: 200 mL for this part of the case. DRAINS PLACED: She has a 20-Stateless Alford catheter Councill tipped as a nephrostomy tube in about 3 m L in it. She has a 16 Stateless Alford catheter in her bladder. She also has a guidewire soft 0.038 stephanie dewire that goes all the way down into her bladder and exit out of the nephrostomy tube. OPERATIVE INDICATION: This is a 61-year-old white female with recurrent UTIs, as a large partial sta ghorn of the right kidney and lower pole collecting system. She had a nephrostomy tube placed last w . She is coming now for percutaneous nephrolithotripsy. She received cefepime and vancomycin [employer]. She has been typed and crossed for 2 units. OPERATIVE TECHNIQUE: After Dr. Garcia had established the tract dilatation and placement of the sheat h. We did a rigid nephroscopy using rigid nephroscope and video camera. We were not able to get int o and passed the singh that he had come in through, so he dilated a little further and then were able to get into the renal pelvis with a stone that was identified. We then used the combination ultraso vandana and pneumatic device and broke the stone up into fragments and used a grasping forceps to remove these and then used the ultrasonic wand for the small fragments to disintegrate them and sucked them up. She was left only with one stone in the right lower pole singh which was at an angle that could not be accessed from the location that a nephrostomy tube was placed. No other stone fragments were seen. At this point, we went ahead and through one of our guidewires that Dr. Garcia had established, passed a 5-Stateless Pollack catheter over it down, so it curled into the bladder, removed that stiff g uidewire injected contrast to confirm it was in the bladder and then placed a 0.038 guidewire through that, so it curled in the bladder and removed the Pollack catheter over this, we placed a 20 Stateless Councill tipped as a nephrostomy. This was placed into the region, where renal pelvis was and then t he sheath was backed out from this and we injected about 30 mL of half diluted contrast that showed i t was in good position. No contrast going down the ureter, but there was no extravasation. We went and secured the nephrostomy tube at this site and placed about 3 mL in the balloon. We then removed the sheath, removed the extra stiff guidewire leaving just the green Glidewire and the nephrostomy wa s drained. Dressings were then placed and the patient was returned to a supine position, she had bee n in the prone position and then awakened and extubated, oral gastric tube was removed. Alford cathet er was left indwelling. I would like to comment that at the start of the case, the patient was broug ht into the OR, left in the supine position on the transport bed, she was given a general anesthetic and oral intubation. An oral gastric tube was placed and the Alford catheter was placed. She was the n turned to the prone position with axillary rolls, head and neck being secured in good position by A nesthesia. Her both arms tucked into her side and pads on all of her extremities. She then had the existing nephrostomy tube prepped and then she was draped, for Dr. Garcia to come in to do this proced ure. At the end of the case, the patient was awakened, extubated, and she was taken by stretcher to the recovery room.
[2017-10-19] MEDS: Cefepime 1 GM in Sodium Chloride 0.9% 100 ML IVPB SCH ×2 (02:31→15:06)
[2017-10-19] MEDS: D5 1/2 NS w/20 mEq KCL 1,000 ML IV SCH ×3 (03:26→21:16)
--- NOTE | 2017-10-19 04:16 | PDOC.PN ---
- Subjective Encounter Start Date: 10/19/17 Encounter Start Time: 04:15 Subjective: seen and examined. chart reviewd. -: admitted by urology for recurrent UTI,staghorn calculus -: s/o Lithotripsy R. w Nephrostomy tube placement - Objective MAR Reviewed: Yes Vital Signs & Weight: Vital Signs (12 hours) Temp Pulse Resp BP Pulse Ox 10/19/17 00:00 100.7 F H 105 H 17 118/78 97 10/18/17 21:38 99.3 F 10/18/17 20:45 100.1 F H 99 14 98 10/18/17 20:00 100.1 F H 99 14 129/82 98 10/18/17 17:42 98.0 F 86 18 125/83 Weight Weight 150 lb Result Diagrams: 10/18/17 16:32 10/18/17 16:32 Additional Labs: Microbiology 10/04/17 01:40 Urine best catheter Urine Culture - Final Enterococcus species Citrobacter youngae Gram Negative Ghulam#2 10/03/17 22:09 Venous blood - Left Hand Blood Culture - Final NO GROWTH IN 5 DAYS 10/03/17 21:58 Venous blood - Left Arm Blood Culture - Final NO GROWTH IN 5 DAYS 09/26/17 10:30 Stool Stool Occult Blood (AMISH) - Final 09/23/17 16:58 Urine Suprapubic catheter Urine Culture - Final Citrobacter youngae Klebsiella pneumoniae ssp pneu Proteus mirabilis Enterococcus species labs reviewed Phys Exam - Physical Examination Constitutional: NAD HEENT: PERRLA, moist MMs, sclera anicteric, oral pharynx no lesions Neck: no nodes, no JVD, supple, full ROM Respiratory: no wheezing, no rales, no rhonchi, clear to auscultation bilateral Cardiovascular: RRR, no significant murmur, no rub Gastrointestinal: soft, non-tender, no distention, positive bowel sounds Musculoskeletal: no edema, pulses present R nephrostomy tube present Neurological: non-focal, normal sensation, moves all 4 limbs Psychiatric: normal affect, A&O x 3 Skin: no rash Dx/Plan (1) UTI (urinary tract infection) Status: Acute Qualifiers: Urinary tract infection type: acute cystitis Hematuria presence: without hematuria Qualified Code(s): N30.00 - Acute cystitis without hematuria (2) HTN (hypertension) Code(s): I10 - ESSENTIAL (PRIMARY) HYPERTENSION Status: Chronic Qualifiers: Hypertension type: essential hypertension Qualified Code(s): I10 - Essential (primary) hypertension (3) Multiple sclerosis Code(s): G35 - MULTIPLE SCLEROSIS Status: Chronic (4) Staghorn renal calculus Code(s): N20.0 - CALCULUS OF KIDNEY Status: Chronic Comment: s/p Lithotripsy 10/16/17 - Plan best catheter, continue antibiotics, out of bed/ambulate, DVT proph w/SCDs cont empiric ABx. obtain new urine Cx and blood Cx -: cont home meds. reviewed -: cont supportive care -: am labs. -: Suggest ID consult for resistant,recurrent UTI. * . Review of Systems - Review of Systems Constitutional: fever, sweats, weakness, malaise. negative: chills, other Respiratory: negative: Cough, Dry, Shortness of Breath, Hemoptysis, SOB with Excertion, Pleuritic Pain, Sputum, Wheezing Cardiovascular: negative: chest pain, palpitations, orthopnea, paroxysmal nocturnal dyspnea, edema, light headedness, other Gastrointestinal: negative: Nausea, Vomiting, Abdominal Pain, Diarrhea, Constipation, Melena, Hematochezia, Other Genitourinary: negative: Dysuria, Frequency, Incontinence, Hematuria, Retention , Other Musculoskeletal: negative: Neck Pain, Shoulder Pain, Arm Pain, Back Pain, Hand Pain, Leg Pain, Foot Pain, Other Skin: negative: Rash, Lesions, Francisco, Bruising, Other Neurological: negative: Weakness, Numbness, Incoordination, Change in Speech, Confusion, Seizures, Other - Medications/Allergies Allergies/Adverse Reactions: Allergies Allergy/AdvReac Type Severity Reaction Status Date / Time levofloxacin [From Levaquin] Allergy Unknown Verified 10/18/17 17:41 Penicillins Allergy Verified 10/18/17 17:41 Medications: Current Medications Acetaminophen (Tylenol) 500 mg PO Q4H PRN PRN Reason: BULLOCK/Fever > 101F/mild pain(1-3) Last Admin: 10/18/17 23:18 Dose: 500 mg Hydrocodone Bitart/Acetaminophen (Buckner 5/325) 2 tab PO Q6H PRN PRN Reason: Severe Pain (7-10) Al Hydroxide/Mg Hydroxide (Maalox) 15 ml PO Q4H PRN PRN Reason: Heartburn or Indigestion Alprazolam (Xanax) 0.25 mg PO TID PRN PRN Reason: Anxiety Last Admin: 10/18/17 23:18 Dose: 0.25 mg Benzonatate (Tessalon) 100 mg PO Q4H PRN PRN Reason: Cough Bisacodyl (Dulcolax) 10 mg PO DAILYPRN PRN PRN Reason: Constipation Calcium Carbonate (Tums) 1,000 mg PO Q4H PRN PRN Reason: Heartburn or Indigestion Clonidine (Catapres) 0.1 mg PO Q4H PRN PRN Reason: Systolic BP > 160 Famotidine (Pepcid) 20 mg PO BIDPRN PRN PRN Reason: Heartburn or Indigestion Fluoxetine HCl (Prozac) 40 mg PO QAM FOR[facility], [facility]1983 Guaifenesin (Robitussin Sf) 200 mg PO Q4H PRN PRN Reason: Cough Hydralazine HCl (Apresoline) 10 mg SLOW IVP Q4H PRN PRN Reason: Systolic BP > 170 Hydroxyzine Pamoate (Vistaril) 25 mg PO Q6H PRN PRN Reason: Itching Potassium Chloride/Dextrose/Sod Cl (D5 1/2 Ns W/20 Meq Kcl) 1,000 mls @ 100 mls /hr IV .Q10H FOR[facility], 1928–1983 Last Admin: 10/19/17 03:26 Dose: 1,000 mls Vancomycin HCl 1 gm/ Device 200 mls @ 133.333 mls/hr IVPB 1200,2359 [facility], [facility]1983 Last Admin: 10/18/17 23:18 Dose: 200 mls Cefepime HCl 1 gm/ Sodium (Chloride) 100 mls @ 200 mls/hr IVPB 0200,1400 [facility], [facility]1983 Last Admin: 10/19/17 02:31 Dose: 100 mls Loratadine (Claritin) 10 mg PO DAILY PRN PRN Reason: ALLERGIES Mirabegron (Myrbetriq Er) 25 mg PO QAM [facility], [facility]1983 Morphine Sulfate (Morphine) 2 mg IVP Q2H PRN PRN Reason: Moderate Pain (4-6) Nitroglycerin (Nitrostat) 0.4 mg SL Q5MIN PRN PRN Reason: Chest Pain Ondansetron HCl (Zofran) 4 mg IVP Q6H PRN PRN Reason: Nausea/Vomiting 4-Aminopyridine 10 (Mg Cap) 1 each PO BID-AC [facility], [facility] Glatiramer Acetate [ Copaxone] 20 Mg/Ml Injection 1 each SC DAILY KELTON Saccharomyces Boulardii (Florastor) 250 mg PO DAILY K[place]TON Senna (Senokot) 2 tab PO HSPRN PRN PRN Reason: Constipation Sodium Chloride (Flush - Normal Saline) 10 ml IVF PRN PRN PRN Reason: Saline Flush Tramadol HCl (Ultram) 50 mg PO ASDIR PRN PRN Reason: Pain
[2017-10-19 05:32] LABS: #Eosinphils 0.1 thou/uL (0.0-0.7); #Lymphocytes 0.8 thou/uL (1.20-3.40); #Monocytes 0.9 thou/uL (0.11-0.59); #Neutrophils 8.4 thou/uL (1.40-6.50); %Basophils 0.4 % (0.0-1.0); %Eosinophils 0.5 % (0.0-10.0); %Lymphocytes 8.1 % (21.0-51.0); %Monocytes 8.4 % (0.0-10.0); %Neutrophils 82.6 % (42.0-75.0); Hemoglobin 11.5 g/dL (12.0-16.0); Mean Corpuscular HGB CONC 32.3 g/dL (32.0-36.0); Mean Corpuscular Hemoglobin 29.2 pg (27.0-31.0); Mean Corpuscular Volume 90.5 fL (78.0-98.0); Mean Platelet Volume 6.7 fL (7.4-10.4); Platelet Count 345 thou/uL (130-400); RBC Distribution Width 11.9 % (11.5-14.5); Red Blood Cell (RBC) Count 3.94 mill/uL (4.20-5.40); White Blood Cell (WBC) Count 10.1 thou/uL (4.8-10.8)
[2017-10-19 05:41] LABS: Anion Gap 13 mmol/L (10-20); BUN (Urea Nitrogen) 11 mg/dL (9.8-20.1); Calc. Creatinine Clearance 67 mL/min (70-130); Calcium 8.4 mg/dL (7.8-10.44); Carbon Dioxide 24 mmol/L (23-31); Chloride 106 mmol/L (98-107); Estimated GFR-MDRD 60; Glucose 117 mg/dL (80-115); Potassium 3.9 mmol/L (3.5-5.1); Sodium 139 mmol/L (136-145)
[2017-10-19] MEDS ORDERED: AMINOPYRIDINE PO SCH ×2 (07:30)
[2017-10-19] MEDS ORDERED: Loratadine 10 MG TAB PO PRN (09:00)
[2017-10-19] MEDS ORDERED: Glatiramer Acetate [Copaxone] 20 MG SC SCH (09:00)
[2017-10-19] MEDS: FLUoxetine HCl 20 MG CAP PO SCH (09:14)
[2017-10-19] MEDS: Acetaminophen 500 MG TAB PO PRN (09:17)
[2017-10-19] MEDS: Saccharomyces boulardii 250 MG CAP PO SCH (09:18)
[2017-10-19] MEDS: AMINOPYRIDINE PO SCH ×2 (09:36→17:20)
[2017-10-19] MEDS: GLATIRAMER ACETATE 20 MG/ML SCH (09:52)
--- NOTE | 2017-10-19 09:56 | SPC ---
RIGHT NEPHROSTOMY TRACT DILATATION. DATE: 10/18/17. HISTORY: Staghorn right renal calculus. TECHNIQUE: Endotracheal anesthesia was performed by the anesthesiology department. The patient was in a prone p osition on the operating room table. The right nephroureteral catheter and surrounding area were met iculously prepped and draped in the usual sterile fashion. The catheter was cut, and contrast was in jected again confirming placement of the distal tip of the catheter in the distal ureter just proxima l to the urinary bladder. The catheter was exchanged over a 0.035 inch Glidewire for an 8 Irish tis hailey dilator. Contrast was again injected to confirm placement within the proximal ureter. The shama ter was exchanged over a 0.035 inch Amplatz guidewire for a taper-ended catheter over which a 10 Fren ch sheath was placed. A second 0.035 inch Amplatz guidewire was placed. Each of the guidewires were placed with the tip at the level of the distal ureter. A 30 Irish nephrostomy tract dilatation balloon was then placed, and a tract was dilated. The nephr ostomy tract dilatation balloon was then removed, and a 26 Irish dilator with sheath was then placed . The dilator was removed. Dr. Napoles placed a nephroscope to evaluate the calculus. However, the calculus was difficult to visualize. As a result, the 26 Irish dilator was again replaced, and the sheath was slightly advanced. The dilator was removed, and again Dr. Napoles placed a nephroscope. T he calculus was visualized. Laser nephrolithotomy, as well as the remainder of the procedure, was pe rformed by Dr. Napoles. That portion of the study will be dictated separately. IMPRESSION: 1. Technically successful right nephrostomy tract dilatation with placement of a 26 Irish sheath. 2. Staghorn right renal calculus. POS: [facility]
[2017-10-19] MEDS: ALPRAZolam 0.25 MG TAB PO PRN ×2 (10:00→21:16)
[2017-10-19] MEDS: Vancomycin HCl 1 GM in Premix Bag 1 BAG IVPB SCH (13:25)
[2017-10-19 23:40] LABS: Vancomycin, Trough 21.7 ug/mL
[2017-10-20] MEDS: Cefepime 1 GM in Sodium Chloride 0.9% 100 ML IVPB SCH ×2 (02:31→14:22)
[2017-10-20] MEDS: Vancomycin HCl 1 GM in Premix Bag 1 BAG IVPB SCH (03:53)
[2017-10-20] MEDS: Vancomycin HCl 750 MG in Sodium Chloride 0.9% 250 ML 250 ML IVPB SCH ×2 (04:32→16:18)
[2017-10-20] MEDS: AMINOPYRIDINE PO SCH (06:37)
[2017-10-20] MEDS: ALPRAZolam 0.25 MG TAB PO PRN (10:16)
--- NOTE | 2017-10-20 11:48 | SPC ---
RIGHT NEPHROSTOGRAM: Date: 10/20/17 HISTORY: Ureteral stone with obstruction. FINDINGS: Small amount of Isovue contrast was carefully instilled through the indwelling percutaneous nephrosto my catheter. There was opacification of nondilated right renal collecting system with immediate opaci fication of the nondilated right ureter. Peristalsis carried the contrast into the urinary bladder. I nitially, wire passed to the bladder. At the request of Dr. Napoles, the wire was removed. The patient tolerated the procedure well and was returned in unchanged condition. Fluoro Time: 0.4 minutes. IMPRESSION: Patent right ureter without evidence of obstruction or leak. POS: [facility]
[2017-10-20] MEDS: FLUoxetine HCl 20 MG CAP PO SCH (13:04)
[2017-10-20] MEDS: GLATIRAMER ACETATE 20 MG/ML SCH (13:04)
[2017-10-20] MEDS: Saccharomyces boulardii 250 MG CAP PO SCH (13:05)
[2017-10-20 15:54] VITALS: BP 119/76; TEMP 99.4
[2017-10-20] MEDS: D5 1/2 NS w/20 mEq KCL 1,000 ML IV SCH (16:17)
== END 2017-10-20 16:10 | disposition home or self-care (01) | DRG 660 ==
LOC: EDSTATUS 10-18 11:26 → SURG A 10-18 12:29 → SJJU 10-18 17:48
PROVIDERS: ADMIT Urology; ATTEND Urology
PROC: 0TC03ZZ Extirpation of Matter from Right Kidney, Percutaneous Approach (ICD-10-PCS; principal; 2017-10-18)
PROC: 0T9330Z Drainage of Right Kidney Pelvis with Drainage Device, Percutaneous Approach (ICD-10-PCS; 2017-10-18)
DX: N20.0 Calculus of kidney (principal); N30.00 Acute cystitis without hematuria; N31.9 Neuromuscular dysfunction of bladder, unspecified; I10 Essential (primary) hypertension; F41.9 Anxiety disorder, unspecified; G35 Multiple sclerosis; Z88.0 Allergy status to penicillin; Z88.1 Allergy status to other antibiotic agents; Z79.899 Other long term (current) drug therapy
CPT/HCPCS: 36415; 50395; 50431; 71045; 74485; 80048; 80202; 82365; 85014; 85018; 85025; 85610; 85730; 86850; 86900; 86901; 87040; 87086; 88300; C1758; C1769; J0692; J2001; J2250; J2405; J2704; J3010; J3370; J7050; Q9961

== ENCOUNTER 2017-11-15 07:09 | Day surgery (SDC) | payer MEDICARE, MEDICAID ==
[2017-11-14 11:51] VITALS: BMI 26.5
[2017-11-15 08:28] LABS: Hemoglobin 13.2 g/dL (12.0-16.0); Mean Corpuscular HGB CONC 31.9 g/dL (32.0-36.0); Mean Corpuscular Hemoglobin 28.7 pg (27.0-31.0); Mean Corpuscular Volume 90.1 fL (78.0-98.0); Mean Platelet Volume 6.8 fL (7.4-10.4); Platelet Count 310 thou/uL (130-400); RBC Distribution Width 12.9 % (11.5-14.5); Red Blood Cell (RBC) Count 4.58 mill/uL (4.20-5.40); White Blood Cell (WBC) Count 6.3 thou/uL (4.8-10.8)
[2017-11-15] MEDS ORDERED: Cefepime 2 GM in Sodium Chloride 0.9% 100 ML IVPB SCH (08:30)
[2017-11-15 08:43] LABS: Anion Gap 15 mmol/L (10-20); BUN (Urea Nitrogen) 23 mg/dL (9.8-20.1); Calc. Creatinine Clearance 70 mL/min (70-130); Calcium 9.3 mg/dL (7.8-10.44); Carbon Dioxide 23 mmol/L (23-31); Chloride 107 mmol/L (98-107); Estimated GFR-MDRD 63; Glucose 88 mg/dL (80-115); Potassium 3.8 mmol/L (3.5-5.1); Sodium 141 mmol/L (136-145)
[2017-11-15 08:45] LABS: Platelet Count 310 thou/uL (130-400)
[2017-11-15 08:54] LABS: Prothrombin Time 13.4 SEC (12.0-14.7)
[2017-11-15 08:59] LABS: PTT 29.5 SEC (22.9-36.1)
[2017-11-15] MEDS ORDERED: Midazolam HCl 2 mg/2 ml Vial ONE (09:04)
[2017-11-15] MEDS ORDERED: Fentanyl 100 MCG/2 ML VIAL ONE ×2 (09:10→10:46)
[2017-11-15] MEDS ORDERED: Iothalamate Meglumine 60% 50 ML VIAL FS ONE (09:10)
--- NOTE | 2017-11-15 10:08 | RAD ---
KUB: History: Right renal calculus. Comparison: 09-24-17 FINDINGS: The bowel gas pattern is nonobstructed. Surgical chain type sutures are seen in the right midabdomen. Staghorn type calculus seen on the previous examination not definitely visualized on this study alth ough there some slight radiopaque density in the lower pole region which could represent some residua l stone. The left renal outline is clear. IMPRESSION: Questionable small amount of residual calculus overlying the lower pole of the right kidney. Otherwis e unremarkable exam. POS: [facility]
--- NOTE | 2017-11-15 12:58 | OP ---
DATE OF PROCEDURE: 11/15/2017 PREOPERATIVE DIAGNOSIS: Right renal stone. POSTOPERATIVE DIAGNOSIS: Right renal stone. PROCEDURE: Right ESWL. No stent. SURGEON: Taqueria Napoles M.D. ANESTHESIA: General. ESTIMATED BLOOD LOSS: Not recorded. FINDINGS: There was an 8 mm right lower pole stone that was treated with 2500 shocks at maximum kV l evel of 4 and did appear to fragment well. A stent was not placed. OPERATIVE TECHNIQUE: After obtaining written and verbal consent from the patient after receiving van comycin and cefepime and after documenting normal preoperative blood work and platelet function assay and being sure we could see the stone on her preoperative KUB, she was taken to the operating suite. She was placed in the supine position on the treatment table. PlexiPulses were placed on her lower extremities and turned on. She was given a general anesthetic, oral intubation. She was coupled wi th the lithotripter unit. The stone was placed in treatment focal point. Shockwave therapy was comm enced at a very low kV and a slow rate. After a couple 100 shocks, a 5 minute pause was given. The kV was then slowly increased to 4 and we used fluoroscopy intermittently to document stone fragmentat ion and reposition as necessary. It did appear the stone did fragment. Because it was a lower pole stone we did not place a stent. At the end of 2500 shocks she was awakened, extubated, and taken by stretcher to the recovery room.
[2017-11-15] MEDS ORDERED: Ondansetron HCl/PF 4 MG/2 ML Vial ONE (14:09)
[2017-11-15] MEDS ORDERED: Dexamethasone 20 MG/5 ML VIAL ONE (14:09)
[2017-11-15] MEDS ORDERED: PROPOFOL 200 MG/20 ML VIAL ONE (14:09)
[2017-11-15] MEDS ORDERED: PHENYLEPHRINE-NS 100 MCG/ML 10 ML SYRINGE ONE (14:09)
== END 2017-11-15 12:25 | disposition home or self-care (01) ==
LOC: SDC 07:09
PROVIDERS: ATTEND Urology
PROC: 0TF3XZZ Fragmentation in Right Kidney Pelvis, External Approach (ICD-10-PCS; principal; 2017-11-15)
DX: N20.0 Calculus of kidney (principal); F41.9 Anxiety disorder, unspecified; G35 Multiple sclerosis; N18.9 Chronic kidney disease, unspecified; Z88.0 Allergy status to penicillin; Z88.1 Allergy status to other antibiotic agents; Z79.899 Other long term (current) drug therapy
CPT/HCPCS: 74018; 80048; 85027; 85576; 85610; 85730; 96374; J0692; J1100; J2250; J2405; J2704; J3010; J3370; J7050; Q9961

== ENCOUNTER 2019-02-13 06:05 | Day surgery (SDC) | payer MEDICARE, MEDICAID ==
[2019-02-12 10:29] VITALS: BMI 28.3
[2019-02-13] MEDS ORDERED: Iothalamate Meglumine 60% 50 ML VIAL FS ONE (06:46)
[2019-02-13 07:00] LABS: #Basophils 0.1 thou/uL (0.0-0.2); #Eosinphils 0.5 thou/uL (0.0-0.7); #Monocytes 0.8 thou/uL (0.11-0.59); #Neutrophils 5.4 thou/uL (1.40-6.50); %Basophils 0.7 % (0.0-1.0); %Eosinophils 5.4 % (0.0-10.0); %Lymphocytes 22.6 % (21.0-51.0); %Neutrophils 62.4 % (42.0-75.0); Hemoglobin 14.4 g/dL (12.0-16.0); Mean Corpuscular HGB CONC 33.3 g/dL (32.0-36.0); Mean Corpuscular Hemoglobin 29.9 pg (27.0-31.0); Mean Corpuscular Volume 89.7 fL (78.0-98.0); Mean Platelet Volume 6.6 fL (7.4-10.4); Platelet Count 332 thou/uL (130-400); RBC Distribution Width 12.2 % (11.5-14.5); Red Blood Cell (RBC) Count 4.83 mill/uL (4.20-5.40); White Blood Cell (WBC) Count 8.7 thou/uL (4.8-10.8)
[2019-02-13 07:06] LABS: Platelet Count 341 thou/uL (130-400)
[2019-02-13] MEDS ORDERED: cefTRIAXone\\ROCEPHIN 2 GM VIAL ONE (07:06)
[2019-02-13] MEDS ORDERED: Sodium Chloride 0.9% 100 ML ONE (07:06)
[2019-02-13 07:16] LABS: EPI 111 SEC (67-199); Prothrombin Time 13.1 SEC (12.0-14.7)
[2019-02-13 07:17] LABS: PTT 28.5 SEC (22.9-36.1)
[2019-02-13] MEDS ORDERED: Midazolam HCl 2 mg/2 ml Vial ONE (07:32)
[2019-02-13] MEDS ORDERED: Fentanyl 100 MCG/2 ML VIAL ONE (07:32)
[2019-02-13 07:57] LABS: Anion Gap 13 mmol/L (10-20); BUN (Urea Nitrogen) 21 mg/dL (9.8-20.1); Calc. Creatinine Clearance 76 mL/min (70-130); Calcium 8.8 mg/dL (7.8-10.44); Carbon Dioxide 24 mmol/L (23-31); Chloride 107 mmol/L (98-107); Estimated GFR-MDRD 69; Glucose 85 mg/dL (80-115); Potassium 3.4 mmol/L (3.5-5.1); Sodium 141 mmol/L (136-145)
--- NOTE | 2019-02-13 10:14 | RAD ---
KUB: HISTORY: Renal calculus. COMPARISON: 01/08/2019 FINDINGS: Postop changes and surgical sutures in the right mid abdomen are again seen. There are changes of a p revious cholecystectomy years ago. Calcific densities in the projection of the right kidney are stable. Left-sided renal calculi are aga in noted. The bowel gas pattern is unremarkable. There are degenerative changes with dextroscoliosis of the lum bar spine. Pelvic phleboliths are again seen. IMPRESSION: Stable examination. POS: [facility]
--- NOTE | 2019-02-13 10:58 | OP ---
DATE OF PROCEDURE: 02/13/2019 PREOPERATIVE DIAGNOSIS: Right renal stones. POSTOPERATIVE DIAGNOSIS: Right renal stones. PROCEDURE PERFORMED: Right extracorporeal shock wave lithotripsy. ANESTHETIC: General. ESTIMATED BLOOD LOSS: Not recorded. FINDINGS: She had a number of small little stones in the renal pelvic region and in the upper pole region that were treated with a total of 2500 shocks at level of 4, they all appeared to fragment well. Stent was not placed. DESCRIPTION OF PROCEDURE: Obtained written and verbal consent from the patient and after documenting normal preoperative blood work, platelet function assay, and being sure we could see the stones in the KUB, she was taken to the operating suite. She was placed in a supine position on the treatment table. PlexiPulses were placed on the lower extremities and turned on. She was given a general anesthetic and oral obturator intubation. She was coupled to the lithotripsy unit and the stones were placed in treatment focal point. Shockwave therapy was commenced at a very low kV and at a rate of 60. After about a 200 to 300 shocks, she had a 5-minute pause and then, the rate was kept at 60 and the kV was placed up to 4. She was repositioned as necessary using fluoroscopy to guide us to treat all the stone fragments we could see. After 2500 shocks, the procedure was terminated. Stent was not placed. She had received 2 g of Rocephin at the start of the case. She was awakened, extubated, and taken by stretcher to recovery room. Job ID: [id number]
== END 2019-02-13 11:04 | disposition home or self-care (01) ==
LOC: SDC 06:05
PROVIDERS: ATTEND Urology
PROC: 0TF3XZZ Fragmentation in Right Kidney Pelvis, External Approach (ICD-10-PCS; principal; 2019-02-13)
DX: N20.0 Calculus of kidney (principal); Z79.899 Other long term (current) drug therapy; Z88.0 Allergy status to penicillin; Z88.1 Allergy status to other antibiotic agents
CPT/HCPCS: 36415; 74018; 80048; 85025; 85576; 85610; 85730; J0696; J2250; J3010; J3490

== ENCOUNTER 2019-02-18 18:35 | Emergency (ER) | payer MEDICARE, MEDICAID ==
[~2019-02-18 18:35] MED LIST changes: -Cefepime 2 GM/10 ML 2 GM in Sodium Chloride 0.9% 100 ML IVPB SCH; -Fentanyl 100 MCG/2 ML VIAL ONE; +ISOVUE-370 76%-LOCM 1 ML ONE; -Iopamidol 300 61% 30 ML VIAL ONE; -Midazolam HCl 2 mg/2 ml Vial ONE; -Ondansetron ODT 4 MG TAB ONE
[2019-02-18 20:02] LABS: #Eosinphils 0.1 thou/uL (0.0-0.7); #Lymphocytes 0.7 thou/uL (1.20-3.40); #Monocytes 0.6 thou/uL (0.11-0.59); #Neutrophils 10.8 thou/uL (1.40-6.50); %Eosinophils 0.6 % (0.0-10.0); %Monocytes 4.5 % (0.0-10.0); %Neutrophils 88.8 % (42.0-75.0); Hemoglobin 16.4 g/dL (12.0-16.0); Mean Corpuscular Hemoglobin 30.4 pg (27.0-31.0); Mean Corpuscular Volume 89.6 fL (78.0-98.0); Mean Platelet Volume 6.4 fL (7.4-10.4); Platelet Count 384 thou/uL (130-400); RBC Distribution Width 12.3 % (11.5-14.5); White Blood Cell (WBC) Count 12.2 thou/uL (4.8-10.8)
[2019-02-18] MEDS ORDERED: Promethazine HCl 25 MG/ML VIAL ONE (20:06)
[2019-02-18 20:17] LABS: ALT (SGPT) 16 U/L (8-55); AST (SGOT) 15 U/L (5-34); Albumin 4.5 g/dL (3.4-4.8); Alkaline Phosphatase 99 U/L (40-110); Anion Gap 18 mmol/L (10-20); BUN (Urea Nitrogen) 28 mg/dL (9.8-20.1); Bilirubin, Total 0.8 mg/dL (0.2-1.2); Calc. Creatinine Clearance 0 mL/min (70-130); Calcium 9.5 mg/dL (7.8-10.44); Carbon Dioxide 21 mmol/L (23-31); Chloride 105 mmol/L (98-107); Estimated GFR-MDRD 56; Globulin 3.1 g/dL (2.4-3.5); Glucose 104 mg/dL (80-115); Lipase 19 U/L (8-78); Protein, Total 7.6 g/dL (6.0-8.3); Sodium 140 mmol/L (136-145)
--- NOTE | 2019-02-18 20:57 | CT ---
CT ABDOMEN AND PELVIS WITH IV CONTRAST: History: Abdominal pain, vomiting. FINDINGS: Tiny nonspecific subpleural nodule at the right lung base. Small hiatal hernia. Gallbladder is surgic ally absent. Small low density lesion of the left adrenal gland is stable. Most of the Staghorn calcu loreto of the right kidney from previous exams has been removed. Minimal residual calcification within a nondilated singh at the inferior pole of the right kidney, estimated at 0.5 cm greatest diameter. Minimal residual calcific stones in the dependent portion of the urinary bladder lumen. Right lower quadrant ostomy remains in place. Post-operative changes of the colon and urinary bladder . Prominent degenerative changes lumbar spine. IMPRESSION: 1. No evidence of bowel obstruction. 2. Near complete removal of the Staghorn calculus right kidney. Minimal right renal calcifications an d urinary bladder calcifications remain. No evidence of urinary tract obstruction. 3. Post-operative changes and other chronic type findings are stable. POS: [facility]
[2019-02-18 21:59] LABS: Bilirubin Negative (Negative); Blood, Urine Large (Negative); Glucose, Urine (Dipstick) Negative (Negative); Leukocyte Large (Negative); Nitrite Negative (Negative); Protein, Urine (Dipstick) Negative (Neg-Trace); Urobilinogen 0.2 mg/dL (Less than 2)
[2019-02-18 22:21] LABS: Clarity Turbid (Clear)
[2019-02-18 22:22] LABS: WBC/HPF Greater than 50 HPF (0-3)
[2019-02-18 22:23] LABS: Bacteria/HPF 4+ HPF (None Seen)
[2019-02-18] MEDS ORDERED: cefTRIAXone\\ROCEPHIN 1 GM VIAL ONE (22:48)
== END 2019-02-19 00:09 | disposition home or self-care (01) ==
LOC: ERS 18:35
DX: N39.0 Urinary tract infection, site not specified (principal); E86.0 Dehydration; F41.9 Anxiety disorder, unspecified; F32.9 Major depressive disorder, single episode, unspecified; Z79.82 Long term (current) use of aspirin
CPT/HCPCS: 36415; 74177; 80053; 81003; 81015; 83690; 85025; 96365; 96366; 96367; J0696; J2550; Q9966

== ENCOUNTER 2019-10-06 18:19 | Emergency (ER) | payer MEDICARE, MEDICAID ==
[2019-10-06] MEDS ORDERED: Acetaminophen 500 MG TAB ONE (18:56)
[2019-10-06] MEDS ORDERED: Vancomycin 1 GM/200 ML BAG ONE (18:56)
[2019-10-06] MEDS ORDERED: cefTRIAXone\\ROCEPHIN 2 GM VIAL ONE (18:56)
[2019-10-06] MEDS ORDERED: Ondansetron PF 4 MG/2 ML Vial ONE (18:56)
[2019-10-06 19:08] LABS: #Lymphocytes 1.1 thou/uL (1.20-3.40); #Monocytes 1.3 thou/uL (0.11-0.59); #Neutrophils 11.6 thou/uL (1.40-6.50); %Basophils 0.3 % (0.0-1.0); %Eosinophils 0.2 % (0.0-10.0); %Lymphocytes 7.5 % (21.0-51.0); %Monocytes 8.9 % (0.0-10.0); Mean Corpuscular HGB CONC 34.8 g/dL (32.0-36.0); Mean Corpuscular Hemoglobin 31.4 pg (27.0-31.0); Mean Corpuscular Volume 90.3 fL (78.0-98.0); Mean Platelet Volume 7.3 fL (7.4-10.4); Platelet Count 336 thou/uL (130-400); RBC Distribution Width 12.1 % (11.5-14.5); White Blood Cell (WBC) Count 13.9 thou/uL (4.8-10.8)
--- NOTE | 2019-10-06 19:08 | RAD ---
RADIOGRAPH CHEST 1 VIEW: DATE: 10/06/2019 HISTORY: 63-year-old female with fever FINDINGS: There are no airspace densities, pulmonary edema, pneumothorax, or cardiomegaly. The lateral costophr enic angles are sharp. IMPRESSION: No acute cardiopulmonary findings.
[2019-10-06 19:28] LABS: ALT (SGPT) 15 U/L (8-55); AST (SGOT) 17 U/L (5-34); Alkaline Phosphatase 92 U/L (40-110); Anion Gap 14 mmol/L (10-20); BUN (Urea Nitrogen) 17 mg/dL (9.8-20.1); Bilirubin, Total 0.7 mg/dL (0.2-1.2); CK (CPK) 57 U/L (29-168); Calc. Creatinine Clearance 0 mL/min (70-130); Calcium 8.8 mg/dL (7.8-10.44); Carbon Dioxide 20 mmol/L (23-31); Chloride 106 mmol/L (98-107); Estimated GFR-MDRD 55; Glucose 113 mg/dL (80-115); Potassium 3.1 mmol/L (3.5-5.1); Sodium 137 mmol/L (136-145)
[2019-10-06 19:44] LABS: Bilirubin Negative (Negative); Blood, Urine Trace (Negative); Clarity Clear (Clear); Glucose, Urine (Dipstick) Normal (Negative); Leukocyte 250 Leu/uL (Negative); Nitrite 2+ (Negative); Protein, Urine (Dipstick) Negative (Neg-Trace); RBC/HPF 0-3 HPF (0-3); Squamous Epithelial 0-3 HPF (0-3); Urobilinogen Normal mg/dL (Less than 2)
[2019-10-06 19:51] LABS: Bacteria/HPF 3+ HPF (None Seen)
--- NOTE | 2019-10-12 11:01 | EKG ---
Test Reason : Blood Pressure : / mmHG Vent. Rate : 103 BPM Atrial Rate : 103 BPM P-R Int : 156 ms QRS Dur : 108 ms QT Int : 400 ms P-R-T Axes : 052 -24 066 degrees QTc Int : 524 ms Sinus tachycardia Possible Left atrial enlargement Septal infarct , age undetermined Lateral infarct , age undetermined Abnormal ECG Confirmed by ALEXANDRA SULTANA DO ([id number]), editorial writer PARESH DIGGS ([id number]) on 10/12/2019 11:01:29 AM Referred By: Confirmed By:ALEXANDRA SULTANA DO
== END 2019-10-06 21:18 | disposition home or self-care (01) ==
LOC: ERS 18:19
DX: N30.00 Acute cystitis without hematuria (principal); F41.9 Anxiety disorder, unspecified; F32.9 Major depressive disorder, single episode, unspecified; G35 Multiple sclerosis; Z79.82 Long term (current) use of aspirin; Z79.899 Other long term (current) drug therapy
CPT/HCPCS: 36415; 71045; 80053; 81003; 81015; 82550; 83605; 85025; 87040; 87077; 87086; 87186; 93005; 96361; 96365; 96366; 96367; 96375; J0696; J2405; J3370

== ENCOUNTER 2019-10-09 16:23 | Emergency (ER) | payer MEDICARE, OTHER ==
[2019-10-09] MEDS ORDERED: cefTRIAXone\\ROCEPHIN 2 GM VIAL ONE (17:22)
[2019-10-09 18:15] LABS: #Eosinphils 0.2 thou/uL (0.0-0.7); #Lymphocytes 1.7 thou/uL (1.20-3.40); #Monocytes 1.2 thou/uL (0.11-0.59); #Neutrophils 6.5 thou/uL (1.40-6.50); %Basophils 0.5 % (0.0-1.0); %Eosinophils 1.8 % (0.0-10.0); %Lymphocytes 17.5 % (21.0-51.0); %Monocytes 12.4 % (0.0-10.0); %Neutrophils 67.9 % (42.0-75.0); Hemoglobin 14.2 g/dL (12.0-16.0); Mean Corpuscular HGB CONC 33.4 g/dL (32.0-36.0); Mean Corpuscular Hemoglobin 30.6 pg (27.0-31.0); Mean Corpuscular Volume 91.6 fL (78.0-98.0); Mean Platelet Volume 7.1 fL (7.4-10.4); Platelet Count 302 thou/uL (130-400); Red Blood Cell (RBC) Count 4.65 mill/uL (4.20-5.40); White Blood Cell (WBC) Count 9.5 thou/uL (4.8-10.8)
[2019-10-09 18:49] LABS: ALT (SGPT) 24 U/L (8-55); AST (SGOT) 19 U/L (5-34); Albumin 3.8 g/dL (3.4-4.8); Alkaline Phosphatase 91 U/L (40-110); Anion Gap 16 mmol/L (10-20); BUN (Urea Nitrogen) 20 mg/dL (9.8-20.1); Bilirubin, Total 0.2 mg/dL (0.2-1.2); Calc. Creatinine Clearance 0 mL/min (70-130); Calcium 8.9 mg/dL (7.8-10.44); Carbon Dioxide 17 mmol/L (23-31); Chloride 109 mmol/L (98-107); Estimated GFR-MDRD 53; Globulin 2.5 g/dL (2.4-3.5); Glucose 90 mg/dL (80-115); Lipase 26 U/L (8-78); Potassium 3.2 mmol/L (3.5-5.1); Protein, Total 6.3 g/dL (6.0-8.3); Sodium 139 mmol/L (136-145)
== END 2019-10-09 19:50 | disposition home or self-care (01) ==
LOC: ERS 16:23
DX: R11.2 Nausea with vomiting, unspecified (principal); G35 Multiple sclerosis; F41.9 Anxiety disorder, unspecified; F32.9 Major depressive disorder, single episode, unspecified; Z79.899 Other long term (current) drug therapy; Z79.84 Long term (current) use of oral hypoglycemic drugs; Z79.82 Long term (current) use of aspirin
CPT/HCPCS: 36415; 80053; 83690; 84484; 85025; 93005; 96365; J0696

== ENCOUNTER 2020-01-20 17:43 | Inpatient (IN) | payer MEDICARE, MEDICAID, OTHER ==
[2020-01-20 18:26] LABS: #Basophils 0.1 thou/uL (0.0-0.2); #Lymphocytes 0.8 thou/uL (1.20-3.40); #Monocytes 1.2 thou/uL (0.11-0.59); #Neutrophils 9.7 thou/uL (1.40-6.50); %Basophils 0.5 % (0.0-1.0); %Eosinophils 0.4 % (0.0-10.0); %Monocytes 9.8 % (0.0-10.0); %Neutrophils 82.3 % (42.0-75.0); Hemoglobin 13.2 g/dL (12.0-16.0); Mean Corpuscular Hemoglobin 29.8 pg (27.0-31.0); Mean Corpuscular Volume 90.2 fL (78.0-98.0); Mean Platelet Volume 7.3 fL (7.4-10.4); Platelet Count 344 thou/uL (130-400); RBC Distribution Width 12.1 % (11.5-14.5); Red Blood Cell (RBC) Count 4.43 mill/uL (4.20-5.40); White Blood Cell (WBC) Count 11.8 thou/uL (4.8-10.8)
[2020-01-20] MEDS ORDERED: Vancomycin 1 GM/200 ML BAG ONE (18:27)
[2020-01-20 18:32] LABS: Bacteria/HPF 2+ HPF (None Seen); Bilirubin Negative (Negative); Blood, Urine 1+ (Negative); Clarity Turbid (Clear); Glucose, Urine (Dipstick) Normal (Negative); Ketone, Urine Negative (Negative); Leukocyte 500 Leu/uL (Negative); Nitrite 2+ (Negative); Protein, Urine (Dipstick) 20 mg/dL (Neg-Trace); Specific Gravity, Urine 1.009 (1.002-1.036); Urobilinogen Normal mg/dL (Less than 2); WBC/HPF Greater than 50 HPF (0-3)
[2020-01-20] MEDS ORDERED: ADMIXTURE FEE IVPB SCH (18:45)
[2020-01-20] MEDS ORDERED: CLINDAMYCIN IVPB SCH (18:45)
[2020-01-20] MEDS ORDERED: D5W IVPB SCH (18:45)
[2020-01-20 18:50] LABS: ALT (SGPT) 11 U/L (8-55); AST (SGOT) 11 U/L (5-34); Albumin 3.5 g/dL (3.4-4.8); Alkaline Phosphatase 84 U/L (40-110); Anion Gap 15 mmol/L (10-20); BUN (Urea Nitrogen) 17 mg/dL (9.8-20.1); Bilirubin, Total 0.7 mg/dL (0.2-1.2); Calc. Creatinine Clearance 0 mL/min (70-130); Calcium 8.8 mg/dL (7.8-10.44); Carbon Dioxide 22 mmol/L (23-31); Chloride 104 mmol/L (98-107); Estimated GFR-MDRD 58; Glucose 105 mg/dL (80-115); Potassium 3.3 mmol/L (3.5-5.1); Protein, Total 6.5 g/dL (6.0-8.3); Sodium 138 mmol/L (136-145)
[2020-01-20] MEDS ORDERED: Ondansetron ODT 4 MG TAB SL PRN (21:30)
[2020-01-20] MEDS ORDERED: Ondansetron PF 4 MG/2 ML Vial IVP PRN ×2 (21:30→22:14)
[2020-01-20] MEDS ORDERED: Sodium Chloride 0.9% 1,000 ML IV SCH (21:30)
[2020-01-20 21:49] VITALS: BMI 25.7
[2020-01-20] MEDS ORDERED: Labetalol HCl 100 MG/20 ML VIAL SLOW IVP PRN (22:14)
[2020-01-20] MEDS ORDERED: Ondansetron ODT 4 MG TAB PO PRN (22:14)
[2020-01-20] MEDS ORDERED: Electrolyte Replacement Protoc 1 EACH EACH FS PRN (22:33)
[2020-01-20] MEDS: Sodium Chloride 0.9% 1,000 ML IV SCH (22:40)
[2020-01-20] MEDS: cefTRIAXone\\ROCEPHIN 2 GM in Sodium Chloride 0.9% 100 ML IVPB SCH (22:41)
[2020-01-20] MEDS ORDERED: Potassium Chloride 20 MEQ TAB PO SCH (22:45)
[2020-01-21] MEDS ORDERED: Baclofen 10 MG TAB PO SCH (00:15)
--- NOTE | 2020-01-21 00:53 | HP ---
PRIMARY CARE PROVIDER: Nunu Stroud, nurse practitioner. CHIEF COMPLAINT: Fever, chills, and general malaise. HISTORY OF PRESENT ILLNESS: This is a 64-year-old female, who presents to [facility] Emergency Department with approximately 1- to 2-day history of fever up to 102.5 degrees Fahrenheit with associated chills and shaking. The patient admits to feeling dehydrated and unable to pick and shovel man objects at home due to the shaking and weakness. The patient's history is significant for advanced multiple sclerosis. Nonambulatory at baseline, requiring 2 care providers during the day as well as receiving home visits by her primary care provider. The patient is status post urostomy placement with frequent and recurrent urinary tract infections. The patient denies chronic or daily use of prophylactic antibiotics and states overall her chronic medication regimen has not changed. The patient had associated nausea and vomiting, but no diarrhea. The patient states she has undergone multiple procedures for lithotripsy due to multiple renal stones as well as large right staghorn calculus. The patient has been admitted to the hospital for numerous episodes of sepsis. No chest pain, shortness of breath, or abdominal pain. In the emergency room, the patient underwent general evaluation with urinalysis suspicious for infectious process. The patient received IV clindamycin and vancomycin in addition to intravenous normal saline due to concern for sepsis. PAST MEDICAL HISTORY: 1. Multiple sclerosis, nonambulatory at baseline. 2. Renal lithiasis with large right staghorn calculus. 3. Depression. 4. Recurrent urinary tract infections. PAST SURGICAL HISTORY: 1. Status post cholecystectomy. 2. Status post ileostomy. 3. Status post tonsillectomy. 4. Multiple urologic procedures with lithotripsy. CURRENT MEDICATIONS: 1. Copaxone 20 mg subcutaneously daily. 2. Tramadol 50 mg p.o. q.6 hours p.r.n. 3. Alprazolam 0.25 mg p.o. t.i.d. p.r.n. 4. Probiotics daily. 5. Myrbetriq 25 mg p.o. daily. 6. Cholestyramine q.3 days. 7. Metformin 40 mg p.o. daily. 8. Xanax 0.25 mg p.o. daily. 9. Aspirin 81 mg p.o. daily. ALLERGIES: LEVAQUIN AND PENICILLIN. FAMILY HISTORY: Sister with multiple sclerosis. Mother at the age of 89. SOCIAL HISTORY: Resides in [place], [place]. Requires 2 care providers daily. Uses electric wheelchair for mobilization. Does not drive. No alcohol, tobacco, or illicit drug use. REVIEW OF SYSTEMS: CONSTITUTIONAL: Negative for weight loss or gain, ability to conduct usual activities. SKIN: Negative for rash, itching. EYES: Negative for double vision, pain. ENT/MOUTH: Negative for nose bleeding, neck stiffness, pain, tenderness. CARDIOVASCULAR: Negative for palpitations, dyspnea on exertion, orthopnea. RESPIRATORY: Negative for shortness of breath, wheezing, cough, hemoptysis, fever or night sweats. GASTROINTESTINAL: Negative for poor appetite, abdominal pain, heartburn, nausea, vomiting, constipation, or diarrhea. GENITOURINARY: Negative for urgency, frequency, dysuria, nocturia. MUSCULOSKELETAL: Negative for pain, swelling. NEUROLOGIC/PSYCHIATRIC: Negative for anxiety, depression. ALLERGY/IMMUNOLOGIC: Negative for skin rash, bleeding tendency. Otherwise negative except as stated per HPI. PHYSICAL EXAMINATION: VITAL SIGNS: On admission, blood pressure 179/74, pulse 93, respiratory rate 22, temperature 100.2 degrees Fahrenheit, O2 saturation 95% on room air. GENERAL APPEARANCE: This is a 64-year-old female, alert and oriented x3, pleasant, smiling, in no acute distress. HEENT: Pupils are equal, round, reactive to light and accommodation. Extraocular muscles are intact. No scleral icterus. No conjunctival injection. Nares patent. OP is clear. Teeth in poor repair. NECK: Supple. No cervical adenopathy. No thyromegaly. No carotid bruits. No JVD appreciated. Cervical spine with full active and passive range of motion. No meningeal signs noted. CHEST: Lungs are clear to auscultation bilaterally. CARDIOVASCULAR: S1, S2 without noted murmur, rub, or gallop. ABDOMEN: Rounded, soft, nontender, and nondistended. Bowel sounds are positive in all 4 quadrants. Ileostomy bag in place. EXTREMITIES: Warm and dry with fair turgor. No clubbing, cyanosis, or asymmetric edema appreciated. Pulses palpable distally at the dorsalis pedis, posterior tibial, and popliteal arteries bilaterally. Capillary refill less than 2 seconds. NEUROLOGIC: Left upper extremity with spontaneous movement. Flaccid paralysis of the right upper and bilateral lower extremities. Generalized atrophy of bilateral lower extremities. PERTINENT LABORATORY AND X-RAY FINDINGS: Sodium 138, potassium 3.3, chloride 104, CO2 of 22, BUN 17, creatinine 0.97, estimated GFR 58, glucose 105. Lactic acid level 0.8. LFTs within normal limits. CBC showed white blood cell count of 11.8, hemoglobin 13, hematocrit 40, and platelet count 344 with 82% neutrophils. Urinalysis shows positive nitrite with leukocyte esterase, greater than 50 wbc's per high-power field. EKG dated 01/20/2020, by my interpretation shows sinus mechanism with heart rates in the 90s. Normal axis. No acute ST-T wave changes appreciated. ASSESSMENT AND PLAN: 1. Urinary tract infection. The patient will be admitted to the medical floor. We will continue IV antibiotic therapy with vancomycin 1 g IV q.12 hours with additional Rocephin 2 g IV daily. Urine and blood cultures pending. Continue intravenous normal saline at 125 mL/h. 2. Hypokalemia. Continue potassium chloride supplementation and repeat potassium level in the a.m. 3. Renal lithiasis. We will consult Urology Service in the a.m. for any further recommendations and consideration for evaluation of the right staghorn calculus. 4. Multiple sclerosis. Advance process with right upper and bilateral lower extremity paralysis. Continue home regimen. General fall risk precautions. Turning protocol. 5. Prophylaxis. SCDs while in bed. Pepcid 20 mg p.o. b.i.d. Case management consult for disposition planning. CODE STATUS: Do not attempt resuscitation. Confirmed with the patient's surrogate medical decision maker, Kecia Urbina. Job ID: [id number]
[2020-01-21] MEDS: ALPRAZolam 0.25 MG TAB PO PRN ×2 (00:56→21:02)
[2020-01-21] MEDS: Acetaminophen 500 MG TAB PO PRN ×2 (02:18→17:57)
[2020-01-21] MEDS: Vancomycin HCl 750 MG in Sodium Chloride 0.9% 250 ML 250 ML IVPB SCH ×3 (05:34→19:01)
[2020-01-21 06:00] LABS: #Eosinphils 0.2 thou/uL (0.0-0.7); #Monocytes 0.8 thou/uL (0.11-0.59); #Neutrophils 5.9 thou/uL (1.40-6.50); %Basophils 0.5 % (0.0-1.0); %Eosinophils 2.1 % (0.0-10.0); %Lymphocytes 12.2 % (21.0-51.0); %Monocytes 10.5 % (0.0-10.0); %Neutrophils 74.6 % (42.0-75.0); Hemoglobin 10.6 g/dL (12.0-16.0); Mean Corpuscular HGB CONC 31.9 g/dL (32.0-36.0); Mean Corpuscular Hemoglobin 29.5 pg (27.0-31.0); Mean Corpuscular Volume 92.3 fL (78.0-98.0); Platelet Count 285 thou/uL (130-400); RBC Distribution Width 11.9 % (11.5-14.5); Red Blood Cell (RBC) Count 3.59 mill/uL (4.20-5.40); White Blood Cell (WBC) Count 7.9 thou/uL (4.8-10.8)
[2020-01-21] MEDS ORDERED: Clindamycin/D5W 900 MG in Premix Bag 1 BAG IVPB SCH (06:00)
[2020-01-21] MEDS ORDERED: Vancomycin 1 GM in Premix Bag 1 BAG IVPB SCH (06:00)
[2020-01-21 06:21] LABS: Anion Gap 10 mmol/L (10-20); BUN (Urea Nitrogen) 15 mg/dL (9.8-20.1); Calc. Creatinine Clearance 67 mL/min (70-130); Calcium 7.5 mg/dL (7.8-10.44); Carbon Dioxide 22 mmol/L (23-31); Chloride 112 mmol/L (98-107); Estimated GFR-MDRD 65; Glucose 83 mg/dL (80-115); Potassium 3.6 mmol/L (3.5-5.1); Sodium 140 mmol/L (136-145)
[2020-01-21] MEDS: Baclofen 10 MG TAB PO SCH ×3 (08:43→21:02)
[2020-01-21] MEDS: Famotidine 20 MG TAB PO SCH ×3 (08:43→21:02)
[2020-01-21] MEDS ORDERED: Vancomycin HCl 1 GM in Sodium Chloride 0.9% 250 ML 250 ML IVPB SCH (09:00)
[2020-01-21] MEDS ORDERED: traMADol HCl 50 MG TAB PO PRN (09:53)
[2020-01-21] MEDS ORDERED: AMINOPYRIDINE PO SCH (09:53)
--- NOTE | 2020-01-21 09:56 | CT ---
CT ABDOMEN AND PELVIS PERFORMED WITHOUT CONTRAST ENHANCEMENT: History: UTI, history of kidney stones. Comparison: 02-18-19 FINDINGS: There are small bilateral pleural effusions present. Right slightly larger than left. There are some atelectatic changes in the lung bases. The liver, spleen, and pancreas regions appear unremarkable given limitations of a noncontrast study. Gallbladder has been removed. Right adrenal gland is normal in appearance. A left adrenal low attenuation mass is most compatible w ith an adenoma is stable measuring approximately 1.6 cm. Cortical scarring involving the left kidney is seen. There are several lower pole right renal calculi in the 6 mm range and right sided hydroneph rosis related to what appear to be two calculi at the right ureteropelvic junction. Both of these megan sure in the 6 mm range. Ureter below this level is nondilated. There is no significant periaortic or mesenteric adenopathy. Fat stranding in the right pararenal fat is seen. CT OF PELVIS PERFORMED WITHOUT CONTRAST ENHANCEMENT: A moderate amount of stool is seen within the colon. No adenopathy or mass. The right sided ostomy is again demonstrated. There is dilatation to the bowel just at this level, similar to the previous exa m. Suggestion of some slight bladder wall thickening considering the degree of distention. Review of osseous structures shows no concerning lytic or blastic bony changes. Lungs are diffusely d emineralized. IMPRESSION: 1. Right sided renal calculi with moderate right sided hydronephrosis and hydroureter related to two 6 mm calculi at the right ureteral pelvic junction. 2. Cortical scarring involving the left kidney. Other incidental findings as noted above. POS: [facility]
--- NOTE | 2020-01-21 10:05 | PDOC.HOSPP ---
- Subjective Encounter Date: 01/21/20 Encounter Time: 10:03 Subjective: Ms. Moreira was seen today in follow-up of UTI and generalized weakness. She says is back to her baseline, and wants to go home. She believes she was just a little dehydrated. - Objective Vital Signs & Weight: Vital Signs (12 hours) Temp Pulse Resp BP Pulse Ox 01/21/20 07:04 98.9 F 90 17 120/75 95 01/21/20 04:00 99.7 F H 90 20 108/67 92 L 01/21/20 00:00 99.0 F 81 20 115/74 95 Weight Weight 145 lb Result Diagrams: 01/21/20 05:32 01/21/20 05:32 Hospitalist ROS - Medication Medications: Active Medications Generic Name Dose Route Start Last Admin Trade Name Freq PRN Reason Stop Dose Admin Acetaminophen 1,000 mg 01/20/20 22:14 01/21/20 02:18 Acetaminophen 500 Mg Tab PO 1,000 mg Q6H PRN Administration Mild Pain (1-3) Alprazolam 0.25 mg 01/21/20 00:45 01/21/20 00:56 Alprazolam 0.25 Mg Tab PO 0.25 mg TID PRN Administration Anxiety Sodium Chloride 1,000 mls @ 125 mls/hr 01/20/20 22:15 01/20/20 22:40 Normal Saline 0.9% IV 1,000 mls .Q8H KELTON Administration Ceftriaxone Sodium 2 gm/ 100 mls @ 200 mls/hr 01/20/20 23:00 01/20/20 22:41 Sodium Chloride IVPB 100 mls Q24HR KELTON Administration Vancomycin HCl 750 mg/ Sodium 250 mls @ 250 mls/hr 01/21/20 06:00 01/21/20 05:34 Chloride IVPB 250 mls 0600,1800 KELTON Administration - Exam Eye: PERRL, anicteric sclera Heart: RRR, no murmur, no gallops, no rubs, normal peripheral pulses Respiratory: CTAB, no wheezes, no rales, no ronchi, normal chest expansion, no tachypnea Gastrointestinal: soft, non-tender, non-distended, normal bowel sounds, no palpable masses, no hepatomegaly Extremities: 1+ LE edema Hosp A/P (1) UTI (urinary tract infection) Status: Acute Qualifiers: (2) HTN (hypertension) Code(s): I10 - ESSENTIAL (PRIMARY) HYPERTENSION Status: Chronic Qualifiers: (3) History of urostomy Code(s): Z98.89 - OTHER SPECIFIED POSTPROCEDURAL STATES * DO NOT USE * Status: Chronic (4) Multiple sclerosis Code(s): G35 - MULTIPLE SCLEROSIS Status: Chronic (5) Nephrolithiasis Status: Chronic - Plan * UTI- continue Rocephin IV * Await urine culture results * Dehydration- symptomatically improved * MS_ stable * Awaiting CT scan of the abdomen, and Urology evaluation
[2020-01-21] MEDS: AMINOPYRIDINE PO SCH ×2 (13:12→21:03)
[2020-01-21] MEDS: Sodium Chloride 0.9% 1,000 ML IV SCH ×3 (13:13→23:29)
--- NOTE | 2020-01-21 19:26 | CON ---
DATE OF CONSULTATION: 01/21/2020 HISTORY OF PRESENT ILLNESS: This is a 64-year-old white female, who I know fairly well. I think care of her for a number of years. She has had neurogenic bladder from multiple sclerosis and she was getting recurrent infections and problems related to stone formation. She ended up having the ileovesicostomy done in [place] a few years back. She had a fairly large stone in her right kidney requiring a percutaneous nephrostomy that was back in 2018 and 2019. She had an ESWL. She was admitted at this time with urinary tract infection, was found also to have right ureteral stones. She has not had a recent urine culture. It looks like the last one she had was on the 06 of January that was mixed skin cristiane, low counts. She had blood cultures done yesterday. I would have thought she had a urine culture done, but she does not appear that she did. She had a urinalysis from yesterday that showed 2+ bacteria, greater than 50 white cells, 11 to 10 red cells. Her creatinine was normal at 0.87. Her white count was slightly elevated at 11.8, it is 7.9 today. When she came in, she had a fever, I think over 102.0. She has had 99.7, 99.1 today, and she is not hypotensive. She actually feels a lot better. I reviewed her CAT scan, which shows right-sided renal calculi with some right-sided hydro. She got, looks like, two stones in the right ureter 6 mm in size. Abdomen is currently soft and nontender without flank tenderness. PAST MEDICAL HISTORY: She has MS and a lot of complications related to it. She is not ambulatory. She uses a wheelchair. She had a history of renal calculi on the right. She has some scarring of the left kidney. She has a history of depression, history of recurrent infections of the urine. PAST SURGICAL HISTORY: Includes ESWL, right percutaneous nephrostomy, tonsillectomy, ileovesicostomy, and cholecystectomy. CURRENT MEDICATIONS: Listed. Her current antibiotic is Rocephin and vancomycin. ALLERGIES: SHE HAS ALLERGIES TO LEVAQUIN AND PENICILLIN. LABORATORY DATA: Pending the results of the cultures. IMPRESSION: Urinary tract infection, appears to be doing well on current antibiotic regimen at least partially obstructing right ureteral stones. I do not think it is safer to go home with these. I think she needs a stent placed and she has already eaten today and she does not appear sick enough to risk of anesthetic, rapid sequence. We will go ahead and put her on for tomorrow unless she decompensates tonight. This has all been discussed with her. All questions have been answered. Job ID: [id number]
[2020-01-21] MEDS: cefTRIAXone\\ROCEPHIN 2 GM in Sodium Chloride 0.9% 100 ML IVPB SCH (23:29)
[2020-01-22 05:56] LABS: Vancomycin, Trough 17.6 ug/mL
[2020-01-22] MEDS: Vancomycin HCl 750 MG in Sodium Chloride 0.9% 250 ML 250 ML IVPB SCH ×2 (07:26→18:29)
[2020-01-22] MEDS: Sodium Chloride 0.9% 1,000 ML IV SCH ×3 (08:24→23:26)
[2020-01-22] MEDS ORDERED: Non-Formulary Item 1 EACH (Fluoxetine Hcl [Prozac] 40 MG Capsule) PO SCH (09:00)
[2020-01-22] MEDS ORDERED: Iothalamate Meglumine 60% 50 ML VIAL FS ONE (09:20)
[2020-01-22] MEDS ORDERED: Fentanyl 100 MCG/2 ML VIAL ONE (09:23)
[2020-01-22] MEDS ORDERED: Promethazine HCl 25 MG/ML VIAL IM PRN (10:31)
[2020-01-22] MEDS ORDERED: Promethazine HCl 25 MG/ML VIAL SLOW IVP PRN (10:31)
[2020-01-22] MEDS ORDERED: Ondansetron HCl/PF 4 MG/2 ML Vial IVP PRN (10:31)
--- NOTE | 2020-01-22 10:33 | RAD ---
EXAM: XR Abdomen 1 View/KUB PROVIDED CLINICAL HISTORY: Right renal stent, right nephrolithiasis and right ureteral calculus with hydronephrosis COMPARISON: CT abdomen on 01/21/2020 FINDINGS/IMPRESSION: Initial philosophy professor images demonstrate calcifications overlying the expected location of the proximal right ureter. Subsequent imaging demonstrates guidewire in place with final imaging demonstrating catheter in place and retrograde study demonstrating moderate to severe right hydronephrosis and dila tation of the proximal right ureter with filling defects in the proximal right ureter related to the proximal right renal calculi. An image with ureteral stent in place is not provided. Correlation with intraoperative findings is recommended. Fluoroscopy: Time-1 minute and 4 seconds Dose-1.82 Gy centimeter squared
[2020-01-22] MEDS ORDERED: Promethazine HCl 25 MG/ML VIAL ONE (10:36)
[2020-01-22] MEDS ORDERED: Lidocaine 1% PF 5 ML VIAL ONE (10:49)
[2020-01-22] MEDS ORDERED: PROPOFOL 200 MG/20 ML VIAL ONE (10:49)
[2020-01-22] MEDS ORDERED: Ondansetron PF 4 MG/2 ML Vial ONE (10:49)
[2020-01-22] MEDS ORDERED: Dexamethasone 20 MG/5 ML VIAL ONE (10:49)
[2020-01-22 13:17] LABS: SARS-CoV-2 MS2 Positive; SARS-CoV-2 N Gene Negative; SARS-CoV-2 S Gene Negative; SARS-CoV-2 by NAA Not Detected (NotDetected); SARS-CoV-2 orf1ab Negative
[2020-01-22] MEDS: Famotidine 20 MG TAB PO SCH ×2 (13:27→23:20)
[2020-01-22] MEDS: AMINOPYRIDINE PO SCH ×3 (13:27→20:54)
[2020-01-22] MEDS: FLUoxetine HCl 20 MG CAP PO SCH (13:27)
[2020-01-22] MEDS: Baclofen 10 MG TAB PO SCH ×2 (13:27→23:20)
--- NOTE | 2020-01-22 14:02 | OP ---
DATE OF PROCEDURE: 01/22/2020 PREOPERATIVE DIAGNOSES: Urinary tract infection, right ureteral stones. POSTOPERATIVE DIAGNOSES: Urinary tract infection, right ureteral stones. PROCEDURES PERFORMED: Cystoscopy, right retrograde, right stent. ANESTHETIC: General. ESTIMATED BLOOD LOSS: Minimal. FINDINGS: She had a lot of mucus in the bladder. Most of this, I think, is probably from the ileovesicostomy. Some of it could have been pus. She did have right hydronephrosis when she had pus in the collecting system above the 2 proximal ureteral stones. She had 2 proximal ureteral stones. These were easy to bypass with a guidewire. She had a 6 x 24 cm Polaris double-J stent placed. DESCRIPTION OF PROCEDURE: After obtaining written and verbal consent from the patient and after being sure, she was up-to-date on her IV antibiotics. She was taken to the operating suite. She was placed in a supine position on the treatment table. PlexiPulses were placed on lower extremities and turned on. She was given a general anesthetic and oral obturator intubation, placed in the dorsal lithotomy position, sterilely prepped and draped. C-arm was brought in and positioned over her, we could see the stones well. Cystoscopy was performed with a 22-Malawian sheath, this was well lubricated and passed under direct vision through the female urethra into the bladder. There was a lot of debris and mucus on the floor of the bladder from a preexisting ileovesicostomy. This was irrigated out. The bladder was inspected apart from some chronic inflammation. There was nothing to suggest a bladder tumor, foreign body, stone, or fistula. The ileovesicostomy site was patent. The right ureteral orifice was easy to identify, a guidewire was fed up to the level of the stones. The guidewire was manipulated by the stones without difficulty. A 5-Malawian Pollack catheter was advanced over the guidewire up in this region, the wire was removed. We injected about probably 10 to 12 mL of contrast filling out a dilated collecting system and proximal ureter down to the level of stones. The guidewires were placed up the open-ended catheter. The open-ended catheter was removed, and a 6 x 24 Polaris double-J stent was placed over the guidewire, pushing up into place with aid of a pusher, so its proximal end coiled in the renal pelvis and its distal end coiled in the bladder when the wire was removed. There was efflux of purulent urine through the distal end of double-J stent. At this point, the bladder was drained. The instruments were removed. The patient was taken out of the dorsal lithotomy position, awakened, extubated, and taken by stretcher to recovery room. Job ID: [id number]
--- NOTE | 2020-01-22 14:30 | PDOC.HOSPP ---
- Subjective Encounter Date: 01/22/20 Encounter Time: 14:30 Subjective: Ms. Moreira was seen today in follow-up of nephrolithiasis and UTI. She says she is feeling much better today. No new complaints. she feels much stronger today than yesterday. - Objective Vital Signs & Weight: Vital Signs (12 hours) Temp Pulse Resp BP BP Pulse Ox 01/22/20 11:33 98.4 F 80 16 155/86 H 97 01/22/20 11:22 98.1 F 77 18 162/83 H 95 01/22/20 08:00 98 01/22/20 06:55 99.2 F 85 15 149/82 H 93 L 01/22/20 04:52 99.0 F 87 20 135/81 96 Weight Weight 145 lb I&O: 01/21/20 01/22/20 01/23/20 06:59 06:59 06:59 Intake Total 1800 Output Total 4160 Balance -2360 Result Diagrams: 01/21/20 05:32 01/21/20 05:32 Hospitalist ROS - Medication Medications: Active Medications Generic Name Dose Route Start Last Admin Trade Name Freq PRN Reason Stop Dose Admin Acetaminophen 1,000 mg 01/20/20 22:14 01/21/20 17:57 Acetaminophen 500 Mg Tab PO 1,000 mg Q6H PRN Administration Mild Pain (1-3) Alprazolam 0.25 mg 01/21/20 00:45 01/21/20 21:02 Alprazolam 0.25 Mg Tab PO 0.25 mg TID PRN Administration Anxiety Baclofen 10 mg 01/21/20 09:00 01/22/20 13:27 Baclofen 10 Mg Tab PO Not Given BID KELTON Famotidine 20 mg 01/21/20 09:00 01/22/20 13:27 Famotidine 20 Mg Tab PO Not Given BID KELTON Fluoxetine HCl 40 mg 01/22/20 09:00 01/22/20 13:27 Fluoxetine Hcl 20 Mg Cap PO Not Given DAILY KELTON Sodium Chloride 1,000 mls @ 125 mls/hr 01/20/20 22:15 01/22/20 13:40 Normal Saline 0.9% IV Not Given .Q8H KELTON Ceftriaxone Sodium 2 gm/ 100 mls @ 200 mls/hr 01/20/20 23:00 01/21/20 23:29 Sodium Chloride IVPB 100 mls Q24HR KELTON Administration Vancomycin HCl 750 mg/ Sodium 250 mls @ 250 mls/hr 01/21/20 06:00 01/22/20 0 7:26 Chloride IVPB 250 mls 0600,1800 KELTON Administration Mirabegron 25 mg 01/22/20 09:00 01/22/20 13:27 Mirabegron Er 25 Mg Tab PO Not Given QAM [facility] 4-Aminopyridine 10 0 each 01/21/20 15:00 01/22/20 13:27 Mg PO Not Given TID KELTON Sodium Chloride 10 ml 01/21/20 21:00 01/22/20 12:27 Flush - Normal Saline 10 Ml Syringe IVF Not Given Q12HR KELTON - Exam Eye: PERRL, anicteric sclera Heart: RRR, no murmur, no gallops, no rubs, normal peripheral pulses Respiratory: CTAB, no wheezes, no rales, no ronchi, normal chest expansion, no tachypnea, normal percussion Gastrointestinal: soft, non-tender, non-distended Neurological - other findings: + right sided weakness Hosp A/P (1) UTI (urinary tract infection) Status: Acute Qualifiers: (2) HTN (hypertension) Code(s): I10 - ESSENTIAL (PRIMARY) HYPERTENSION Status: Chronic Qualifiers: (3) History of urostomy Code(s): Z98.89 - OTHER SPECIFIED POSTPROCEDURAL STATES * DO NOT USE * Status: Chronic (4) Multiple sclerosis Code(s): G35 - MULTIPLE SCLEROSIS Status: Chronic (5) Nephrolithiasis Status: Chronic - Plan * UTI- continue Rocephin IV * Urine culture results are still pending * She is s/p cystoscopy and right ureteral STENT placement * Dehydration- symptomatically improved * MS- stable
[2020-01-22] MEDS ORDERED: Polyethylene Glycol 3350 17 GM Packet PO PRN (19:55)
[2020-01-22] MEDS: ALPRAZolam 0.25 MG TAB PO PRN (23:20)
[2020-01-22] MEDS: cefTRIAXone\\ROCEPHIN 2 GM in Sodium Chloride 0.9% 100 ML IVPB SCH (23:28)
[2020-01-23] MEDS: ALPRAZolam 0.25 MG TAB PO PRN ×2 (05:34→21:44)
[2020-01-23] MEDS: Vancomycin HCl 750 MG in Sodium Chloride 0.9% 250 ML 250 ML IVPB SCH (05:35)
[2020-01-23] MEDS: Sodium Chloride 0.9% 1,000 ML IV SCH ×3 (05:41→22:55)
--- NOTE | 2020-01-23 10:28 | PDOC.HOSPP ---
- Subjective Encounter Date: 01/23/20 Encounter Time: 10:25 Subjective: Ms. Moreira was seen today in follow-up of Nephrolithiasis and UTI. she does not have any new complaints. - Objective Vital Signs & Weight: Vital Signs (12 hours) Temp Pulse Resp BP BP Pulse Ox 01/23/20 07:23 97.6 F 75 14 128/80 97 01/23/20 05:38 97.7 F 73 18 130/70 96 01/23/20 00:00 97.9 F 79 18 122/70 96 Weight Weight 145 lb I&O: 01/22/20 01/23/20 01/24/20 06:59 06:59 06:59 Intake Total 1800 1800 Output Total 4160 1040 Balance -2360 760 Result Diagrams: 01/21/20 05:32 01/21/20 05:32 Hospitalist ROS - Medication Medications: Active Medications Generic Name Dose Route Start Last Admin Trade Name Freq PRN Reason Stop Dose Admin Acetaminophen 1,000 mg 01/20/20 22:14 01/21/20 17:57 Acetaminophen 500 Mg Tab PO 1,000 mg Q6H PRN Administration Mild Pain (1-3) Alprazolam 0.25 mg 01/21/20 00:45 01/23/20 05:34 Alprazolam 0.25 Mg Tab PO 0.25 mg TID PRN Administration Anxiety Baclofen 10 mg 01/21/20 09:00 01/22/20 23:20 Baclofen 10 Mg Tab PO 10 mg BID KELTON Administration Famotidine 20 mg 01/21/20 09:00 01/22/20 23:20 Famotidine 20 Mg Tab PO 20 mg BID KELTON Administration Fluoxetine HCl 40 mg 01/22/20 09:00 01/22/20 13:27 Fluoxetine Hcl 20 Mg Cap PO Not Given DAILY KELTON Sodium Chloride 1,000 mls @ 125 mls/hr 01/20/20 22:15 01/23/20 05:41 Normal Saline 0.9% IV 1,000 mls .Q8H KELTON Administration Ceftriaxone Sodium 2 gm/ 100 mls @ 200 mls/hr 01/20/20 23:00 01/22/20 23:28 Sodium Chloride IVPB 100 mls Q24HR KELTON Administration Mirabegron 25 mg 01/22/20 09:00 09/30/20 13:27 Mirabegron Er 25 Mg Tab PO Not Given QAM [facility] 4-Aminopyridine 10 0 each 01/21/20 15:00 01/22/20 20:54 Mg PO Not Given TID [facility] Polyethylene Glycol 17 gm 01/22/20 19:55 01/22/20 20:54 Polyethylene Glycol 3350 17 Gm Packet PO 17 gm DAILYPRN PRN Administration Constipation Sodium Chloride 10 ml 01/21/20 21:00 01/22/20 20:55 Flush - Normal Saline 10 Ml Syringe IVF Not Given Q12HR KELTON - Exam Eye: PERRL, anicteric sclera Heart: RRR, no murmur, no gallops, no rubs, normal peripheral pulses Respiratory: CTAB, no wheezes, no rales, no ronchi, normal chest expansion, no tachypnea, normal percussion Gastrointestinal: soft, non-tender, non-distended, normal bowel sounds, no palpable masses, no hepatomegaly Extremities: no cyanosis, no edema Hosp A/P (1) UTI (urinary tract infection) Status: Acute Qualifiers: (2) HTN (hypertension) Code(s): I10 - ESSENTIAL (PRIMARY) HYPERTENSION Status: Chronic Qualifiers: (3) History of urostomy Code(s): Z98.89 - OTHER SPECIFIED POSTPROCEDURAL STATES * DO NOT USE * Status: Chronic (4) Multiple sclerosis Code(s): G35 - MULTIPLE SCLEROSIS Status: Chronic (5) Nephrolithiasis Status: Chronic - Plan * UTI- continue Rocephin IV and will discontinue Vancomycin * Urine culture results noted * She is s/p cystoscopy and right ureteral STENT placement * Dehydration- symptomatically improved * MS- stable- patient requests PT for range of motion and strengthening * Await further recommendations from Urology
[2020-01-23] MEDS: FLUoxetine HCl 20 MG CAP PO SCH (10:29)
[2020-01-23] MEDS: Famotidine 20 MG TAB PO SCH ×2 (10:30→21:44)
[2020-01-23] MEDS: AMINOPYRIDINE PO SCH ×3 (10:31→21:44)
[2020-01-23] MEDS: Baclofen 10 MG TAB PO SCH ×2 (10:31→21:44)
[2020-01-23] MEDS ORDERED: Bupropion 150 MG XL TAB PO SCH (10:45)
[2020-01-23] MEDS ORDERED: GLATIRAMER ACETATE 20 MG/ML SCH (11:15)
--- NOTE | 2020-01-23 13:00 | PRG ---
DATE OF SERVICE: 01/23/2020 This patient has been afebrile with stable vital signs. She feels much better today. She has a good room air saturations. Her blood pressures are fine. Her blood cultures unfortunately were negative, so we do not have any organism to base antibiotic susceptibilities on her, urine culture had multiple organisms. She has done well on Rocephin and she did get vancomycin I think until maybe yesterday. Now, we have her set up for shockwave therapy next Monday and that will mean that she cannot take any blood thinners or nonsteroidals between now and then as well as aspirin products. On reviewing her medications, it does not appear that she is getting any of those currently, so please make sure when we discharge her that she does not go on any of those. Now, she also will need another COVID test and she could do one tomorrow Monday, morning, and that would cover her for next Monday's procedure and that would probably be the best way to handle her as she is not going to easily be able to get in Monday afternoon or Monday to be COVID tested again because of her disability, so my recommendation will be to keep her today, keep her on Rocephin and vancomycin while she is in the hospital and discharge her on Bactrim as she has allergy to quinolones, so we will send her out on Bactrim. I think whether antibiotics she received as well as oral Bactrim as well as the fact that she is no longer obstructed that she will probably do fine and will bring her back on Monday next week for her procedure. This has been discussed with her and she seems agreeable to it. Job ID: [id number]
--- NOTE | 2020-01-23 15:17 | PQF ---
CLINICAL DOCUMENTATION CLARIFICATION FORM: Dear Dr. Angulo 01/23/20 Please exercise your independent, professional judgment in responding to the clarification form. Clinical indicators are provided on the bottom of this form for your review. Please check appropriate box(es): [ X ] Sepsis due to: ____UTI Due to: [ ] Device (please specify) [ ] Severe sepsis with associated acute organ dysfunction: [ ] Additional/Other: please specify: [ ] Localized infection without sepsis [ ] SIRS due to non-infectious process (please specify etiology) [ ] with organ dysfunction [ ] without organ dysfunction [ ] Other diagnosis [ ] Unable to determine In addition, please specify: Present on Admission (POA): [ X ] Yes [ ] No [ ] Unable to determine For continuity of documentation, please document condition throughout progress notes and discharge summary. Thank You. CLINICAL INDICATORS - SIGNS / SYMPTOMS / LABS / RESULTS AND LOCATION IN MR ER NOTE: "SEPSIS" H&P (HERRERA): "CONCERN FOR SEPSIS" WBC 01/19: 11.8 TEMP 102.5 (ER NOTE) RISKS: UTI (PN 01/22- SARA) UROSTOMY (PN 01/22- SARA) OP NOTE (CHELSEA): "SHE HAD A LOT OF MUCOUS IN THE BLADDER. MOST OF THIS, I THINK, IS PROBABLY FROM THE ILEOVESICOSTOMY" TREATMENT: RIGHT URETERAL STENT PLACEMENT (OP NOTE) IV CLINDAMYCIN (ER) IV VANCOMYCIN (ER-01/22) IV ROCEPHIN (01/19-PRESENT) IV FLUIDS (ER-PRESENT) URINE AND BLOOD CULTURES (01/19) CDS Signature: Brenda Powell RN Phone #: [phone] Date: 01/23/20 This is a permanent part of the Medical Record [facility]
[2020-01-23 19:38] VITALS: TEMP 98.3
[2020-01-23] MEDS: cefTRIAXone\\ROCEPHIN 2 GM in Sodium Chloride 0.9% 100 ML IVPB SCH (22:54)
[2020-01-24] MEDS: Sodium Chloride 0.9% 1,000 ML IV SCH ×2 (05:49→12:14)
[2020-01-24 07:12] VITALS: BP 144/79
[2020-01-24] MEDS: Famotidine 20 MG TAB PO SCH (08:21)
[2020-01-24] MEDS: Baclofen 10 MG TAB PO SCH (08:21)
[2020-01-24] MEDS: FLUoxetine HCl 20 MG CAP PO SCH (08:21)
[2020-01-24] MEDS: AMINOPYRIDINE PO SCH (08:22)
[2020-01-24] MEDS ORDERED: GLATIRAMER ACETATE 20 MG/ML SCH (09:00)
[2020-01-24] MEDS ORDERED: Bupropion 150 MG XL TAB PO SCH (09:00)
--- NOTE | 2020-01-24 09:44 | PDOC.HOSPP ---
- Subjective Encounter Date: 01/24/20 Encounter Time: 09:40 Subjective: Ms. Moreira was seen today in follow-up of Nephrolithiasis and UTI. She does not have any complaints. - Objective Vital Signs & Weight: Vital Signs (12 hours) Temp Pulse Resp BP Pulse Ox 01/24/20 08:00 98.3 F 80 16 144/79 H 96 01/24/20 07:10 98.3 F 80 20 144/79 H 96 01/24/20 07:00 98.3 F 80 16 144/79 H 96 Weight Weight 145 lb I&O: 01/23/20 01/24/20 01/25/20 06:59 06:59 06:59 Intake Total 1800 1740 Output Total 1040 1650 Balance 760 90 Result Diagrams: 01/21/20 05:32 01/21/20 05:32 Hospitalist ROS - Medication Medications: Active Medications Generic Name Dose Route Start Last Admin Trade Name Freq PRN Reason Stop Dose Admin Acetaminophen 1,000 mg 01/20/20 22:14 01/21/20 17:57 Acetaminophen 500 Mg Tab PO 1,000 mg Q6H PRN Administration Mild Pain (1-3) Alprazolam 0.25 mg 01/21/20 00:45 01/23/20 21:44 Alprazolam 0.25 Mg Tab PO 0.25 mg TID PRN Administration Anxiety Baclofen 10 mg 01/21/20 09:00 01/24/20 08:21 Baclofen 10 Mg Tab PO 10 mg BID KELTON Administration Bupropion HCl 150 mg 01/24/20 09:00 01/24/20 08:22 Bupropion 150 Mg Xl Tab PO 150 mg DAILY KELTON Administration Famotidine 20 mg 01/21/20 09:00 01/24/20 08:21 Famotidine 20 Mg Tab PO 20 mg BID KELTON Administration Fluoxetine HCl 40 mg 01/22/20 09:00 01/24/20 08:21 Fluoxetine Hcl 20 Mg Cap PO 40 mg DAILY KELTON Administration Sodium Chloride 1,000 mls @ 125 mls/hr 01/20/20 22:15 01/24/20 05:49 Normal Saline 0.9% IV Not Given .Q8H KELTON Ceftriaxone Sodium 2 gm/ 100 mls @ 200 mls/hr 01/20/20 23:00 01/23/20 22:54 Sodium Chloride IVPB 100 mls Q24HR KELTON Administration Mirabegron 25 mg 01/22/20 09:00 01/24/20 08:21 Mirabegron Er 25 Mg Tab PO 25 mg QAM KELTON Administration 4-Aminopyridine 10 0 each 01/21/20 15:00 01/24/20 08:22 Mg PO 1 each TID KELTON Administration Glatiramer Acetate 0 each 01/24/20 09:00 01/24/20 08:31 20 Mg/Ml Sc SC Not Given DAILY KELTON Polyethylene Glycol 17 gm 01/22/20 19:55 01/22/20 20:54 Polyethylene Glycol 3350 17 Gm Packet PO 17 gm DAILYPRN PRN Administration Constipation Sodium Chloride 10 ml 01/21/20 21:00 01/23/20 21:44 Flush - Normal Saline 10 Ml Syringe IVF Not Given Q12HR KELTON - Exam Eye: PERRL, anicteric sclera Heart: RRR, no murmur, no gallops, no rubs, normal peripheral pulses Respiratory: CTAB, no wheezes, no rales, no ronchi, normal chest expansion, no tachypnea, normal percussion Gastrointestinal: soft, non-tender, non-distended, normal bowel sounds, no palpable masses, no hepatomegaly Extremities: no cyanosis, no edema Hosp A/P (1) UTI (urinary tract infection) Status: Acute Qualifiers: (2) HTN (hypertension) Code(s): I10 - ESSENTIAL (PRIMARY) HYPERTENSION Status: Chronic Qualifiers: (3) History of urostomy Code(s): Z98.89 - OTHER SPECIFIED POSTPROCEDURAL STATES * DO NOT USE * Status: Chronic (4) Multiple sclerosis Code(s): G35 - MULTIPLE SCLEROSIS Status: Chronic (5) Nephrolithiasis Status: Chronic - Plan * UTI- as per Urology will send her home on Bactrim DS * She is s/p cystoscopy and right ureteral STENT placement * Dehydration- symptomatically improved * MS- stable- patient requests PT for range of motion and strengthening * Stable for discharge home
[2020-01-24 19:49] LABS: SARS-CoV-2 MS2 Positive; SARS-CoV-2 N Gene Negative; SARS-CoV-2 S Gene Negative; SARS-CoV-2 by NAA Not Detected (NotDetected); SARS-CoV-2 orf1ab Negative
--- NOTE | 2020-01-24 21:52 | DIS ---
DATE OF ADMISSION: 01/20/2020 DATE OF DISCHARGE: 01/24/2020 DISCHARGE DISPOSITION: Home. DISCHARGE DIAGNOSES: 1. Nephrolithiasis. 2. Urinary tract infection. 3. Multiple sclerosis with right upper extremity and bilateral lower extremity paralysis. 4. Hypokalemia, resolved. DISCHARGE MEDICATIONS: Include: 1. Bactrim DS one tablet p.o. b.i.d. for seven days. 2. Zyrtec 10 mg p.o. daily. 3. Xanax 0.25 mg p.o. at bedtime . 4. Tramadol 50 mg p.o. q.6. 5. Prozac 40 mg daily. 6. Myrbetriq 25 mg p.o. daily. 7. Fluticasone nasal spray daily. 8. Aspirin 81 mg p.o. daily. 9. Copaxone 20 mg subcu daily. 10. Bupropion XL 150 mg extended release daily. 11. 4-aminopyridine 10 mg p.o. t.i.d. 12. Betamethasone topical. IMAGING DONE DURING THE HOSPITAL STAY: The patient had a CT scan of the abdomen and pelvis in which there was a moderate amount of stool seen within the colon. There was no adenopathy or mass. There was a right-sided renal calculi with moderate right-sided hydronephrosis and hydroureter seen and some cortical scarring of the left kidney. The patient also had cystoscopy with retrograde and right stent placement. CODE STATUS: Full code. ALLERGIES: LEVOFLOXACIN AND PENICILLIN. HOSPITAL COURSE: Ms. Moreira is a 64-year-old female, who presented to the emergency room after having malaise, fevers, and chills. She was started on IV antibiotics including Rocephin and vancomycin initially. Urology was consulted. The patient underwent cystoscopy with a stent placement to the right ureter, relieving the obstruction. Urine cultures unfortunately showed multiple organisms and appeared to be possibly a contaminated sample. Blood cultures were negative. She was discharged on Bactrim due to allergies to Levaquin and penicillin. She is to follow up on Monday for lithotripsy and hopes of removing the stone. She was discharged home on 01/24/2020. A [employer] screen was done prior to discharge for her preop evaluation. Job ID: [id number]
--- NOTE | 2020-01-29 16:54 | EKG ---
Test Reason : Blood Pressure : / mmHG Vent. Rate : 090 BPM Atrial Rate : 090 BPM P-R Int : 154 ms QRS Dur : 100 ms QT Int : 412 ms P-R-T Axes : 047 -01 045 degrees QTc Int : 504 ms Normal sinus rhythm Cannot rule out Anterior infarct , age undetermined Abnormal ECG Confirmed by HILLARY SANTANA, GABE ([id number]), editorial specialist SHAVON DENG ([id number]) on 01/29/2020 4:53:44 PM Referred By: Confirmed By:GABE THORNTON MD
== END 2020-01-24 13:19 | disposition home or self-care (01) | DRG 854 ==
LOC: ERS 17:43 → T4-B 19:48
PROVIDERS: ADMIT Student in an Organized Health Care Education/Training Program; ATTEND Student in an Organized Health Care Education/Training Program
PROC: 0T768DZ Dilation of Right Ureter with Intraluminal Device, Via Natural or Artificial Opening Endoscopic (ICD-10-PCS; principal; 2020-01-22)
PROC: BT1DYZZ Fluoroscopy of Right Kidney, Ureter and Bladder using Other Contrast (ICD-10-PCS; 2020-01-22)
DX: A41.9 Sepsis, unspecified organism (principal); N13.6 Pyonephrosis; G81.91 Hemiplegia, unspecified affecting right dominant side; Z20.828 Contact with and (suspected) exposure to other viral communicable diseases; Z66 Do not resuscitate; G35 Multiple sclerosis; E87.6 Hypokalemia; F41.9 Anxiety disorder, unspecified; I10 Essential (primary) hypertension; F32.9 Major depressive disorder, single episode, unspecified; G83.14 Monoplegia of lower limb affecting left nondominant side; E86.0 Dehydration; Z90.49 Acquired absence of other specified parts of digestive tract; Z90.89 Acquired absence of other organs; Z93.2 Ileostomy status; Z79.82 Long term (current) use of aspirin; Z79.899 Other long term (current) drug therapy; Z88.1 Allergy status to other antibiotic agents; Z88.0 Allergy status to penicillin
CPT/HCPCS: 36415; 74018; 74176; 76000; 80048; 80053; 80202; 81003; 81015; 83605; 85025; 87040; 87086; 87635; 93005; 96365; 96367; J0696; J1100; J2405; J2550; J2704; J3010; J3370; J3490; J7050; J7070; U0003

== ENCOUNTER 2020-01-29 07:41 | Day surgery (SDC) | payer MEDICARE, MEDICAID ==
[2020-01-27 14:41] VITALS: BMI 25.7
[~2020-01-29 07:41] MED LIST changes: -ISOVUE-370 76%-LOCM 1 ML ONE; +Iothalamate Meglumine 60% 50 ML VIAL FS ONE
[2020-01-29] MEDS ORDERED: Fentanyl 100 MCG/2 ML VIAL ONE ×2 (08:08→10:13)
[2020-01-29] MEDS ORDERED: Midazolam HCl 2 mg/2 ml Vial ONE (08:20)
[2020-01-29 08:21] LABS: Platelet Count 648 thou/uL (130-400)
[2020-01-29 08:31] LABS: EPI 91 SEC (67-199)
[2020-01-29] MEDS ORDERED: cefTRIAXone\\ROCEPHIN 1 GM VIAL ONE (09:01)
[2020-01-29] MEDS ORDERED: PROPOFOL 200 MG/20 ML VIAL ONE (09:24)
[2020-01-29] MEDS ORDERED: Dexamethasone 20 MG/5 ML VIAL ONE (09:24)
[2020-01-29] MEDS ORDERED: PHENYLEPHRINE-NS 100 MCG/ML 10 ML SYRINGE ONE (09:24)
[2020-01-29] MEDS ORDERED: diphenhydrAMINE 50 MG/ML VIAL ONE (09:24)
[2020-01-29] MEDS ORDERED: Ondansetron PF 4 MG/2 ML Vial ONE (09:24)
--- NOTE | 2020-01-29 14:20 | OP ---
DATE OF PROCEDURE: 01/29/2020 PREOPERATIVE DIAGNOSIS: Right ureteral stones x2. POSTOPERATIVE DIAGNOSIS: Right ureteral stones x2. PROCEDURES PERFORMED: Right extracorporeal shockwave lithotripsy. ANESTHESIA: General. ESTIMATED BLOOD LOSS: Not recorded. INDICATIONS: She has 2 stones in the proximal ureter. The more distal of the two is probably 8 mm, more proximal 5 mm. They were adjacent to each other. They were treated together as they were close enough. A total of 2500 shocks were given, 2000 mainly at the slightly more distal and 500 at the slightly more proximally, it did appear to break up well. I did not remove her stent. We will look at taking that out after a KUB in a couple of weeks. DESCRIPTION OF PROCEDURE: After obtaining written and verbal consent from the patient, documenting normal preoperative blood work and platelet function assay, she was taken to the operating suite. She was given 2 g of IV Rocephin. She had been placed on the treatment table, given a general anesthetic and oral obturator intubation. She was then coupled with the lithotripsy unit and the stones were placed in the treatment focal point, most of the stone treatment initially on the more distal of the stones. As we treated the stones merged together, I think as they fragmented and they were basically treating this was done for a total of 2500 shocks at level 4 mostly, but a few 100 shocks at level 5 that were intermixed. A 5-minute pause was given after starting shockwave therapy. We were treated at a rate of 60 per minute. Our kV did not go up until after the 5-minute pause. At the end of 2500 shocks, she was awakened and extubated and taken by christaer to the recovery room. Job ID: [id number]
== END 2020-01-29 12:15 | disposition home or self-care (01) ==
LOC: SDC 07:41
PROVIDERS: ATTEND Urology
PROC: 0TF6XZZ Fragmentation in Right Ureter, External Approach (ICD-10-PCS; principal; 2020-01-29)
DX: N20.1 Calculus of ureter (principal); F32.9 Major depressive disorder, single episode, unspecified; Z79.899 Other long term (current) drug therapy; Z88.0 Allergy status to penicillin; Z88.1 Allergy status to other antibiotic agents
CPT/HCPCS: 36415; 85576; J0696; J1100; J1200; J2250; J2405; J2704; J3010

== ENCOUNTER 2020-02-05 19:18 | Emergency (ER) | payer MEDICARE, OTHER ==
[2020-02-05 19:58] LABS: #Basophils 0.1 thou/uL (0.0-0.2); #Eosinphils 0.3 thou/uL (0.0-0.7); #Lymphocytes 5.2 thou/uL (1.20-3.40); #Monocytes 0.9 thou/uL (0.11-0.59); #Neutrophils 7.8 thou/uL (1.40-6.50); %Basophils 0.5 % (0.0-1.0); %Eosinophils 1.9 % (0.0-10.0); %Lymphocytes 36.2 % (21.0-51.0); %Monocytes 6.6 % (0.0-10.0); %Neutrophils 54.8 % (42.0-75.0); Hemoglobin 13.8 g/dL (12.0-16.0); Mean Corpuscular HGB CONC 32.5 g/dL (32.0-36.0); Mean Corpuscular Hemoglobin 29.8 pg (27.0-31.0); Mean Corpuscular Volume 91.6 fL (78.0-98.0); Mean Platelet Volume 7.3 fL (7.4-10.4); Platelet Count 551 thou/uL (130-400); RBC Distribution Width 13.5 % (11.5-14.5); Red Blood Cell (RBC) Count 4.65 mill/uL (4.20-5.40); White Blood Cell (WBC) Count 14.3 thou/uL (4.8-10.8)
[2020-02-05] MEDS ORDERED: Lorazepam 2 MG/ML VIAL ONE (20:17)
[2020-02-05 20:18] LABS: ALT (SGPT) 23 U/L (8-55); AST (SGOT) 16 U/L (5-34); Alkaline Phosphatase 90 U/L (40-110); Anion Gap 20 mmol/L (10-20); BUN (Urea Nitrogen) 33 mg/dL (9.8-20.1); Bilirubin, Total 0.4 mg/dL (0.2-1.2); Calc. Creatinine Clearance 0 mL/min (70-130); Calcium 9.4 mg/dL (7.8-10.44); Carbon Dioxide 19 mmol/L (23-31); Chloride 104 mmol/L (98-107); Estimated GFR-MDRD 39; Globulin 2.7 g/dL (2.4-3.5); Glucose 107 mg/dL (80-115); Potassium 3.9 mmol/L (3.5-5.1); Protein, Total 6.7 g/dL (6.0-8.3); Sodium 139 mmol/L (136-145)
== END 2020-02-05 22:34 | disposition home or self-care (01) ==
LOC: ERS 19:18
DX: F41.0 Panic disorder [episodic paroxysmal anxiety] (principal); F32.9 Major depressive disorder, single episode, unspecified; Z79.899 Other long term (current) drug therapy; Z79.82 Long term (current) use of aspirin
CPT/HCPCS: 36415; 80053; 84484; 85025; 93005; 96374; J2060

== ENCOUNTER 2021-02-15 16:59 | Inpatient (IN) | payer MEDICARE, MEDICAID ==
[~2021-02-15 16:59] MED LIST changes: +Iopamidol-370 76% 500 ML 1 ML ONE; -Iothalamate Meglumine 60% 50 ML VIAL FS ONE
[2021-02-15 17:34] LABS: Bilirubin Negative (Negative); Blood, Urine 1+ (Negative); Clarity Turbid (Clear); Glucose, Urine (Dipstick) Normal (Negative); Ketone, Urine Negative (Negative); Leukocyte 500 Leu/uL (Negative); Nitrite 1+ (Negative); Protein, Urine (Dipstick) 10 mg/dL (Neg-Trace); RBC/HPF 0-3 HPF (0-3); Squamous Epithelial 0-3 HPF (0-3); Urobilinogen Normal mg/dL (Less than 2); pH, Urine 6.5 (5.0-9.0)
[2021-02-15 17:35] LABS: Bacteria/HPF 1+ HPF (None Seen)
[2021-02-15] MEDS ORDERED: Morphine 4 MG/ML VIAL ONE (17:49)
[2021-02-15] MEDS ORDERED: Ondansetron PF 4 MG/2 ML Vial ONE (17:49)
[2021-02-15] MEDS ORDERED: Acetaminophen 500 MG TAB ONE ×2 (18:27)
[2021-02-15 18:29] LABS: #Lymphocytes 1.1 thou/uL (1.20-3.40); #Monocytes 1.3 thou/uL (0.11-0.59); #Neutrophils 14.6 thou/uL (1.40-6.50); %Basophils 0.1 % (0.0-1.0); %Eosinophils 0.1 % (0.0-10.0); %Lymphocytes 6.4 % (21.0-51.0); %Monocytes 7.8 % (0.0-10.0); %Neutrophils 85.7 % (42.0-75.0); Hemoglobin 13.2 g/dL (12.0-16.0); Mean Corpuscular Hemoglobin 29.6 pg (27.0-31.0); Mean Corpuscular Volume 89.7 fL (78.0-98.0); Mean Platelet Volume 7.3 fL (7.4-10.4); Platelet Count 300 thou/uL (130-400); RBC Distribution Width 12.4 % (11.5-14.5); Red Blood Cell (RBC) Count 4.47 mill/uL (4.20-5.40)
[2021-02-15 19:02] LABS: ALT (SGPT) 12 U/L (8-55); AST (SGOT) 15 U/L (5-34); Albumin 3.5 g/dL (3.4-4.8); Alkaline Phosphatase 88 U/L (40-110); Anion Gap 17 mmol/L (10-20); BUN (Urea Nitrogen) 32 mg/dL (9.8-20.1); Bilirubin, Total 0.7 mg/dL (0.2-1.2); Calc. Creatinine Clearance 0 mL/min (70-130); Calcium 8.4 mg/dL (7.8-10.44); Carbon Dioxide 18 mmol/L (23-31); Chloride 107 mmol/L (98-107); Globulin 2.3 g/dL (2.4-3.5); Glucose 109 mg/dL (80-115); Lipase 13 U/L (8-78); Potassium 3.9 mmol/L (3.5-5.1); Protein, Total 5.8 g/dL (5.8-8.1); Sodium 138 mmol/L (136-145)
[2021-02-15] MEDS ORDERED: cefTRIAXone\\ROCEPHIN 2 GM VIAL ONE (20:38)
[2021-02-15 21:37] LABS: Lactic Acid 1.2 mmol/L (0.5-2.2)
[2021-02-15] MEDS ORDERED: Ondansetron ODT 4 MG TAB PO PRN (22:57)
[2021-02-15] MEDS ORDERED: Acetaminophen 650 MG Suppository PR PRN (22:57)
[2021-02-15] MEDS ORDERED: Ondansetron PF 4 MG/2 ML Vial IVP PRN (22:57)
[2021-02-15 23:19] VITALS: BMI 30.2
[2021-02-16] MEDS ORDERED: Pharmacy to Dose : CEFEPIME IVPB PRN (00:03)
[2021-02-16] MEDS: Sodium Chloride 0.9% 1,000 ML IV SCH ×3 (00:40→20:45)
[2021-02-16] MEDS: Acetaminophen 325 MG TAB PO PRN (03:50)
[2021-02-16 06:15] LABS: #Lymphocytes 0.8 thou/uL (1.20-3.40); #Monocytes 1.4 thou/uL (0.11-0.59); #Neutrophils 13.3 thou/uL (1.40-6.50); %Basophils 0.1 % (0.0-1.0); %Eosinophils 0.1 % (0.0-10.0); %Monocytes 9.1 % (0.0-10.0); %Neutrophils 85.6 % (42.0-75.0); Hemoglobin 12.7 g/dL (12.0-16.0); Mean Corpuscular HGB CONC 32.3 g/dL (32.0-36.0); Mean Corpuscular Volume 89.9 fL (78.0-98.0); Mean Platelet Volume 7.1 fL (7.4-10.4); Platelet Count 257 thou/uL (130-400); RBC Distribution Width 12.6 % (11.5-14.5); Red Blood Cell (RBC) Count 4.37 mill/uL (4.20-5.40); White Blood Cell (WBC) Count 15.6 thou/uL (4.8-10.8)
[2021-02-16 06:43] LABS: BUN (Urea Nitrogen) 26 mg/dL (9.8-20.1); Calc. Creatinine Clearance 45 mL/min (70-130); Calcium 7.6 mg/dL (7.8-10.44); Carbon Dioxide 15 mmol/L (23-31); Chloride 113 mmol/L (98-107); Glucose 127 mg/dL (80-115); Potassium 3.7 mmol/L (3.5-5.1); Sodium 140 mmol/L (136-145)
[2021-02-16 06:44] LABS: Anion Gap 16 mmol/L (10-20)
[2021-02-16] MEDS: Enoxaparin Sodium 30 MG/0.3 ML SYRINGE SC SCH (08:10)
[2021-02-16] MEDS: Cefepime 2 GM in Sodium Chloride 0.9% 100 ML IVPB SCH (08:15)
[2021-02-16] MEDS ORDERED: VANCOMYCIN 1.25 GM/250 ML BAG 1.25 GM in Premix Bag 1 BAG IVPB SCH (09:00)
[2021-02-16 10:29] LABS: SARS-CoV-2 NAA Rapid Test Not Detected (NotDetected)
[2021-02-16] MEDS ORDERED: Fentanyl 100 MCG/2 ML VIAL ONE (10:47)
[2021-02-16] MEDS ORDERED: Iothalamate Meglumine 60% 50 ML VIAL FS ONE (10:56)
[2021-02-16] MEDS ORDERED: SUGAMMADEX SODIUM 200 MG/2 ML VIAL ONE (11:26)
[2021-02-16] MEDS ORDERED: Ondansetron PF 4 MG/2 ML Vial ONE (11:43)
[2021-02-16] MEDS ORDERED: PROPOFOL 200 MG/20 ML VIAL ONE (11:43)
[2021-02-16] MEDS ORDERED: Lidocaine 1% PF 5 ML VIAL ONE (11:43)
[2021-02-16] MEDS ORDERED: Rocuronium Bromide 10 MG/ML (10ML VIAL) ONE (11:43)
[2021-02-16] MEDS: ALPRAZolam 0.25 MG TAB PO PRN (16:06)
[2021-02-16 21:05] LABS: Anion Gap 15 mmol/L (10-20); BUN (Urea Nitrogen) 24 mg/dL (9.8-20.1); Calc. Creatinine Clearance 48 mL/min (70-130); Calcium 7.9 mg/dL (7.8-10.44); Carbon Dioxide 19 mmol/L (23-31); Chloride 110 mmol/L (98-107); Glucose 146 mg/dL (80-115); Potassium 3.9 mmol/L (3.5-5.1); Sodium 140 mmol/L (136-145)
[2021-02-16] MEDS: ALPRAZolam 0.25 MG TAB PO SCH (21:25)
[2021-02-16] MEDS ORDERED: Vancomycin HCl 750 MG in Sodium Chloride 0.9% 250 ML 250 ML IVPB SCH (22:00)
[2021-02-17] MEDS: Acetaminophen 325 MG TAB PO PRN ×2 (05:32→11:56)
[2021-02-17] MEDS: Sodium Chloride 0.9% 1,000 ML IV SCH ×2 (06:09→16:22)
[2021-02-17] MEDS: Levothyroxine Sodium 25 MCG TAB PO SCH (06:09)
[2021-02-17] MEDS: FLUoxetine HCl 20 MG CAP PO SCH (08:12)
[2021-02-17] MEDS: Bupropion 150 MG XL TAB PO SCH (08:12)
[2021-02-17] MEDS: Enoxaparin Sodium 30 MG/0.3 ML SYRINGE SC SCH (08:13)
[2021-02-17] MEDS: Cefepime 2 GM in Sodium Chloride 0.9% 100 ML IVPB SCH (08:14)
[2021-02-17] MEDS: Enoxaparin Sodium 40 MG/0.4 ML SYRINGE SC SCH (08:24)
[2021-02-17] MEDS ORDERED: Fluticasone Propionate Nasal Spray 16 gm Bottle NASAL PRN (10:46)
[2021-02-17] MEDS ORDERED: Polyvinyl Alcohol 1.4%/Povidone 0.6% Opth Drops EA EYE PRN (10:46)
[2021-02-17] MEDS ORDERED: Loratadine 10 MG TAB PO PRN (11:06)
[2021-02-17] MEDS ORDERED: Betamethasone 0.1% Cream 15 GM TUBE TOP PRN (11:16)
[2021-02-17] MEDS ORDERED: Baclofen 10 MG TAB PO SCH (14:45)
[2021-02-17 21:34] LABS: Vancomycin, Trough 12.9 ug/mL
[2021-02-17] MEDS: ALPRAZolam 0.25 MG TAB PO SCH (21:56)
[2021-02-18] MEDS: Sodium Chloride 0.9% 1,000 ML IV SCH (01:46)
[2021-02-18] MEDS: Levothyroxine Sodium 25 MCG TAB PO SCH (05:20)
[2021-02-18] MEDS: FLUoxetine HCl 20 MG CAP PO SCH (08:56)
[2021-02-18] MEDS: LACTINEX 1 TAB PO SCH (08:56)
[2021-02-18 08:57] LABS: #Basophils 0.1 thou/uL (0.0-0.2); #Eosinphils 0.2 thou/uL (0.0-0.7); #Lymphocytes 1.4 thou/uL (1.20-3.40); #Monocytes 1.4 thou/uL (0.11-0.59); %Basophils 0.5 % (0.0-1.0); %Eosinophils 1.7 % (0.0-10.0); %Lymphocytes 12.4 % (21.0-51.0); %Monocytes 12.4 % (0.0-10.0); Hemoglobin 12.5 g/dL (12.0-16.0); Mean Corpuscular HGB CONC 33.2 g/dL (32.0-36.0); Mean Corpuscular Hemoglobin 29.9 pg (27.0-31.0); Mean Corpuscular Volume 90.1 fL (78.0-98.0); Mean Platelet Volume 7.9 fL (7.4-10.4); Platelet Count 307 thou/uL (130-400); RBC Distribution Width 12.7 % (11.5-14.5); Red Blood Cell (RBC) Count 4.17 mill/uL (4.20-5.40)
[2021-02-18] MEDS: Enoxaparin Sodium 40 MG/0.4 ML SYRINGE SC SCH (08:57)
[2021-02-18] MEDS: Cefepime 2 GM in Sodium Chloride 0.9% 100 ML IVPB SCH (08:57)
[2021-02-18] MEDS ORDERED: Baclofen 10 MG TAB PO SCH (09:00)
[2021-02-18] MEDS: GLATIRAMER ACETATE 20 MG/ML SCH (09:02)
[2021-02-18 09:16] LABS: Anion Gap 15 mmol/L (10-20); BUN (Urea Nitrogen) 18 mg/dL (9.8-20.1); Calc. Creatinine Clearance 61 mL/min (70-130); Calcium 8.1 mg/dL (7.8-10.44); Carbon Dioxide 17 mmol/L (23-31); Chloride 112 mmol/L (98-107); Glucose 96 mg/dL (80-115); Potassium 3.3 mmol/L (3.5-5.1); Sodium 141 mmol/L (136-145)
[2021-02-18] MEDS ORDERED: traMADol HCl 50 MG TAB PO PRN (09:46)
[2021-02-18] MEDS ORDERED: Temazepam 15 MG CAP PO PRN (09:47)
[2021-02-18] MEDS: Bupropion 150 MG XL TAB PO SCH (10:33)
[2021-02-18] MEDS: Baclofen 10 MG TAB PO SCH ×2 (14:26→21:59)
[2021-02-18] MEDS: ALPRAZolam 0.25 MG TAB PO PRN (14:33)
[2021-02-18] MEDS: Cipro 250 MG TAB PO SCH (21:59)
[2021-02-18] MEDS: ALPRAZolam 0.25 MG TAB PO SCH (21:59)
[2021-02-19] MEDS: Levothyroxine Sodium 25 MCG TAB PO SCH (06:45)
[2021-02-19 07:37] VITALS: BP 126/74; TEMP 98.2
[2021-02-19] MEDS: Cipro 250 MG TAB PO SCH (08:46)
[2021-02-19] MEDS: LACTINEX 1 TAB PO SCH (08:46)
[2021-02-19] MEDS: Enoxaparin Sodium 40 MG/0.4 ML SYRINGE SC SCH (08:46)
[2021-02-19] MEDS: Baclofen 10 MG TAB PO SCH (08:46)
[2021-02-19] MEDS: Bupropion 150 MG XL TAB PO SCH (08:46)
[2021-02-19] MEDS: FLUoxetine HCl 20 MG CAP PO SCH (08:46)
[2021-02-19] MEDS: GLATIRAMER ACETATE 20 MG/ML SCH (08:49)
== END 2021-02-19 11:00 | disposition home or self-care (01) | DRG 854 ==
LOC: ERS 16:59 → 3SE 21:22 → T4-B 02-16 20:43
PROVIDERS: ADMIT Student in an Organized Health Care Education/Training Program; ATTEND Family Medicine
PROC: 0T768DZ Dilation of Right Ureter with Intraluminal Device, Via Natural or Artificial Opening Endoscopic (ICD-10-PCS; principal; 2021-02-16)
PROC: BT1DZZZ Fluoroscopy of Right Kidney, Ureter and Bladder (ICD-10-PCS; 2021-02-16)
DX: A41.52 Sepsis due to Pseudomonas (principal); N17.9 Acute kidney failure, unspecified; N13.6 Pyonephrosis; E87.1 Hypo-osmolality and hyponatremia; I69.954 Hemiplegia and hemiparesis following unspecified cerebrovascular disease affecting left non-dominant side; E87.2 Acidosis; Z20.822 Contact with and (suspected) exposure to COVID-19; R65.20 Severe sepsis without septic shock; F41.9 Anxiety disorder, unspecified; G35 Multiple sclerosis; F32.A Depression, unspecified; N18.30 Chronic kidney disease, stage 3 unspecified; I12.9 Hypertensive chronic kidney disease with stage 1 through stage 4 chronic kidney disease, or unspecified chronic kidney disease; Z90.49 Acquired absence of other specified parts of digestive tract; Z93.2 Ileostomy status; Z90.09 Acquired absence of other part of head and neck; Z88.1 Allergy status to other antibiotic agents; Z88.0 Allergy status to penicillin; Z79.899 Other long term (current) drug therapy; Z79.890 Hormone replacement therapy
CPT/HCPCS: 36415; 71045; 74177; 74420; 80048; 80053; 80202; 81003; 81015; 83605; 83690; 85025; 87040; 87077; 87086; 87149; 87186; 93005; 96365; 96375; C2617; J0692; J0696; J1650; J2270; J2405; J2704; J3010; J3370; J3490; J7030; J7050; Q9961-U8; Q9967; U0002

== ENCOUNTER 2021-03-04 11:02 | Outpatient (CLI) | payer MEDICARE, MEDICAID ==
[2021-03-04 13:29] LABS: Hemoglobin 13.8 g/dL (12.0-15.5); Mean Corpuscular HGB CONC 30.8 g/dL (32.0-36.0); Mean Corpuscular Hemoglobin 28.1 pg (27.0-33.0); Mean Corpuscular Volume 91.2 fl (81.6-98.3); Mean Platelet Volume 9.9 fl (7.4-10.4); Platelet Count 557 10x3/uL (150-450); RBC Distribution Width 13.5 % (11.5-14.5); Red Blood Cell (RBC) Count 4.91 10x6/uL (3.90-5.03); White Blood Cell (WBC) Count 8.1 10x3/uL (3.5-10.5)
[2021-03-04 13:51] LABS: Anion Gap 20 mmol/L (10-20); BUN (Urea Nitrogen) 30 mg/dL (9.8-20.1); Calc. Creatinine Clearance 0 mL/min (70-130); Calcium 9.8 mg/dL (7.8-10.44); Carbon Dioxide 27 mmol/L (23-31); Chloride 102 mmol/L (98-107); Glucose 74 mg/dL (80-115); Sodium 144 mmol/L (136-145)
[2021-03-05 11:54] LABS: SARS-CoV-2 PCR by NAA Not Detected (NotDetected)
== END 2021-03-04 11:03 | disposition home or self-care (01) ==
LOC: LABBT 11:02
PROVIDERS: ATTEND Urology
DX: Z01.812 Encounter for preprocedural laboratory examination (principal); N20.2 Calculus of kidney with calculus of ureter; Z20.822 Contact with and (suspected) exposure to COVID-19
CPT/HCPCS: 80048; 85027; U0003; U0005

== ENCOUNTER 2021-03-09 12:39 | Day surgery (SDC) | payer MEDICARE, MEDICAID ==
[2021-03-08 10:07] VITALS: BMI 26.5
[2021-03-09] MEDS ORDERED: Cefepime 2 GM in Sodium Chloride 0.9% 100 ML IVPB SCH (13:15)
[2021-03-09] MEDS ORDERED: Midazolam HCl 2 mg/2 ml Vial ONE (14:00)
[2021-03-09] MEDS ORDERED: Iothalamate Meglumine 60% 50 ML VIAL FS ONE (14:13)
[2021-03-09] MEDS ORDERED: Fentanyl 100 MCG/2 ML VIAL ONE ×2 (14:21→15:50)
[2021-03-09] MEDS ORDERED: Dexamethasone 20 MG/5 ML VIAL ONE (14:37)
[2021-03-09] MEDS ORDERED: PHENYLEPHRINE-NS 100 MCG/ML 10 ML SYRINGE ONE (14:37)
[2021-03-09] MEDS ORDERED: Lidocaine 1% PF 5 ML VIAL ONE (14:37)
[2021-03-09] MEDS ORDERED: Ondansetron PF 4 MG/2 ML Vial ONE (14:37)
[2021-03-09] MEDS ORDERED: PROPOFOL 200 MG/20 ML VIAL ONE (14:37)
== END 2021-03-09 18:19 | disposition home or self-care (01) ==
LOC: SDC 12:39
PROVIDERS: ATTEND Urology
PROC: 0TC38ZZ Extirpation of Matter from Right Kidney Pelvis, Via Natural or Artificial Opening Endoscopic (ICD-10-PCS; principal; 2021-03-09)
PROC: 0TC68ZZ Extirpation of Matter from Right Ureter, Via Natural or Artificial Opening Endoscopic (ICD-10-PCS; 2021-03-09)
PROC: 0T768DZ Dilation of Right Ureter with Intraluminal Device, Via Natural or Artificial Opening Endoscopic (ICD-10-PCS; 2021-03-09)
DX: N20.2 Calculus of kidney with calculus of ureter (principal); Z79.899 Other long term (current) drug therapy; Z88.0 Allergy status to penicillin; Z88.1 Allergy status to other antibiotic agents
CPT/HCPCS: 52356; Q9961; 82365; 88300; C2617; J0692; J2250; J3010; J3490

== ENCOUNTER 2024-11-23 16:19 | Emergency (ER) | payer MEDICARE, MEDICAID ==
[~2024-11-23 16:19] MED LIST changes: -Iopamidol-370 76% 500 ML 1 ML ONE; +Iopamidol-370 76% 500 ML MDV (1 ML CHARGE) ONE
[2024-11-23 16:42] LABS: #Basophils 0.05 10x3/uL (0.0-0.2); #Eosinophils 0.20 10x3/uL (0.0-0.7); #Monocytes 0.85 10x3/uL (0.11-0.59); #Neutrophils 5.57 10x3/uL (1.40-6.50); %Basophils 0.6 % (0.0-1.0); %Eosinophils 2.2 % (0.0-10.0); %Lymphocytes 25.3 % (21.0-51.0); %Monocytes 9.5 % (0.0-10.0); %Neutrophils 62.2 % (42.0-75.0); Hematocrit 34.9 % (36.0-47.0); Hemoglobin 11.2 g/dL (12.0-16.0); Mean Corpuscular Hemoglobin 27.2 pg (27.0-31.0); Mean Corpuscular Volume 84.7 fL (78.0-98.0); Platelet Count 432 10x3/uL (130-400); Red Blood Cell (RBC) Count 4.12 mill/uL (4.20-5.40); White Blood Cell (WBC) Count 8.95 10x3/uL (4.8-10.8)
[2024-11-23 16:59] LABS: ALT (SGPT) 38 U/L (Less than 34); AST (SGOT) 49 U/L (11-34); Albumin 3.6 g/dL (3.1-4.5); Alkaline Phosphatase 80 U/L (40-110); Anion Gap 20 mmol/L (10-20); BUN (Urea Nitrogen) 31 mg/dL (9.8-20.1); Bilirubin, Total 0.4 mg/dL (0.3-1.2); Calc. Creatinine Clearance 0 mL/min (70-130); Calcium 9.1 mg/dL (7.8-10.44); Carbon Dioxide 21 mmol/L (23-31); Chloride 104 mmol/L (98-107); Globulin 3.5 g/dL (2.4-3.5); Glucose 111 mg/dL (80-115); Lipase 30 U/L (8-78); Magnesium 2.5 mg/dL (1.6-2.6); Potassium 3.7 mmol/L (3.5-5.1); Sodium 141 mmol/L (136-145)
[2024-11-23 17:02] LABS: Troponin I Less than 0.010 ng/mL (< 0.028)
[2024-11-23 18:02] LABS: CAUTI Indications for Culture Pelvic or flank pain; Glucose, Urine (Dipstick) Normal (Negative); Leukocyte 500 Leu/uL (Negative); Protein, Urine (Dipstick) Negative (Neg-Trace); Specific Gravity, Urine 1.009 (1.002-1.036); WBC/HPF 21-50 HPF (0-3)
[2024-11-23 18:10] LABS: Bacteria/HPF 1+ HPF (None Seen); Yeast-Budding 1+ HPF (None Seen)
[2024-11-23 18:11] LABS: Urine Culture Reflex Yes Yes
[2024-11-23] MEDS ORDERED: cefTRIAXone (ROCEPHIN) 2 GM VIAL ONE (18:35)
== END 2024-11-23 19:35 | disposition home or self-care (01) ==
LOC: ERS 16:19
DX: N39.0 Urinary tract infection, site not specified (principal); R53.1 Weakness; Z55.6 Problems related to health literacy
CPT/HCPCS: 71045; 71275; 81001; 83605; 83690; 83735; 83880; 84484; 87077; 87086; 87186; 93005; 96374; 99285; J0696; Q9967; 36415; 80053; 84443; 85025